=== PATIENT | female | born 1930 | race Caucasian/White ===

== ENCOUNTER 2016-11-25 19:54 | Inpatient (IN) | payer MEDICARE, OTHER ==
--- NOTE | 2016-11-25 20:28 | EDM.PDOC ---
ED HPI GENERAL MEDICAL PROBLEM - General Chief Complaint: Respiratory Problem Stated Complaint: FEVER Time Seen by Provider: 11/25/16 20:02 Source of Information: Reports: Patient, Family History Limitations: Reports: Respiratory Distress - History of Present Illness INITIAL COMMENTS - FREE TEXT/NARRATIVE: 86 years old w f come to the ed with her daughter due to F/C, weakness and cough. Pt lives by herself. Pt has IDDM (bridle), No dysuria. No other acute medical Issues at this time. Onset: Today, Gradual, Unknown/Unsure Onset Date: 11/24/16 Onset Time: 18:00 Duration: Day(s): Location: Reports: Chest Quality: Reports: Ache Severity: Mild Improves with: Reports: None Worsens with: Reports: Breathing Associated Symptoms: Reports: Fever/Chills, Nausea/Vomiting - Related Data Allergies Allergy/AdvReac Type Severity Reaction Status Date / Time amoxicillin Allergy Hives Verified 04/28/16 16:41 erythromycin base Allergy Swelling Verified 05/19/16 13:10 Fish Containing Products Allergy Swelling Verified 05/19/16 13:10 iodine Allergy Swelling Verified 04/28/16 16:41 latex Allergy Swelling Verified 04/28/16 16:41 Penicillins Allergy Hives Verified 04/28/16 16:41 Home Meds: Home Meds Furosemide 20 mg PO DAILY 11/30/15 [History] Insulin Aspart [NovoLOG] 5 unit SQ WITHMEALSANDBED 11/30/15 [History] Insulin Glarg,Human.Rec.Analog [LantUS Solostar] 28 unit SUBCUT DAILY 11/30/15 [ History] Levothyroxine Sodium [Synthroid] 75 mcg PO ACBREAKFAST 11/30/15 [History] Losartan [Cozaar] 100 mg PO DAILY 11/30/15 [History] Metoprolol Succinate [Toprol XL] 50 mg PO DAILY 11/30/15 [History] amLODIPine [Norvasc] 10 mg PO DAILY 11/30/15 [History] Albuterol/Ipratropium [DuoNeb 3.0-0.5 MG/3 ML] 1 inh INH DAILY 05/19/16 [History ] Cholecalciferol (Vitamin D3) [Vitamin D3] 1,000 unit PO DAILY 05/19/16 [History] Multivitamin [Multi-Vitamin Daily] 1 tab PO DAILY 05/19/16 [History] Potassium Chloride 10 meq PO BID 05/19/16 [History] Past Medical History HEENT History: Reports: Impaired Vision Cardiovascular History: Reports: Hypertension Respiratory History: Reports: Other (See Below) Other Respiratory History: smoker's cough Gastrointestinal History: Reports: Bowel Obstruction, Cholelithiasis, Chronic Diarrhea Genitourinary History: Reports: UTI, Recurrent 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 Dermatologic History: Reports: Eczema - Infectious Disease History Infectious Disease History: Reports: Chicken Pox, Measles, Shingles - Past Surgical History HEENT Surgical History: Reports: Adenoidectomy, Cataract Surgery, Tonsillectomy GI Surgical History: Reports: Appendectomy, Cholecystectomy, Colostomy, Other ( See Below) Musculoskeletal Surgical History: Reports: None Social & Family History - Family History Family Medical History: Noncontributory - Tobacco Use Smoking Status *Q: Current Every Day Smoker Years of Tobacco use: 40 Packs/Tins Daily: 1 Second Hand Smoke Exposure: No - Caffeine Use Caffeine Use: Reports: Coffee, Tea - Recreational Drug Use Recreational Drug Use: No ED ROS GENERAL - Review of Systems Review Of Systems: See Below Constitutional: Reports: Fever, Chills, Weakness, Decreased Appetite HEENT: Reports: No Symptoms Respiratory: Reports: Cough Cardiovascular: Reports: No Symptoms Endocrine: Reports: No Symptoms GI/Abdominal: Reports: No Symptoms : Reports: No Symptoms Musculoskeletal: Reports: Other (gen weakness) Skin: Reports: No Symptoms Neurological: Reports: Weakness Psychiatric: Reports: No Symptoms Hematologic/Lymphatic: Reports: No Symptoms Immunologic: Reports: No Symptoms ED EXAM, GENERAL - Physical Exam Exam: See Below Exam Limited By: No Limitations (poor historian) General Appearance: Alert, WD/WN, Mild Distress, Thin Eye Exam: Bilateral Eye: Normal Inspection Ears: Normal External Exam Ear Exam: Bilateral Ear: Auricle Normal Nose: Normal Inspection, Normal Mucosa, No Blood Throat/Mouth: Normal Inspection Head: Atraumatic, Normocephalic Neck: Normal Inspection, Supple, Non-Tender Respiratory/Chest: No Respiratory Distress, Decreased Breath Sounds (r lung), Rhonchi Cardiovascular: Normal Peripheral Pulses, Regular Rate, Rhythm, No Edema Peripheral Pulses: 3+: Femoral (L), Femoral (R) GI/Abdominal: Normal Bowel Sounds, Soft, Non-Tender, No Organomegaly (Female) Exam: Deferred Rectal (Female) Exam: Deferred Back Exam: Normal Inspection, Full Range of Motion Extremities: Normal Inspection, Normal Range of Motion, Non-Tender, No Pedal Edema, Normal Capillary Refill Neurological: Alert, Oriented, CN II-XII Intact, Normal Cognition, No Motor/ Sensory Deficits Psychiatric: Normal Affect, Normal Mood Skin Exam: Warm, Dry, Intact, Normal Color, No Rash Lymphatic: No Adenopathy EKG INTERPRETATION EKG Date: 11/25/16 Time: 21:20 Rhythm: NSR Rate (Beats/Min): 87 [place]: Normal P-Wave: Present QRS: Normal ST-T: Normal QT: Normal Comparison: NA - No Prior EKG EKG Interpretation Comments: QTc 437, Nl Course - Vital Signs Text/Narrative:: 86 years old w f come to the ed with her daughter due to F/C, weakness and cough. Pt lives by herself. Pt has IDDM (bridle), No dysuria. No other acute medical Issues at this time. PE: F/C, decr. BS r lung, poor insp effort. Labs: WBC 21K, UA: Pos for UTI. Na 131, K 4.3, BUN 33, Cr. 1.2 GFR 47 BCx pending, BNP 125 CXRL: Infiltrate RLL of lung, official report is pending ECG: NS QTc 437 Impression: UTI, Pneumonia, weakness, hyponatremia, renal insuff. IDDM with hyperglycemia (294) Tx: Levoquin 750 mg, Motrin, NS. Benadryl for chills. Reexam: improved Plan: Admit to [facility]. Levoquine dose needs to be adjusted due to decr. GFR Last Recorded V/S: Last Vital Signs Temp 36.6 C 11/26/16 03:45 Pulse 78 11/26/16 03:45 Resp 20 11/26/16 03:45 BP 114/42 L 11/26/16 03:45 Pulse Ox 93 L 11/26/16 03:45 - Orders/Labs/Meds Orders: Active Orders 24 hr Category Date Time Status CXR [Chest 2V] [CR] Stat Exams 11/25/16 20:25 Taken CULTURE BLOOD [BC] Urgent Lab 11/25/16 20:40 Received CULTURE BLOOD [BC] Urgent Lab 11/25/16 20:45 Received Blood Culture x2 Reflex Set [OM.PC] Urgent Oth 11/25/16 20:46 Ordered Medication Orders Acetaminophen (Tylenol) 650 mg PO Q4H PRN PRN Reason: Pain (Mild 1-3)/fever Last Admin: 11/25/16 22:18 Dose: 650 mg Sodium Chloride (Normal Saline) 250 mls @ 50 mls/hr IV ASDIRECTED NICKI Last Admin: 11/25/16 22:06 Dose: 50 mls/hr Ibuprofen (Motrin) 600 mg PO Q6H PRN PRN Reason: Pain (mild 1-3) Insulin Human Regular (Humulin R) 0 unit SUBCUT QID [facility] PRN Reason: Protocol Ondansetron HCl (Zofran) 4 mg IV Q4H PRN PRN Reason: Nausea/Vomiting Last Admin: 11/25/16 21:50 Dose: 4 mg Sodium Chloride (Saline Flush) 10 ml FLUSH ASDIRECTED PRN PRN Reason: Keep Vein Open Labs: Laboratory Tests 11/25/16 11/25/16 11/25/16 Range/Units 20:40 20:40 20:40 WBC 21.5 H (4.5-12.0) X10-3/uL RBC 3.74 (3.23-5.20) x10(6)uL Hgb 11.6 (11.5-15.5) g/dL Hct 33.8 (30.0-51.3) % MCV 90.4 (80-96) fL MCH 31.1 (27.7-33.6) pg MCHC 34.4 (32.2-35.4) g/dL RDW 11.8 (11.5-15.5) % Plt Count 288 (125-369) X10(3)uL MPV 8.4 (7.4-10.4) fL Add Manual Diff Yes Neutrophils % (Manual) 82 (46-82) % Band Neutrophils % 4 (0-6) % Lymphocytes % (Manual) 7 L (13-37) % Monocytes % (Manual) 7 (4-12) % PT 10.3 (8.7-11.1) INR 1.02 (0.89-1.13) Sodium 131 L (135-145) mmol/L Potassium 4.3 (3.5-5.3) mmol/L Chloride 99 L D (100-110) mmol/L Carbon Dioxide 23 (23-29) mmol/L BUN 33 H D (8-23) mg/dL Creatinine 1.2 (0.6-1.3) mg/dL Est Cr Clr Drug Dosing TNP Estimated GFR (MDRD) 43 L (>60) BUN/Creatinine Ratio 27.5 H (9-20) Glucose 294 H (80-116) mg/dL Lactic Acid (0.5-2.2) mmol/L Calcium 8.6 (8.6-10.2) mg/dL Total Bilirubin 0.7 (0.1-1.3) mg/dL Direct Bilirubin 0.1 (0.1-0.2) mg/dL AST 22 D (5-27) IU/L ALT 12 L (14-26) IU/L Alkaline Phosphatase 80 (56-112) IU/L Troponin I (0.02-0.06) NG/ML B-Natriuretic Peptide (0-100) pg/mL Total Protein 6.8 (6.0-8.0) g/dL Albumin 3.7 (3.2-4.6) g/dL Urine Color (YELLOW) Urine Appearance (CLEAR) Urine pH (5.0-6.5) Ur Specific [place] (1.010-1.025) Urine Protein (NEGATIVE) mg/dL Urine Glucose (UA) (NEGATIVE) mg/dL Urine Ketones (NEGATIVE) mg/dL Urine Occult Blood (NEGATIVE) Urine Nitrite (NEGATIVE) Urine Bilirubin (NEGATIVE) Urine Urobilinogen (NEGATIVE) mg/dL Ur Leukocyte Esterase (NEGATIVE) Urine RBC (0) Urine WBC (0) Ur Squamous Epith Cells (NS,R,O) Urine Bacteria (NS) 11/25/16 11/25/16 11/25/16 Range/Units 20:40 20:45 20:45 WBC (4.5-12.0) X10-3/uL RBC (3.23-5.20) x10(6)uL Hgb (11.5-15.5) g/dL Hct (30.0-51.3) % MCV (80-96) fL MCH (27.7-33.6) pg MCHC (32.2-35.4) g/dL RDW (11.5-15.5) % Plt Count (125-369) X10(3)uL MPV (7.4-10.4) fL Add Manual Diff Neutrophils % (Manual) (46-82) % Band Neutrophils % (0-6) % Lymphocytes % (Manual) (13-37) % Monocytes % (Manual) (4-12) % PT (8.7-11.1) INR (0.89-1.13) Sodium (135-145) mmol/L Potassium (3.5-5.3) mmol/L Chloride (100-110) mmol/L Carbon Dioxide (23-29) mmol/L BUN (8-23) mg/dL Creatinine (0.6-1.3) mg/dL Est Cr Clr Drug Dosing Estimated GFR (MDRD) (>60) BUN/Creatinine Ratio (9-20) Glucose (80-116) mg/dL Lactic Acid 1.2 (0.5-2.2) mmol/L Calcium (8.6-10.2) mg/dL Total Bilirubin (0.1-1.3) mg/dL Direct Bilirubin (0.1-0.2) mg/dL AST (5-27) IU/L ALT (14-26) IU/L Alkaline Phosphatase (56-112) IU/L Troponin I < 0.01 L (0.02-0.06) NG/ML B-Natriuretic Peptide 124 H (0-100) pg/mL Total Protein (6.0-8.0) g/dL Albumin (3.2-4.6) g/dL Urine Color (YELLOW) Urine Appearance (CLEAR) Urine pH (5.0-6.5) Ur Specific [place] (1.010-1.025) Urine Protein (NEGATIVE) mg/dL Urine Glucose (UA) (NEGATIVE) mg/dL Urine Ketones (NEGATIVE) mg/dL Urine Occult Blood (NEGATIVE) Urine Nitrite (NEGATIVE) Urine Bilirubin (NEGATIVE) Urine Urobilinogen (NEGATIVE) mg/dL Ur Leukocyte Esterase (NEGATIVE) Urine RBC (0) Urine WBC (0) Ur Squamous Epith Cells (NS,R,O) Urine Bacteria (NS) 11/25/16 Range/Units 21:00 WBC (4.5-12.0) X10-3/uL RBC (3.23-5.20) x10(6)uL Hgb (11.5-15.5) g/dL Hct (30.0-51.3) % MCV (80-96) fL MCH (27.7-33.6) pg MCHC (32.2-35.4) g/dL RDW (11.5-15.5) % Plt Count (125-369) X10(3)uL MPV (7.4-10.4) fL Add Manual Diff Neutrophils % (Manual) (46-82) % Band Neutrophils % (0-6) % Lymphocytes % (Manual) (13-37) % Monocytes % (Manual) (4-12) % PT (8.7-11.1) INR (0.89-1.13) Sodium (135-145) mmol/L Potassium (3.5-5.3) mmol/L Chloride (100-110) mmol/L Carbon Dioxide (23-29) mmol/L BUN (8-23) mg/dL Creatinine (0.6-1.3) mg/dL Est Cr Clr Drug Dosing Estimated GFR (MDRD) (>60) BUN/Creatinine Ratio (9-20) Glucose (80-116) mg/dL Lactic Acid (0.5-2.2) mmol/L Calcium (8.6-10.2) mg/dL Total Bilirubin (0.1-1.3) mg/dL Direct Bilirubin (0.1-0.2) mg/dL AST (5-27) IU/L ALT (14-26) IU/L Alkaline Phosphatase (56-112) IU/L Troponin I (0.02-0.06) NG/ML B-Natriuretic Peptide (0-100) pg/mL Total Protein (6.0-8.0) g/dL Albumin (3.2-4.6) g/dL Urine Color Yellow (YELLOW) Urine Appearance Clear (CLEAR) Urine pH 5.0 (5.0-6.5) Ur Specific [place] 1.015 (1.010-1.025) Urine Protein Trace (NEGATIVE) mg/dL Urine Glucose (UA) 250 H (NEGATIVE) mg/dL Urine Ketones Negative (NEGATIVE) mg/dL Urine Occult Blood Moderate H (NEGATIVE) Urine Nitrite Negative (NEGATIVE) Urine Bilirubin Negative (NEGATIVE) Urine Urobilinogen Normal (NEGATIVE) mg/dL Ur Leukocyte Esterase Large H (NEGATIVE) Urine RBC 5-10 (0) Urine WBC 10-20 H (0) Ur Squamous Epith Cells Few H (NS,R,O) Urine Bacteria Moderate H (NS) Meds: Medications Generic Name Dose Route Start Last Admin Trade Name Moisés PRN Reason Stop Dose Admin Acetaminophen 650 mg 11/25/16 21:03 11/25/16 22:18 Tylenol PO 650 mg Q4H PRN Administration Pain (Mild 1-3)/fever Sodium Chloride 250 mls @ 50 mls/hr 11/25/16 22:00 11/25/16 22:06 Normal Saline IV 50 mls/hr ASDIRECTED NICKI Administration Ibuprofen 600 mg 11/25/16 21:03 Motrin PO Q6H PRN Pain (mild 1-3) Insulin Human Regular 0 unit 11/26/16 09:00 Humulin R SUBCUT QID [facility] Protocol Ondansetron HCl 4 mg 11/25/16 21:03 11/25/16 21:50 Zofran IV 4 mg Q4H PRN Administration Nausea/Vomiting Sodium Chloride 10 ml 11/25/16 21:03 Saline Flush FLUSH ASDIRECTED PRN Keep Vein Open Discontinued Medications Generic Name Dose Route Start Last Admin Trade Name Moisés PRN Reason Stop Dose Admin Diphenhydramine HCl 25 mg 11/25/16 22:06 11/25/16 22:20 Benadryl IVPUSH 11/25/16 22:07 25 mg ONETIME ONE Administration Levofloxacin/Dextrose 750 mg/ 150 mls @ 100 mls/hr 11/25/16 20:57 11/25/16 22 :00 Premix IV 11/25/16 22:26 100 mls/hr ONETIME ONE Administration Insulin Human Regular 0 unit 11/26/16 09:00 Humulin R SUBCUT TID [facility] Protocol Departure - Departure Time of Disposition: 18:00 Disposition: Admitted As Inpatient 66 Condition: Fair Clinical Impression: Hyponatremia, Renal insufficiency, IDDM (insulin dependent diabetes mellitus), UTI (urinary tract infection), bacterial, Dehydration Pneumonia Qualifiers: Pneumonia type: aspiration pneumonia Aspiration pneumonia type: due to vomit Laterality: right Lung location: lower lobe of lung Qualified Code(s): J69.0 - Pneumonitis due to inhalation of food and vomit Elevated white blood cell count Qualifiers: Leukocytosis type: unspecified Qualified Code(s): D72.829 - Elevated white blood cell count, unspecified - Discharge Information - My Orders Last 24 Hours: My Active Orders 11/25/16 20:25 CXR [Chest 2V] [CR] Stat 11/25/16 20:40 CULTURE BLOOD [BC] Urgent 11/25/16 20:45 CULTURE BLOOD [BC] Urgent 11/25/16 20:46 Blood Culture x2 Reflex Set [OM.PC] Urgent - Assessment/Plan Last 24 Hours: My Active Orders 11/25/16 20:25 CXR [Chest 2V] [CR] Stat 11/25/16 20:40 CULTURE BLOOD [BC] Urgent 11/25/16 20:45 CULTURE BLOOD [BC] Urgent 11/25/16 20:46 Blood Culture x2 Reflex Set [OM.PC] Urgent
[2016-11-25] MEDS ORDERED: Levofloxacin/Dextrose 5%-Water 750 MG in Premix Bag 1 BAG IV ONE (20:57)
[2016-11-25] MEDS ORDERED: Sodium Chloride 0.9% 10 ML Syringe FLUSH PRN (21:03)
[2016-11-25] MEDS: Ondansetron 4 MG/2 ML SDV IV PRN (21:50)
[2016-11-25] MEDS ORDERED: Sodium Chloride 0.9% 250 ML IV SCH (22:00)
[2016-11-25] MEDS ORDERED: diphenhydrAMINE 50 MG/ML SDV IVPUSH ONE (22:06)
[2016-11-25] MEDS: Acetaminophen 325 MG Tab PO PRN (22:18)
[2016-11-26] MEDS ORDERED: Enoxaparin 40 MG/0.4 ML Syringe SUBCUT SCH (09:00)
[2016-11-26] MEDS ORDERED: Insulin Regular, Human 100 Units/ML 3 ML Vial SUBCUT SCH ×2 (09:00)
[2016-11-26] MEDS ORDERED: Insulin Detemir 100 Units/ML 3 ML Pen SUBCUT SCH (09:00)
[2016-11-26] MEDS: Insulin Aspart 100 Units/ML 3 ML Pen SUBCUT SCH ×4 (09:15→20:22)
[2016-11-26] MEDS: Insulin Aspart 100 Units/ML 3 ML Pen SUBCUT PRN (09:19)
--- NOTE | 2016-11-26 09:25 | PCM.HP ---
H&P History of Present Illness - General Date of Service: 11/26/16 Admit Problem/Dx: Admission Diagnosis/Problem Admission Diagnosis/Problem Pneumonia Source of Information: Patient - Related Data Allergies/Adverse Reactions: Allergies Allergy/AdvReac Type Severity Reaction Status Date / Time amoxicillin Allergy Hives Verified 04/28/16 16:41 erythromycin base Allergy Swelling Verified 05/19/16 13:10 Fish Containing Products Allergy Swelling Verified 05/19/16 13:10 iodine Allergy Swelling Verified 04/28/16 16:41 latex Allergy Swelling Verified 04/28/16 16:41 Penicillins Allergy Hives Verified 04/28/16 16:41 Home Medications: Home Meds Furosemide 20 mg PO DAILY 11/30/15 [History] Insulin Aspart [NovoLOG] 5 unit SQ WITHMEALSANDBED 11/30/15 [History] Insulin Glarg,Human.Rec.Analog [LantUS Solostar] 28 unit SUBCUT DAILY 11/30/15 [ History] Levothyroxine Sodium [Synthroid] 75 mcg PO ACBREAKFAST 11/30/15 [History] Losartan [Cozaar] 100 mg PO DAILY 11/30/15 [History] Metoprolol Succinate [Toprol XL] 50 mg PO DAILY 11/30/15 [History] amLODIPine [Norvasc] 10 mg PO DAILY 11/30/15 [History] Albuterol/Ipratropium [DuoNeb 3.0-0.5 MG/3 ML] 1 inh INH DAILY 05/19/16 [History ] Cholecalciferol (Vitamin D3) [Vitamin D3] 1,000 unit PO DAILY 05/19/16 [History] Multivitamin [Multi-Vitamin Daily] 1 tab PO DAILY 05/19/16 [History] Potassium Chloride 10 meq PO BID 05/19/16 [History] Past Medical History HEENT History: Reports: Impaired Vision Other HEENT History: Wears glasses. Cardiovascular History: Reports: Hypertension Other Cardiovascular History: Has experienced heart failure after surgeries. Respiratory History: Reports: Other (See Below) Other Respiratory History: smoker's cough Gastrointestinal History: Reports: Bowel Obstruction, Cholelithiasis, Chronic Diarrhea Other Gastrointestinal History: Small bowel obstruction with lysis of adhesions. 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 Neurological History: Reports: Neuropathy, Diabetic Other Neuro History: Seizure with low blood sugar episode. 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 - Infectious Disease History Infectious Disease History: Reports: Chicken Pox, Measles, Shingles - Past Surgical History HEENT Surgical History: Reports: Adenoidectomy, Cataract Surgery, Tonsillectomy GI Surgical History: Reports: Appendectomy, Cholecystectomy, Colostomy, Other ( See Below) Musculoskeletal Surgical History: Reports: None Social & Family History - Family History Family Medical History: Noncontributory - Tobacco Use Smoking Status *Q: Current Every Day Smoker Years of Tobacco use: 40 Packs/Tins Daily: 1 Second Hand Smoke Exposure: No - Caffeine Use Caffeine Use: Reports: Coffee, Tea - Recreational Drug Use Recreational Drug Use: No Exam - Vital Signs Vital Signs: Last Vital Signs Temp 98 F 11/26/16 03:45 Pulse 78 11/26/16 03:45 Resp 20 11/26/16 03:45 BP 114/42 L 11/26/16 03:45 Pulse Ox 93 L 11/26/16 03:45 Weight: 65.68 kg - Patient Data Lab Results Last 24 hrs: Laboratory Results - last 24 hr 11/26/16 Range/Units 06:06 POC Glucose 286 H D (80-116) mg/dL Result Diagrams: 11/25/16 20:40 11/25/16 20:40 *Q Meaningful Use (ADM) - VTE *Q VTE Criteria *Q: - Stroke *Q Stroke Criteria *Q: - AMI *Q AMI Criteria *Q: Orders Last 24hrs: Active Orders 24 hr Category Date Time Status Blood Glucose Check, Bedside [RC] QIDACANDBED Care 11/26/16 06:45 Active Daily Weight [Height and Weight] [RC] DAILY Care 11/26/16 08:56 Ordered Diabetes Education [RC] DAILY Care 11/26/16 08:56 Ordered Intake and Output Strict [RC] Q4H Care 11/26/16 09:14 Ordered RT Incentive Spirometry [RC] Q2HWA Care 11/26/16 08:56 Ordered OT Evaluation and Treatment [CONS] Routine Cons 11/26/16 08:56 Ordered PT Evaluation and Treatment [CONS] Routine Cons 11/26/16 08:56 Ordered CXR [Chest 2V] [CR] Routine Exams 11/28/16 06:00 Ordered BASIC METABOLIC PANEL,BMP [CHEM] Routine Lab 11/26/16 08:53 Ordered CBC W/O DIFF,HEMOGRAM [HEME] Routine Lab 11/26/16 08:56 Ordered CRP [C-REACTIVE PROTEIN] [CHEM] Routine Lab 11/26/16 09:13 Ordered CULTURE URINE [RM] Stat Lab 11/25/16 21:00 Received GLYCOSYLATED HEMOGLOBIN,HGBA1C [CHEM] Routine Lab 11/26/16 08:56 Ordered TROPONIN I [CHEM] Q6H Lab 11/26/16 09:00 Ordered TROPONIN I [CHEM] Q6H Lab 11/26/16 15:00 Ordered TSH ULTRASENSITIVE [CHEM] Routine Lab 11/26/16 08:56 Ordered Enoxaparin [Lovenox] Med 11/26/16 09:00 Ordered 40 mg SUBCUT DAILY Furosemide [Lasix] Med 11/26/16 09:00 Ordered 20 mg PO DAILY Insulin Aspart [NovoLOG] Med 11/26/16 12:00 Ordered 5 unit SUBCUT WITHMEALSANDBED Insulin Aspart [NovoLOG] Med 11/26/16 08:28 Ordered See Protocol SUBCUT TIDMEALS PRN Insulin Detemir [Levemir] Med 11/26/16 21:00 Ordered 28 unit SUBCUT DAILY Levothyroxine Med 11/27/16 07:30 Ordered 75 mcg PO ACBREAKFAST Losartan [Cozaar] Med 11/26/16 09:00 Ordered 100 mg PO DAILY Metoprolol Succinate [Toprol XL] Med 11/26/16 09:00 Ordered 50 mg PO DAILY Multivitamins [Tab-A-[place]] Med 11/26/16 09:00 Ordered 1 tab PO DAILY Potassium Chloride [Klor-Con M20] Med 11/26/16 09:00 Ordered 10 meq PO BID Sodium Chloride 0.9% @ 100 MLS/HR(1,000ml) Med 11/26/16 09:15 Ordered Sodium Chloride 0.9% [Normal Saline] 1,000 ml IV ASDIRECTED Sodium Chloride 0.9% [Normal Saline] 250 ml Med 11/25/16 22:00 Active IV ASDIRECTED amLODIPine [Norvasc] Med 11/26/16 09:00 Ordered 10 mg PO DAILY Code Status [Resuscitation Status] Routine Resus Stat 11/26/16 09:08 Ordered Medication Orders Acetaminophen (Tylenol) 650 mg PO Q4H PRN PRN Reason: Pain (Mild 1-3)/fever Last Admin: 11/25/16 22:18 Dose: 650 mg Amlodipine Besylate (Norvasc) 10 mg PO DAILY [facility] Enoxaparin Sodium (Lovenox) 40 mg SUBCUT DAILY NICKI Furosemide (Lasix) 20 mg PO DAILY [facility] Sodium Chloride (Normal Saline) 250 mls @ 50 mls/hr IV ASDIRECTED NICKI Last Admin: 11/25/16 22:06 Dose: 50 mls/hr Sodium Chloride (Normal Saline) 1,000 mls @ 100 mls/hr IV ASDIRECTED NICKI Ibuprofen (Motrin) 600 mg PO Q6H PRN PRN Reason: Pain (mild 1-3) Insulin Aspart (Novolog) 5 unit SUBCUT WITHMEALSANDBED [facility] Last Admin: 11/26/16 09:15 Dose: 11 units Insulin Aspart (Novolog) 0 unit SUBCUT TIDMEALS PRN; Protocol PRN Reason: hypergycemia Insulin Detemir (Levemir) 28 unit SUBCUT DAILY [facility] Levothyroxine Sodium (Levothyroxine) 75 mcg PO ACBREAKFAST [facility] Losartan Potassium (Cozaar) 100 mg PO DAILY [facility] Metoprolol Succinate (Toprol Xl) 50 mg PO DAILY [facility] Multivitamins/Minerals/Vitamin C (Tab-A-[place]) 1 tab PO DAILY [facility] Ondansetron HCl (Zofran) 4 mg IV Q4H PRN PRN Reason: Nausea/Vomiting Last Admin: 11/25/16 21:50 Dose: 4 mg Potassium Chloride (Klor-Con 10) 10 meq PO BID [facility] Sodium Chloride (Saline Flush) 10 ml FLUSH ASDIRECTED PRN PRN Reason: Keep Vein Open
[2016-11-26] MEDS: Sodium Chloride 0.9% 1,000 ML IV SCH (10:29)
[2016-11-26] MEDS: Furosemide 20 MG Tab PO SCH (10:30)
[2016-11-26] MEDS: Metoprolol Succinate 50 MG Tab.ER PO SCH (10:30)
[2016-11-26] MEDS: Multivitamin Tab PO SCH (10:31)
[2016-11-26] MEDS: Levothyroxine 75 MCG Tab PO SCH (10:31)
[2016-11-26] MEDS: amLODIPine 10 MG Tab PO SCH (10:31)
[2016-11-26] MEDS: Losartan 100 MG Tab PO SCH (10:32)
[2016-11-26] MEDS: Potassium Chloride 10 MEQ Tab.ER PO SCH ×2 (10:32→20:12)
[2016-11-26] MEDS: Insulin Detemir 100 Units/ML 3 ML Pen SUBCUT SCH (10:42)
--- NOTE | 2016-11-26 10:51 | PCM.HP ---
H&P History of Present Illness - General Admit Problem/Dx: Admission Diagnosis/Problem Admission Diagnosis/Problem Pneumonia/Hemorrhagic Cystitis Pt is a pleasant 86y female who presented to the ER last night for sudden onset of nausea, generalized weakness, and fatigue beginning 2 days ago after she returned home from dinner that night. noted her blood sugars had been running just a bit higher than normal (usually in the 140-150 mg/dL as she checks roughly 5-6 times a day and adjusts her bolus insulin accordingly) otherwise had been feeling well and her usual state of health prior. When she woke up the follow morning (yesterday) she noted sweats, chills nausea, without vomiting, increased cough and change in sputum production (every day smoker). she had no appetite and "just felt weak." did note that is was a little more difficult to urinate, but no other symptoms of uti as she has a hx of recurrent uti. none in the last 90 days. she has loose stools that havent changed from her baseline, and no blood or melena noted. "i like chocolate so they are sometimes dark." She is 1 ppd smoker for over 40 years. she uses a duo/neb every morning on a chronic bases. She is otherwise completely independent of all ADLs and uses a cane occasionally if going to be doing alot of activity. Still drives and lives independently in her own home. her daughter (lives in [facility] nd is here with her and confirms the above. PCP is Dr. Julio César MD and she denies any recent change in diagnosis, medications, hospital admissions, immunizations, travel or ill contacts in the last 90 days. - Related Data Allergies/Adverse Reactions: Allergies Allergy/AdvReac Type Severity Reaction Status Date / Time amoxicillin Allergy Hives Verified 04/28/16 16:41 erythromycin base Allergy Swelling Verified 05/19/16 13:10 Fish Containing Products Allergy Swelling Verified 05/19/16 13:10 iodine Allergy Swelling Verified 04/28/16 16:41 latex Allergy Swelling Verified 04/28/16 16:41 Penicillins Allergy Hives Verified 04/28/16 16:41 Home Medications: Home Meds Furosemide 20 mg PO DAILY 11/30/15 [History] Insulin Aspart [NovoLOG] 5 unit SQ WITHMEALSANDBED 11/30/15 [History] Insulin Glarg,Human.Rec.Analog [LantUS Solostar] 28 unit SUBCUT DAILY 11/30/15 [ History] Levothyroxine Sodium [Synthroid] 75 mcg PO ACBREAKFAST 11/30/15 [History] Losartan [Cozaar] 100 mg PO DAILY 11/30/15 [History] Metoprolol Succinate [Toprol XL] 75 mg PO DAILY 11/30/15 [History] amLODIPine [Norvasc] 10 mg PO DAILY 11/30/15 [History] Albuterol/Ipratropium [DuoNeb 3.0-0.5 MG/3 ML] 1 inh INH DAILY 05/19/16 [History ] Cholecalciferol (Vitamin D3) [Vitamin D3] 1,000 unit PO DAILY 05/19/16 [History] Multivitamin [Multi-Vitamin Daily] 1 tab PO DAILY 05/19/16 [History] Potassium Chloride 10 meq PO BID 05/19/16 [History] Past Medical History HEENT History: Reports: Impaired Vision Other HEENT History: Wears glasses. Cardiovascular History: Reports: Hypertension Other Cardiovascular History: Has experienced heart failure after surgeries. Respiratory History: Reports: Other (See Below) Other Respiratory History: smoker's cough Gastrointestinal History: Reports: Bowel Obstruction, Cholelithiasis, Chronic Diarrhea Other Gastrointestinal History: Small bowel obstruction with lysis of adhesions. 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 Neurological History: Reports: Neuropathy, Diabetic Other Neuro History: Seizure with low blood sugar episode. 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 - Infectious Disease History Infectious Disease History: Reports: Chicken Pox, Measles, Shingles - Past Surgical History HEENT Surgical History: Reports: Adenoidectomy, Cataract Surgery, Tonsillectomy GI Surgical History: Reports: Appendectomy, Cholecystectomy, Colostomy, Other ( See Below) Musculoskeletal Surgical History: Reports: None Social & Family History - Family History Family Medical History: Noncontributory - Tobacco Use Smoking Status *Q: Current Every Day Smoker Years of Tobacco use: 40 Packs/Tins Daily: 1 Second Hand Smoke Exposure: No - Caffeine Use Caffeine Use: Reports: Coffee, Tea - Recreational Drug Use Recreational Drug Use: No H&P Review of Systems - Review of Systems: Review Of Systems: See Below General: Reports: Fever, Chills, Weakness, Fatigue, Diaphoresis, Decreased Appetite HEENT: Reports: No Symptoms Pulmonary: Reports: Shortness of Breath, Cough, Sputum. Denies: Hemoptysis Cardiovascular: Reports: Dyspnea on Exertion. Denies: Orthopnea, Edema, Syncope Gastrointestinal: Reports: Diarrhea, Decreased Appetite, Nausea. Denies: Abdominal Pain, Black Stool, Bloody Stool, Vomiting Genitourinary: Reports: Urgency. Denies: Hematuria, Flank Pain Musculoskeletal: Reports: No Symptoms Skin: Reports: Dryness (face with eczema to arms at times.), Lesions (SK mainly to back. ) Psychiatric: Reports: Cravings (nicotine dependent) Neurological: Reports: Weakness Hematologic/Lymphatic: Reports: No Symptoms Immunologic: Reports: Seasonal Allergy, Other (med, iodine and latex allergies. see above. ) Exam - Exam Exam: See Below - Vital Signs Vital Signs: Last Vital Signs Temp 98 F 11/26/16 08:00 Pulse 78 11/26/16 10:30 Resp 18 11/26/16 08:00 BP 126/61 11/26/16 10:32 Pulse Ox 94 L 11/26/16 08:00 Weight: 65.68 kg - Exam General: Alert, Oriented, Cooperative, Other (Sitting upright in chair just finished breakfast and talking with daughter. does not appear ill.) HEENT: Conjunctiva Clear, EACs Clear, EOMI, Hearing Intact (slightly decreased) , Mucosa Moist & Standing Pine, Nares Patent, Posterior Pharynx Clear, Pupils Equal Neck: Supple, Trachea Midline, +2 Carotid Pulse wo Bruit, Full Range of Motion, Lymphadenopathy. No: Thyromegaly Lungs: Normal Respiratory Effort, Rales (coarse left mid and lower ordonez inspratory. minimal expiratory wheeze. right otherwise clear but diminshed. ) Cardiovascular: Regular Rate, Regular Rhythm, Normal S1, Normal S2, Systolic Murmur (2/6) Abdomen: Normal Bowel Sounds, Soft, Pelvis Stable, Other (insulin injection sites healthy tissue. ). No: Organomegaly, Guarding Back Exam: Normal Inspection, Full Range of Motion, Other (scattered benign sebborrheric keratosis diffuse without inflammation. ). No: CVA Tenderness (R) , CVA Tenderness (L) Extremities: Normal Pulses, Edema (tr-1+ bilate dorsum of feet to mid concepcion. not usual for her. but she is unsure why she takes a water pill. ). No: Calf Tenderness Peripheral Pulses: 2+: Carotid (L), Carotid (R), Radial (L), Radial (R), Femoral (L), Femoral (R), Posterior Tibial (L), Posterior Tibial (R), Dorsalis Pedis (L), Dorsalis Pedis (R) Skin: Warm, Dry, Other (drying to the face around the nasal bridges. ) Neurological: Cranial Nerves Intact, Strength Equal Bilateral, Normal Speech, Sensation Intact Neuro Extensive - Motor, Sensory, Reflexes: CN II-XII Intact Psychiatric: Alert, Normal Affect, Normal Mood, Other (excellent historian) - Patient Data Lab Results Last 24 hrs: Laboratory Results - last 24 hr 11/26/16 11/26/16 11/26/16 Range/Units 06:06 09:12 09:12 WBC 25.7 H (4.5-12.0) X10-3/uL RBC 3.41 (3.23-5.20) x10(6)uL Hgb 10.9 L (11.5-15.5) g/dL Hct 30.9 (30.0-51.3) % MCV 90.7 (80-96) fL MCH 31.9 (27.7-33.6) pg MCHC 35.2 (32.2-35.4) g/dL RDW 12.0 (11.5-15.5) % Plt Count 238 (125-369) X10(3)uL Sodium 130 L (135-145) mmol/L Potassium 5.1 (3.5-5.3) mmol/L Chloride 98 L (100-110) mmol/L Carbon Dioxide 25 (23-29) mmol/L BUN 36 H (8-23) mg/dL Creatinine 1.4 H (0.6-1.3) mg/dL Est Cr Clr Drug Dosing 23.86 mL/min Estimated GFR (MDRD) 36 L (>60) BUN/Creatinine Ratio 25.7 H (9-20) Glucose 419 H* D (80-116) mg/dL POC Glucose 286 H D (80-116) mg/dL Hemoglobin A1c (4.0-6.0) % Calcium 8.2 L (8.6-10.2) mg/dL Troponin I (0.02-0.06) NG/ML C-Reactive Protein (0.0-1.0) mg/dL TSH, Ultra Sensitive (0.4-5.5) nlU/mL 11/26/16 11/26/16 11/26/16 Range/Units 09:12 09:12 09:12 WBC (4.5-12.0) X10-3/uL RBC (3.23-5.20) x10(6)uL Hgb (11.5-15.5) g/dL Hct (30.0-51.3) % MCV (80-96) fL MCH (27.7-33.6) pg MCHC (32.2-35.4) g/dL RDW (11.5-15.5) % Plt Count (125-369) X10(3)uL Sodium (135-145) mmol/L Potassium (3.5-5.3) mmol/L Chloride (100-110) mmol/L Carbon Dioxide (23-29) mmol/L BUN (8-23) mg/dL Creatinine (0.6-1.3) mg/dL Est Cr Clr Drug Dosing mL/min Estimated GFR (MDRD) (>60) BUN/Creatinine Ratio (9-20) Glucose (80-116) mg/dL POC Glucose (80-116) mg/dL Hemoglobin A1c 7.6 H (4.0-6.0) % Calcium (8.6-10.2) mg/dL Troponin I < 0.01 L (0.02-0.06) NG/ML C-Reactive Protein (0.0-1.0) mg/dL TSH, Ultra Sensitive 0.62 (0.4-5.5) nlU/mL 11/26/16 Range/Units 09:12 WBC (4.5-12.0) X10-3/uL RBC (3.23-5.20) x10(6)uL Hgb (11.5-15.5) g/dL Hct (30.0-51.3) % MCV (80-96) fL MCH (27.7-33.6) pg MCHC (32.2-35.4) g/dL RDW (11.5-15.5) % Plt Count (125-369) X10(3)uL Sodium (135-145) mmol/L Potassium (3.5-5.3) mmol/L Chloride (100-110) mmol/L Carbon Dioxide (23-29) mmol/L BUN (8-23) mg/dL Creatinine (0.6-1.3) mg/dL Est Cr Clr Drug Dosing mL/min Estimated GFR (MDRD) (>60) BUN/Creatinine Ratio (9-20) Glucose (80-116) mg/dL POC Glucose (80-116) mg/dL Hemoglobin A1c (4.0-6.0) % Calcium (8.6-10.2) mg/dL Troponin I (0.02-0.06) NG/ML C-Reactive Protein 15.3 H* (0.0-1.0) mg/dL TSH, Ultra Sensitive (0.4-5.5) nlU/mL Result Diagrams: 11/27/16 06:28 11/27/16 06:28 *Q Meaningful Use (ADM) - VTE *Q VTE Criteria *Q: VTE Mechanical Contraindications *Q: At Risk for Falls - Stroke *Q Stroke Criteria *Q: - AMI *Q AMI Criteria *Q: - Problem List (1) COPD with acute lower respiratory infection SNOMED Code(s): 174918879 ICD Code: J44.0 - CHRONIC OBSTRUCTIVE PULMON DISEASE W ACUTE LOWER RESP INFCT Status: Acute Priority: High Current Visit: Yes (2) Acute hemorrhagic cystitis SNOMED Code(s): 47841661 ICD Code: N30.01 - ACUTE CYSTITIS WITH HEMATURIA Status: Acute Priority: High Current Visit: Yes (3) Blood bacterial culture positive SNOMED Code(s): 261687483 ICD Code: R78.81 - BACTEREMIA Status: Acute Priority: High Current Visit: Yes (4) Sepsis SNOMED Code(s): 24498368 ICD Code: A41.9 - SEPSIS, UNSPECIFIED ORGANISM Status: Acute Priority: High Current Visit: Yes Qualifiers: Sepsis type: sepsis due to unspecified organism Qualified Code(s): A41.9 - Sepsis, unspecified organism (5) Renal insufficiency SNOMED Code(s): 896038722, 394375252 ICD Code: N28.9 - DISORDER OF KIDNEY AND URETER, UNSPECIFIED Status: Acute Priority: High Current Visit: Yes (6) Elevated white blood cell count SNOMED Code(s): 715655269, 981791721 ICD Code: D72.829 - ELEVATED WHITE BLOOD CELL COUNT, UNSPECIFIED Status: Acute Priority: High Current Visit: Yes Qualifiers: Leukocytosis type: unspecified Qualified Code(s): D72.829 - Elevated white blood cell count, unspecified (7) Dehydration SNOMED Code(s): 45613945 ICD Code: E86.0 - DEHYDRATION Status: Acute Priority: High Current Visit: Yes (8) Hyperglycemia due to type 2 diabetes mellitus SNOMED Code(s): 160595486285423, 761634932408549 ICD Code: E11.65 - TYPE 2 DIABETES MELLITUS WITH HYPERGLYCEMIA Status: Acute Priority: High Current Visit: Yes Qualifiers: 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 Qualified Code( s): E11.65 - Type 2 diabetes mellitus with hyperglycemia; Z79.4 - intermodal customer service ( current) use of insulin (9) DNI (do not intubate) SNOMED Code(s): 346625855 ICD Code: Z78.9 - OTHER SPECIFIED HEALTH STATUS Status: Chronic Current Visit: Yes (10) DNR (do not resuscitate) Status: Chronic Current Visit: Yes (11) CHF (congestive heart failure) SNOMED Code(s): 60075533 ICD Code: I50.9 - HEART FAILURE, UNSPECIFIED Status: Chronic Current Visit: Yes Qualifiers: Congestive heart failure chronicity: chronic (12) Hypothyroidism SNOMED Code(s): 47914462 ICD Code: E03.9 - HYPOTHYROIDISM, UNSPECIFIED Status: Chronic Current Visit: Yes (13) Decreased mobility and endurance SNOMED Code(s): 6837690 ICD Code: Z74.09 - OTHER REDUCED MOBILITY Status: Acute Priority: High Current Visit: Yes (14) Mobilizes using aids SNOMED Code(s): 385530526 ICD Code: Z99.89 - DEPENDENCE ON OTHER ENABLING MACHINES AND DEVICES Status : Chronic Current Visit: Yes (15) Palliative care status SNOMED Code(s): 620656925 ICD Code: Z51.5 - ENCOUNTER FOR PALLIATIVE CARE Status: Acute Priority: High Current Visit: Yes (16) HTN, goal below 140/90 SNOMED Code(s): 30894315 ICD Code: I10 - ESSENTIAL (PRIMARY) HYPERTENSION Status: Chronic Current Visit: Yes (17) Tobacco dependence SNOMED Code(s): 74569113 ICD Code: F17.200 - NICOTINE DEPENDENCE, UNSPECIFIED, UNCOMPLICATED Status : Acute Current Visit: Yes (18) Hyponatremia SNOMED Code(s): 03335255 ICD Code: E87.1 - HYPO-OSMOLALITY AND HYPONATREMIA Status: Acute Current Visit: Yes (19) IDDM (insulin dependent diabetes mellitus) SNOMED Code(s): 29609215 ICD Code: E11.9 - TYPE 2 DIABETES MELLITUS WITHOUT COMPLICATIONS; Z79.4 - SENIOR SVP (CURRENT) USE OF INSULIN Status: Chronic Priority: High Current Visit: Yes Problem List Initiated/Reviewed/Updated: Yes Orders Last 24hrs: Active Orders 24 hr Category Date Time Status Blood Glucose Check, Bedside [RC] QIDACANDBED Care 11/26/16 06:45 Active Daily Weight [Height and Weight] [RC] DAILY Care 11/26/16 08:56 Active Diabetes Education [RC] DAILY Care 11/26/16 08:56 Active Head of Bed Elevation [RC] ASDIRECTED Care 11/26/16 10:38 Ordered Intake and Output Strict [RC] Q4H Care 11/26/16 09:14 Active Notify Provider Intake and Out [RC] ASDIRECTED Care 11/26/16 10:38 Ordered Notify Provider [RC] PRN Care 11/26/16 10:38 Ordered RT Aerosol Therapy [RC] ASDIRECTED Care 11/26/16 09:26 Active RT Incentive Spirometry [RC] Q2HWA Care 11/26/16 08:56 Active Smoking Cessation Education [RC] Click to Edit Care 11/26/16 10:40 Ordered OT Evaluation and Treatment [CONS] Routine Cons 11/26/16 08:56 Active PT Evaluation and Treatment [CONS] Routine Cons 11/26/16 08:56 Active CXR [Chest 2V] [CR] Routine Exams 11/28/16 06:00 Ordered CBC WITH AUTO DIFF [HEME] AM Lab 11/27/16 05:11 Ordered COMPREHENSIVE METABOLIC PN,CMP [CHEM] AM Lab 11/27/16 05:11 Ordered CULTURE URINE [RM] Stat Lab 11/25/16 21:00 Received Guaiac [OCCULT BLOOD DIAGNOSTIC] [OP] Routine Lab 11/26/16 10:37 Uncollected TROPONIN I [CHEM] Q6H Lab 11/26/16 15:00 Ordered Albuterol/Ipratropium [DuoNeb 3.0-0.5 MG/3 ML] Med 11/26/16 09:30 Active 3 ml NEB Q8H Emollient [Vanicream] Med 11/26/16 10:15 Ordered See Dose Instructions TOP DAILY Enoxaparin [Lovenox] Med 11/26/16 10:45 Ordered 30 mg SUBCUT Q24H Furosemide [Lasix] Med 11/26/16 09:00 Active 20 mg PO DAILY Insulin Aspart [NovoLOG] Med 11/26/16 08:30 Active 5 unit SUBCUT WITHMEALSANDBED Insulin Aspart [NovoLOG] Med 11/26/16 08:28 Active See Protocol SUBCUT TIDMEALS PRN Insulin Detemir [Levemir] Med 11/26/16 09:30 Active 28 unit SUBCUT DAILY Levofloxacin/Dextrose 5%-Water [Levaquin in D5W 750 MG/ Med 11/27/16 21:00 Ordered 150 ML] 750 mg Premix Bag 1 bag IV Q48H Levothyroxine Med 11/26/16 08:30 Active 75 mcg PO ACBREAKFAST Losartan [Cozaar] Med 11/26/16 09:00 Active 100 mg PO DAILY Metoprolol Succinate [Toprol XL] Med 11/26/16 09:00 Active 50 mg PO DAILY Multivitamins [Tab-A-Marco Antonio] Med 11/26/16 09:00 Active 1 tab PO DAILY Nicotine [Habitrol] Med 11/26/16 10:15 Ordered 14 mg TRDERM DAILY Potassium Chloride [Klor-Con 10] Med 11/26/16 09:00 Active 10 meq PO BID Sodium Chloride 0.9% [Normal Saline] 1,000 ml Med 11/26/16 09:15 Active IV ASDIRECTED Sodium Chloride 0.9% [Normal Saline] 250 ml Med 11/25/16 22:00 Active IV ASDIRECTED Vancomycin Pharmacy to Dose [Pharmacy to Dose - Med 11/26/16 10:45 Ordered Vancomycin] 1 dose .XX ASDIRECTED Vancomycin [Vancocin] 1 gm Med 11/26/16 10:30 Ordered Sodium Chloride 0.9% [Normal Saline] 250 ml IV Q24H amLODIPine [Norvasc] Med 11/26/16 09:00 Active 10 mg PO DAILY Code Status [Resuscitation Status] Routine Resus Stat 11/26/16 09:08 Ordered Medication Orders Acetaminophen (Tylenol) 650 mg PO Q4H PRN PRN Reason: Pain (Mild 1-3)/fever Last Admin: 11/25/16 22:18 Dose: 650 mg Albuterol/Ipratropium (Duoneb 3.0-0.5 Mg/3 Ml) 3 ml NEB Q8H [facility] Amlodipine Besylate (Norvasc) 10 mg PO DAILY NICKI Last Admin: 11/26/16 10:31 Dose: 10 mg Emollient Ointment (Vanicream) 0 gm TOP DAILY [facility]ICKI Furosemide (Lasix) 20 mg PO DAILY NICKI Last Admin: 11/26/16 10:30 Dose: 20 mg Sodium Chloride (Normal Saline) 250 mls @ 50 mls/hr IV ASDIRECTED NICKI Last Admin: 11/25/16 22:06 Dose: 50 mls/hr Sodium Chloride (Normal Saline) 1,000 mls @ 100 mls/hr IV ASDIRECTED NICKI Last Admin: 11/26/16 10:29 Dose: 100 mls/hr Vancomycin HCl 1,000 mg/ (Sodium Chloride) 250 mls @ 167 mls/hr IV Q24H NICKI Levofloxacin/Dextrose 750 mg/ (Premix) 150 mls @ 100 mls/hr IV Q48H [facility]ICKI Ibuprofen (Motrin) 600 mg PO Q6H PRN PRN Reason: Pain (mild 1-3) Insulin Aspart (Novolog) 5 unit SUBCUT WITHMEALSANDBED [facility] Last Admin: 11/26/16 09:15 Dose: 11 units Insulin Aspart (Novolog) 0 unit SUBCUT TIDMEALS PRN; Protocol PRN Reason: hypergycemia Last Admin: 11/26/16 09:19 Dose: 1 unit Insulin Detemir (Levemir) 28 unit SUBCUT DAILY [facility] Last Admin: 11/26/16 10:42 Dose: 28 units Levothyroxine Sodium (Levothyroxine) 75 mcg PO ACBREAKFAST [facility] Last Admin: 11/26/16 10:31 Dose: 75 mcg Losartan Potassium (Cozaar) 100 mg PO DAILY [facility] Last Admin: 11/26/16 10:32 Dose: 100 mg Metoprolol Succinate (Toprol Xl) 50 mg PO DAILY [facility] Last Admin: 11/26/16 10:30 Dose: 50 mg Multivitamins/Minerals/Vitamin C (Tab-A-Marco Antonio) 1 tab PO DAILY [facility] Last Admin: 11/26/16 10:31 Dose: 1 tab Nicotine (Habitrol) 14 mg TRDERM DAILY [facility] Ondansetron HCl (Zofran) 4 mg IV Q4H PRN PRN Reason: Nausea/Vomiting Last Admin: 11/25/16 21:50 Dose: 4 mg Potassium Chloride (Klor-Con 10) 10 meq PO BID [facility] Last Admin: 11/26/16 10:32 Dose: 10 meq Sodium Chloride (Saline Flush) 10 ml FLUSH ASDIRECTED PRN PRN Reason: Keep Vein Open Vancomycin HCl (Pharmacy To Dose - Vancomycin) 1 dose .XX ASDIRECTED [facility]
[2016-11-26] MEDS: Albuterol/Ipratropium 3.0-0.5 MG/3 ML Neb Soln NEB SCH ×2 (11:24→17:32)
[2016-11-26] MEDS: Nicotine 14 MG/24 Hr Patch TRDERM SCH (13:06)
[2016-11-26] MEDS: Emollient 454 GM Jar TOP SCH (13:16)
[2016-11-26] MEDS: metroNIDAZOLE/Normal Saline 500 MG in Premix Bag 1 BAG IV SCH ×2 (15:21→21:58)
[2016-11-26] MEDS: Meropenem 1 GM in Sodium Chloride 0.9% 100 ML IV SCH (17:31)
[2016-11-27] MEDS: Ibuprofen 600 MG Tab PO PRN ×2 (00:10→21:48)
[2016-11-27] MEDS: Sodium Chloride 0.9% 1,000 ML IV SCH ×2 (00:42→16:33)
[2016-11-27] MEDS: Albuterol/Ipratropium 3.0-0.5 MG/3 ML Neb Soln NEB SCH ×3 (01:51→18:49)
[2016-11-27] MEDS: Meropenem 1 GM in Sodium Chloride 0.9% 100 ML IV SCH ×2 (03:33→15:57)
[2016-11-27] MEDS: metroNIDAZOLE/Normal Saline 500 MG in Premix Bag 1 BAG IV SCH ×3 (05:29→17:00)
[2016-11-27] MEDS: Levothyroxine 75 MCG Tab PO SCH (06:30)
--- NOTE | 2016-11-27 06:55 | PCM.SN ---
- Free Text/Narrative Note: Admission History & Physical H&P History of Present Illness - General Admit Problem/Dx: Date: 11/26/2016 Admission Diagnosis/Problem Pneumonia/Hemorrhagic Cystitis Pt is a pleasant 86y female who presented to the ER last night for sudden onset of nausea, generalized weakness, and fatigue beginning 2 days ago after she returned home from dinner that night. noted her blood sugars had been running just a bit higher than normal (usually in the 140-150 mg/dL as she checks roughly 5-6 times a day and adjusts her bolus insulin accordingly) otherwise had been feeling well and her usual state of health prior. When she woke up the follow morning (yesterday) she noted sweats, chills nausea, without vomiting, increased cough and change in sputum production (every day smoker). she had no appetite and "just felt weak." did note that is was a little more difficult to urinate, but no other symptoms of uti as she has a hx of recurrent uti. none in the last 90 days. she has loose stools that havent changed from her baseline, and no blood or melena noted. "i like chocolate so they are sometimes dark." She is 1 ppd smoker for over 40 years. she uses a duo/neb every morning on a chronic bases. She is otherwise completely independent of all ADLs and uses a cane occasionally if going to be doing alot of activity. Still drives and lives independently in her own home. her daughter (lives in [facility] nd is here with her and confirms the above. PCP is Dr. Julio César MD and she denies any recent change in diagnosis, medications, hospital admissions, immunizations, travel or ill contacts in the last 90 days. - Related Data Allergies/Adverse Reactions: Allergies Allergy/AdvReac Type Severity Reaction Status Date / Time amoxicillin Allergy Hives Verified 04/28/16 16:41 erythromycin base Allergy Swelling Verified 05/19/16 13:10 Fish Containing Products Allergy Swelling Verified 05/19/16 13:10 iodine Allergy Swelling Verified 04/28/16 16:41 latex Allergy Swelling Verified 04/28/16 16:41 Penicillins Allergy Hives Verified 04/28/16 16:41 Home Medications: Home Meds Furosemide 20 mg PO DAILY 11/30/15 [History] Insulin Aspart [NovoLOG] 5 unit SQ WITHMEALSANDBED 11/30/15 [History] Insulin Glarg,Human.Rec.Analog [LantUS Solostar] 28 unit SUBCUT DAILY 11/30/15 [ History] Levothyroxine Sodium [Synthroid] 75 mcg PO ACBREAKFAST 11/30/15 [History] Losartan [Cozaar] 100 mg PO DAILY 11/30/15 [History] Metoprolol Succinate [Toprol XL] 75 mg PO DAILY 11/30/15 [History] amLODIPine [Norvasc] 10 mg PO DAILY 11/30/15 [History] Albuterol/Ipratropium [DuoNeb 3.0-0.5 MG/3 ML] 1 inh INH DAILY 05/19/16 [History ] Cholecalciferol (Vitamin D3) [Vitamin D3] 1,000 unit PO DAILY 05/19/16 [History] Multivitamin [Multi-Vitamin Daily] 1 tab PO DAILY 05/19/16 [History] Potassium Chloride 10 meq PO BID 05/19/16 [History] Past Medical History HEENT History: Reports: Impaired Vision Other HEENT History: Wears glasses. Cardiovascular History: Reports: Hypertension Other Cardiovascular History: Has experienced heart failure after surgeries. Respiratory History: Reports: Other (See Below) Other Respiratory History: smoker's cough Gastrointestinal History: Reports: Bowel Obstruction, Cholelithiasis, Chronic Diarrhea Other Gastrointestinal History: Small bowel obstruction with lysis of adhesions. 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 Neurological History: Reports: Neuropathy, Diabetic Other Neuro History: Seizure with low blood sugar episode. 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 - Infectious Disease History Infectious Disease History: Reports: Chicken Pox, Measles, Shingles - Past Surgical History HEENT Surgical History: Reports: Adenoidectomy, Cataract Surgery, Tonsillectomy GI Surgical History: Reports: Appendectomy, Cholecystectomy, Colostomy, Other ( See Below) Musculoskeletal Surgical History: Reports: None Social & Family History - Family History Family Medical History: Noncontributory - Tobacco Use Smoking Status *Q: Current Every Day Smoker Years of Tobacco use: 40 Packs/Tins Daily: 1 Second Hand Smoke Exposure: No - Caffeine Use Caffeine Use: Reports: Coffee, Tea - Recreational Drug Use Recreational Drug Use: No - Review of Systems: Review Of Systems: See Below General: Reports: Fever, Chills, Weakness, Fatigue, Diaphoresis, Decreased Appetite HEENT: Reports: No Symptoms Pulmonary: Reports: Shortness of Breath, Cough, Sputum. Denies: Hemoptysis Cardiovascular: Reports: Dyspnea on Exertion. Denies: Orthopnea, Edema, Syncope Gastrointestinal: Reports: Diarrhea, Decreased Appetite, Nausea. Denies: Abdominal Pain, Black Stool, Bloody Stool, Vomiting Genitourinary: Reports: Urgency. Denies: Hematuria, Flank Pain Musculoskeletal: Reports: No Symptoms Skin: Reports: Dryness (face with eczema to arms at times.), Lesions (SK mainly to back. ) Psychiatric: Reports: Cravings (nicotine dependent) Neurological: Reports: Weakness Hematologic/Lymphatic: Reports: No Symptoms Immunologic: Reports: Seasonal Allergy, Other (med, iodine and latex allergies. see above. ) Exam - Vital Signs Vital Signs: Last Vital Signs Temp 98 F 11/26/16 08:00 Pulse 78 11/26/16 10:30 Resp 18 11/26/16 08:00 BP 126/61 11/26/16 10:32 Pulse Ox 94 L 11/26/16 08:00 Weight: 65.68 kg - Exam General: Alert, Oriented, Cooperative, Other (Sitting upright in chair just finished breakfast and talking with daughter. does not appear ill.) HEENT: Conjunctiva Clear, EACs Clear, EOMI, Hearing Intact (slightly decreased) , Mucosa Moist & Her[place], Nares Patent, Posterior Pharynx Clear, Pupils Equal Neck: Supple, Trachea Midline, +2 Carotid Pulse wo Bruit, Full Range of Motion, Lymphadenopathy. No: Thyromegaly Lungs: Normal Respiratory Effort, Rales (coarse left mid and lower ordonez inspratory. minimal expiratory wheeze. right otherwise clear but diminshed. ) Cardiovascular: Regular Rate, Regular Rhythm, Normal S1, Normal S2, Systolic Murmur (2/6) Abdomen: Normal Bowel Sounds, Soft, Pelvis Stable, Other (insulin injection sites healthy tissue. ). No: Organomegaly, Guarding Back Exam: Normal Inspection, Full Range of Motion, Other (scattered benign sebborrheric keratosis diffuse without inflammation. ). No: CVA Tenderness (R) , CVA Tenderness (L) Extremities: Normal Pulses, Edema (tr-1+ bilate dorsum of feet to mid concepcion. not usual for her. but she is unsure why she takes a water pill. ). No: Calf Tenderness Peripheral Pulses: 2+: Carotid (L), Carotid (R), Radial (L), Radial (R), Femoral (L), Femoral (R), Posterior Tibial (L), Posterior Tibial (R), Dorsalis Pedis (L), Dorsalis Pedis (R) Skin: Warm, Dry, Other (drying to the face around the nasal bridges. ) Neurological: Cranial Nerves Intact, Strength Equal Bilateral, Normal Speech, Sensation Intact Neuro Extensive - Motor, Sensory, Reflexes: CN II-XII Intact Psychiatric: Alert, Normal Affect, Normal Mood, Other (excellent historian) - Patient Data Lab Results Last 24 hrs: Laboratory Results - last 24 hr 11/26/16 11/26/16 11/26/16 Range/Units 06:06 09:12 09:12 WBC 25.7 H (4.5-12.0) X10-3/uL RBC 3.41 (3.23-5.20) x10(6)uL Hgb 10.9 L (11.5-15.5) g/dL Hct 30.9 (30.0-51.3) % MCV 90.7 (80-96) fL MCH 31.9 (27.7-33.6) pg MCHC 35.2 (32.2-35.4) g/dL RDW 12.0 (11.5-15.5) % Plt Count 238 (125-369) X10(3)uL Sodium 130 L (135-145) mmol/L Potassium 5.1 (3.5-5.3) mmol/L Chloride 98 L (100-110) mmol/L Carbon Dioxide 25 (23-29) mmol/L BUN 36 H (8-23) mg/dL Creatinine 1.4 H (0.6-1.3) mg/dL Est Cr Clr Drug Dosing 23.86 mL/min Estimated GFR (MDRD) 36 L (>60) BUN/Creatinine Ratio 25.7 H (9-20) Glucose 419 H* D (80-116) mg/dL POC Glucose 286 H D (80-116) mg/dL Hemoglobin A1c (4.0-6.0) % Calcium 8.2 L (8.6-10.2) mg/dL Troponin I (0.02-0.06) NG/ML C-Reactive Protein (0.0-1.0) mg/dL TSH, Ultra Sensitive (0.4-5.5) nlU/mL 11/26/16 11/26/16 11/26/16 Range/Units 09:12 09:12 09:12 WBC (4.5-12.0) X10-3/uL RBC (3.23-5.20) x10(6)uL Hgb (11.5-15.5) g/dL Hct (30.0-51.3) % MCV (80-96) fL MCH (27.7-33.6) pg MCHC (32.2-35.4) g/dL RDW (11.5-15.5) % Plt Count (125-369) X10(3)uL Sodium (135-145) mmol/L Potassium (3.5-5.3) mmol/L Chloride (100-110) mmol/L Carbon Dioxide (23-29) mmol/L BUN (8-23) mg/dL Creatinine (0.6-1.3) mg/dL Est Cr Clr Drug Dosing mL/min Estimated GFR (MDRD) (>60) BUN/Creatinine Ratio (9-20) Glucose (80-116) mg/dL POC Glucose (80-116) mg/dL Hemoglobin A1c 7.6 H (4.0-6.0) % Calcium (8.6-10.2) mg/dL Troponin I < 0.01 L (0.02-0.06) NG/ML C-Reactive Protein (0.0-1.0) mg/dL TSH, Ultra Sensitive 0.62 (0.4-5.5) nlU/mL 11/26/16 Range/Units 09:12 WBC (4.5-12.0) X10-3/uL RBC (3.23-5.20) x10(6)uL Hgb (11.5-15.5) g/dL Hct (30.0-51.3) % MCV (80-96) fL MCH (27.7-33.6) pg MCHC (32.2-35.4) g/dL RDW (11.5-15.5) % Plt Count (125-369) X10(3)uL Sodium (135-145) mmol/L Potassium (3.5-5.3) mmol/L Chloride (100-110) mmol/L Carbon Dioxide (23-29) mmol/L BUN (8-23) mg/dL Creatinine (0.6-1.3) mg/dL Est Cr Clr Drug Dosing mL/min Estimated GFR (MDRD) (>60) BUN/Creatinine Ratio (9-20) Glucose (80-116) mg/dL POC Glucose (80-116) mg/dL Hemoglobin A1c (4.0-6.0) % Calcium (8.6-10.2) mg/dL Troponin I (0.02-0.06) NG/ML C-Reactive Protein 15.3 H* (0.0-1.0) mg/dL TSH, Ultra Sensitive (0.4-5.5) nlU/mL *Q Meaningful Use (ADM) - VTE *Q VTE Criteria *Q: VTE Mechanical Contraindications *Q: At Risk for Falls - Stroke *Q Stroke Criteria *Q: - AMI *Q AMI Criteria *Q: - Problem List (1) COPD with acute lower respiratory infection SNOMED Code(s): 340694720 ICD Code: J44.0 - CHRONIC OBSTRUCTIVE PULMON DISEASE W ACUTE LOWER RESP INFCT Status: Acute Priority: High Current Visit: Yes (2) Acute hemorrhagic cystitis SNOMED Code(s): 96506352 ICD Code: N30.01 - ACUTE CYSTITIS WITH HEMATURIA Status: Acute Priority: High Current Visit: Yes (3) Blood bacterial culture positive SNOMED Code(s): 892132052 ICD Code: R78.81 - BACTEREMIA Status: Acute Priority: High Current Visit: Yes (4) Sepsis SNOMED Code(s): 81870392 ICD Code: A41.9 - SEPSIS, UNSPECIFIED ORGANISM Status: Acute Priority: High Current Visit: Yes Qualifiers: Sepsis type: sepsis due to unspecified organism Qualified Code(s): A41.9 - Sepsis, unspecified organism (5) Renal insufficiency SNOMED Code(s): 229891695, 384570590 ICD Code: N28.9 - DISORDER OF KIDNEY AND URETER, UNSPECIFIED Status: Acute Priority: High Current Visit: Yes (6) Elevated white blood cell count SNOMED Code(s): 316154331, 583976319 ICD Code: D72.829 - ELEVATED WHITE BLOOD CELL COUNT, UNSPECIFIED Status: Acute Priority: High Current Visit: Yes Qualifiers: Leukocytosis type: unspecified Qualified Code(s): D72.829 - Elevated white blood cell count, unspecified (7) Dehydration SNOMED Code(s): 97916772 ICD Code: E86.0 - DEHYDRATION Status: Acute Priority: High Current Visit: Yes (8) Hyperglycemia due to type 2 diabetes mellitus SNOMED Code(s): 412776993036794, 390750485564773 ICD Code: E11.65 - TYPE 2 DIABETES MELLITUS WITH HYPERGLYCEMIA Status: Acute Priority: High Current Visit: Yes Qualifiers: Diabetes mellitus oil heaterman insulin use: with oil heaterman use Qualified Code( s): E11.65 - Type 2 diabetes mellitus with hyperglycemia; Z79.4 - group home ( current) use of insulin (9) DNI (do not intubate) SNOMED Code(s): 322390506 ICD Code: Z78.9 - OTHER SPECIFIED HEALTH STATUS Status: Chronic Current Visit: Yes (10) DNR (do not resuscitate) Status: Chronic Current Visit: Yes (11) CHF (congestive heart failure) SNOMED Code(s): 68562247 ICD Code: I50.9 - HEART FAILURE, UNSPECIFIED Status: Chronic Current Visit: Yes Qualifiers: Congestive heart failure chronicity: chronic (12) Hypothyroidism SNOMED Code(s): 67156945 ICD Code: E03.9 - HYPOTHYROIDISM, UNSPECIFIED Status: Chronic Current Visit: Yes (13) Decreased mobility and endurance SNOMED Code(s): 4257808 ICD Code: Z74.09 - OTHER REDUCED MOBILITY Status: Acute Priority: High Current Visit: Yes (14) Mobilizes using aids SNOMED Code(s): 435411333 ICD Code: Z99.89 - DEPENDENCE ON OTHER ENABLING MACHINES AND DEVICES Status : Chronic Current Visit: Yes (15) Palliative care status SNOMED Code(s): 527561498 ICD Code: Z51.5 - ENCOUNTER FOR PALLIATIVE CARE Status: Acute Priority: High Current Visit: Yes (16) HTN, goal below 140/90 SNOMED Code(s): 85395620 ICD Code: I10 - ESSENTIAL (PRIMARY) HYPERTENSION Status: Chronic Current Visit: Yes (17) Tobacco dependence SNOMED Code(s): 68049073 ICD Code: F17.200 - NICOTINE DEPENDENCE, UNSPECIFIED, UNCOMPLICATED Status : Acute Current Visit: Yes (18) Hyponatremia SNOMED Code(s): 72037897 ICD Code: E87.1 - HYPO-OSMOLALITY AND HYPONATREMIA Status: Acute Current Visit: Yes (19) IDDM (insulin dependent diabetes mellitus) SNOMED Code(s): 16536340 ICD Code: E11.9 - TYPE 2 DIABETES MELLITUS WITHOUT COMPLICATIONS; Z79.4 - PAPER SHEETER (CURRENT) USE OF INSULIN Status: Chronic Priority: High Current Visit: Yes Problem List Initiated/Reviewed/Updated: Yes Orders Last 24hrs: Active Orders 24 hr Category Date Time Status Blood Glucose Check, Bedside [RC] QIDACANDBED Care 11/26/16 06:45 Active Daily Weight [Height and Weight] [RC] DAILY Care 11/26/16 08:56 Active Diabetes Education [RC] DAILY Care 11/26/16 08:56 Active Head of Bed Elevation [RC] ASDIRECTED Care 11/26/16 10:38 Ordered Intake and Output Strict [RC] Q4H Care 11/26/16 09:14 Active Notify Provider Intake and Out [RC] ASDIRECTED Care 11/26/16 10:38 Ordered Notify Provider [RC] PRN Care 11/26/16 10:38 Ordered RT Aerosol Therapy [RC] ASDIRECTED Care 11/26/16 09:26 Active RT Incentive Spirometry [RC] Q2HWA Care 11/26/16 08:56 Active Smoking Cessation Education [RC] Click to Edit Care 11/26/16 10:40 Ordered OT Evaluation and Treatment [CONS] Routine Cons 11/26/16 08:56 Active PT Evaluation and Treatment [CONS] Routine Cons 11/26/16 08:56 Active CXR [Chest 2V] [CR] Routine Exams 11/28/16 06:00 Ordered CBC WITH AUTO DIFF [HEME] AM Lab 11/27/16 05:11 Ordered COMPREHENSIVE METABOLIC PN,CMP [CHEM] AM Lab 11/27/16 05:11 Ordered CULTURE URINE [RM] Stat Lab 11/25/16 21:00 Received Guaiac [OCCULT BLOOD DIAGNOSTIC] [OP] Routine Lab 11/26/16 10:37 Uncollected TROPONIN I [CHEM] Q6H Lab 11/26/16 15:00 Ordered Albuterol/Ipratropium [DuoNeb 3.0-0.5 MG/3 ML] Med 11/26/16 09:30 Active 3 ml NEB Q8H Emollient [Vanicream] Med 11/26/16 10:15 Ordered See Dose Instructions TOP DAILY Enoxaparin [Lovenox] Med 11/26/16 10:45 Ordered 30 mg SUBCUT Q24H Furosemide [Lasix] Med 11/26/16 09:00 Active 20 mg PO DAILY Insulin Aspart [NovoLOG] Med 11/26/16 08:30 Active 5 unit SUBCUT WITHMEALSANDBED Insulin Aspart [NovoLOG] Med 11/26/16 08:28 Active See Protocol SUBCUT TIDMEALS PRN Insulin Detemir [Levemir] Med 11/26/16 09:30 Active 28 unit SUBCUT DAILY Levofloxacin/Dextrose 5%-Water [Levaquin in D5W 750 MG/ Med 11/27/16 21:00 Ordered 150 ML] 750 mg Premix Bag 1 bag IV Q48H Levothyroxine Med 11/26/16 08:30 Active 75 mcg PO ACBREAKFAST Losartan [Cozaar] Med 11/26/16 09:00 Active 100 mg PO DAILY Metoprolol Succinate [Toprol XL] Med 11/26/16 09:00 Active 50 mg PO DAILY Multivitamins [Tab-A-Marco Antonio] Med 11/26/16 09:00 Active 1 tab PO DAILY Nicotine [Habitrol] Med 11/26/16 10:15 Ordered 14 mg TRDERM DAILY Potassium Chloride [Klor-Con 10] Med 11/26/16 09:00 Active 10 meq PO BID Sodium Chloride 0.9% [Normal Saline] 1,000 ml Med 11/26/16 09:15 Active IV ASDIRECTED Sodium Chloride 0.9% [Normal Saline] 250 ml Med 11/25/16 22:00 Active IV ASDIRECTED Vancomycin Pharmacy to Dose [Pharmacy to Dose - Med 11/26/16 10:45 Ordered Vancomycin] 1 dose .XX ASDIRECTED Vancomycin [Vancocin] 1 gm Med 11/26/16 10:30 Ordered Sodium Chloride 0.9% [Normal Saline] 250 ml IV Q24H amLODIPine [Norvasc] Med 11/26/16 09:00 Active 10 mg PO DAILY Code Status [Resuscitation Status] Routine Resus Stat 11/26/16 09:08 Ordered Medication Orders Acetaminophen (Tylenol) 650 mg PO Q4H PRN PRN Reason: Pain (Mild 1-3)/fever Last Admin: 11/25/16 22:18 Dose: 650 mg Albuterol/Ipratropium (Duoneb 3.0-0.5 Mg/3 Ml) 3 ml NEB Q8H NICKI Amlodipine Besylate (Norvasc) 10 mg PO DAILY [facility] Last Admin: 11/26/16 10:31 Dose: 10 mg Emollient Ointment (Vanicream) 0 gm TOP DAILY NICKI Furosemide (Lasix) 20 mg PO DAILY [facility] Last Admin: 11/26/16 10:30 Dose: 20 mg Sodium Chloride (Normal Saline) 250 mls @ 50 mls/hr IV ASDIRECTED [facility] Last Admin: 11/25/16 22:06 Dose: 50 mls/hr Sodium Chloride (Normal Saline) 1,000 mls @ 100 mls/hr IV ASDIRECTED [facility] Last Admin: 11/26/16 10:29 Dose: 100 mls/hr Vancomycin HCl 1,000 mg/ (Sodium Chloride) 250 mls @ 167 mls/hr IV Q24H NICKI Levofloxacin/Dextrose 750 mg/ (Premix) 150 mls @ 100 mls/hr IV Q48H NICKI Ibuprofen (Motrin) 600 mg PO Q6H PRN PRN Reason: Pain (mild 1-3) Insulin Aspart (Novolog) 5 unit SUBCUT WITHMEALSANDBED [facility] Last Admin: 11/26/16 09:15 Dose: 11 units Insulin Aspart (Novolog) 0 unit SUBCUT TIDMEALS PRN; Protocol PRN Reason: hypergycemia Last Admin: 11/26/16 09:19 Dose: 1 unit Insulin Detemir (Levemir) 28 unit SUBCUT DAILY [facility] Last Admin: 11/26/16 10:42 Dose: 28 units Levothyroxine Sodium (Levothyroxine) 75 mcg PO ACBREAKFAST [facility] Last Admin: 11/26/16 10:31 Dose: 75 mcg Losartan Potassium (Cozaar) 100 mg PO DAILY [facility] Last Admin: 11/26/16 10:32 Dose: 100 mg Metoprolol Succinate (Toprol Xl) 50 mg PO DAILY [facility] Last Admin: 11/26/16 10:30 Dose: 50 mg Multivitamins/Minerals/Vitamin C (Tab-A-Marco Antonio) 1 tab PO DAILY [facility] Last Admin: 11/26/16 10:31 Dose: 1 tab Nicotine (Habitrol) 14 mg TRDERM DAILY [facility] Ondansetron HCl (Zofran) 4 mg IV Q4H PRN PRN Reason: Nausea/Vomiting Last Admin: 11/25/16 21:50 Dose: 4 mg Potassium Chloride (Klor-Con 10) 10 meq PO BID [facility] Last Admin: 11/26/16 10:32 Dose: 10 meq Sodium Chloride (Saline Flush) 10 ml FLUSH ASDIRECTED PRN PRN Reason: Keep Vein Open Vancomycin HCl (Pharmacy To Dose - Vancomycin) 1 dose .XX ASDIRECTED [facility] PLAN: 1. continue levofloxacin but change dosing per renal function. bloods cultures X 2 sets as well as urine culture have preliminary positive will add vanco, double cover for psuedomonas and add metronidazole until id and susceptibilities return. choices taken into account allergies. RT for o2 to be keep >92%, nebs increased to tid, IS q2h while awake, try for sputum culture. repeat cxr on Monday. Will supplement nicotine. 2. continue hydration with NS as potassium a bit high, she will still continue orals and carb consistent diet. Strict in/out. Daily weights. will add SSS to her current insulin regimen. discussed hyperglycemia in the setting of sepsis and the need for adequate control. she is very concerned about extra insulin as she states " i can go low quickly." however, as we are speaking, nurse came in to report her current glucose was 415 mg/dL and she was quite disturbed as ' that is really high'. now more open to additional insulin with meals if needed. will watch for s/s of lows. 3. Tylenol for fevers and comfort. emollient to face. 4. follow additional trop set. ekg unremarkable. monitor vitals closely. will continue home medications as is for now. metoprolol with stay at 50 mg daily ( but states she takes 75 mg daily at home). continue lasix oral along with potassium as some edema, mild elevation in BNP and with increase insulin and nebs will likely drop K+ levels. will monitor. cardiac murmur and with bacteremia and signs of mild CHF will get echocardiagram to evaluate valves for possible vegetations as able as well as function. 5. watch stools for melena or hematochezia and/or increased frequency. 6. urine output not to go below 30 ml/hr over two hours. insufficiency noted. should improve with hydration and cystitis treatment. continue lasix oral. will get US KUB. pt allergic to contrast. 7. PT/OT for strengthing and ambulation/gait. 8. DVT prof with Lovenox 30 mg sc daily. 9. hold of on gi prophylaxis for now due to increase risk for diarrhea and aspiration. may use IV. 10. Discussion with pt and daughter at bedside regarding comorbidities, her current living will that we have on fill and that i reviewed and current medical status. She wishes to continue her prior wishes to be DNR/DNI and this will be updated in her medical record. Status is guarded. All questions from both patient and daughter discussed and answered. they wish to procedure with current management an future cares. daughter wishes to be contacted via her cellphone on file should any significant changes in status or treatment be made. pt agrees to this. daughter is POA in event pt cannot make decisions for herself. Total Time: 65 min >50% spent face to face with patient and daughter debriefing on above medical exam, labs, plan of care and addressing concerns. Anticipate stay minimum 4-5 days. Likely fdc antibiotics via PICC will be required as well resulting in need for swingbed at some point.
--- NOTE | 2016-11-27 08:47 | PCM.PN ---
- General Info Date of Service: 11/27/16 Subjective Update: Pleasant 86 y female from own home undergoing treatment for COPD exacerbation in the setting of CAP seeded by sepsis/bacteremia presumed to be from acute urinary tract infection which is also culture positive for what appears to be the same organism. Renal insufficiency and electrolyte disturbances have required fluids and replacement therapy. Hx of chf in the past, so watching status closely as she is up roughly 7# however this also takes into account her prior state of dehydration. She has been taking in quite of bit of her free water and sodium down. Making good urine. continues on her chronic furosemide. denies swelling or pain in legs. Her allergy list and renal function have complicated abx choices and dose, which pharmacy is onboard with appropriate dosing recommendation. until i have official culture report and susceptibilities, will continue current coverage. COPD managed with nebs and o2 intermittent. not getting too much up as her sputum is thicken due to years of smoking 1-2 packs a day for several years. she denies cravings at this time, but with the help of her daughter, agrees to trial the patch in hopes that she my leave the hospital as a 'non-smoker.' Her IDDM has been difficult to control and it was explained that we highs in infection. will continue to monitor. tailor appropriately. she will always have juice at her bedside if needed. qid accu checks. I have discussed that with documented bacteremia, depending on the organism, will need correction abx and will likely need a PICC line in the next few days. Functional Status: Reports: Tolerating Diet, Ambulating (Please see Subjective for pertinent review of symptoms. ), Urinating, Incentive Spirometry, Other ( tolerating nebs. informed of positive blood culutures with ID pending. she is feeling better today with the hydration. still weak but getting up to the bathroom with assist. no burning with urination. nebs getting her to cough of clearish brown phlemn a bit. no cp or pressure. no diarrhea at this time. no neck or jaw pain. no veronica, vision chgs, fevers overnight and sweats gone. feels she is breathing better. oxygen intermittently. normally only uses at night if needed. she is agreeable to trial of nicotine patch. restless light so had a dose of benadryl which helped a bit. no pain at iv sites. no rash or swelling. she is very guarded with her insulin dosing as she is very 'fragile' when it comes to her blood sugars. she agrees to the SSS and her regular dosing, but will let us know how much if any she will take extra. at this time we are continuing to give her therapeutic levemir as a substitute for lantus 1:1. No concerns for injection sites of either lovenox or insulin. weight is up as expected. denies increased sob or increase dyspnea with exertion. PT/OT ordered to get her up a bit. she sits in her chair for meals. her daughter visits with her several times a day and available for rounds every morning/afternoon. ) - Patient Data Vitals - most recent: Last Vital Signs Temp 97.7 F 11/27/16 04:30 Pulse 64 11/27/16 04:30 Resp 18 11/27/16 04:30 BP 98/33 L 11/27/16 04:30 Pulse Ox 95 11/27/16 04:30 Weight - most recent: 68.991 kg (+7#) I&O - last 24 hours: Intake & Output 11/26/16 11/27/16 IV Spreadsheet Document 11/26/16 00:00 LB (Rec: 11/26/16 02:31 LB [id number]) IV Spreadsheet IV Medications Normal Saline 250 ML @ 50 mls/hr IV ASDIRECTED [facility] Rx#:[id number] Intake, IV Amount 35 Levaquin in D5W 750 MG/150 ML 750 MG In Premix Bag 1 BAG @ 100 mls/hr IV ONETIME ONE Rx#:[id number] Intake, IV Amount 150 Frequency 11/26/16 02:28 LB (Rec: 11/26/16 02:28 LB [id number]) Date/Time Frequency 11/26/16 02:28 06,14,22 Document 11/26/16 14:00 EVIN (Rec: 11/26/16 16:42 EVIN [id number]) IV Spreadsheet IV Medications Flagyl 500 MG in NS 100 ML 500 MG In Premix Bag 1 BAG @ 100 mls/hr IV Q8H [facility] Rx#:[id number] Intake, IV Amount 100 IV Type PICC IV Site Left Arm Levaquin in D5W 750 MG/150 ML 750 MG In Premix Bag 1 BAG @ 100 mls/hr IV Q48H [facility] Rx#:[id number] Intake, IV Amount 150 IV Type Peripheral IV Site Left Arm Vancomycin 1,000 MG In Normal Saline 250 ML @ 167 mls/hr IV Q24H [facility] Rx#: [id number] Intake, IV Amount 250 IV Type PICC IV Site Left Arm Normal Saline 1,000 ML @ 100 mls/hr IV ASDIRECTED [facility] Rx#:[id number] Intake, IV Amount 250 IV Type Peripheral IV Site Left Arm Document 11/26/16 22:00 KM (Rec: 11/26/16 22:18 KM [id number]) IV Spreadsheet IV Medications Merrem 1 GM In Normal Saline 100 ML @ 200 mls/hr IV Q12H [facility] Rx#: [id number] IV Line Rate (ml/hr) 200 Intake, IV Amount 100 IV Type Peripheral IV Site Left Wrist Normal Saline 1,000 ML @ 100 mls/hr IV ASDIRECTED [facility] Rx#:[id number] IV Line Rate (ml/hr) 100 Intake, IV Amount 790 IV Type Peripheral IV Site Left Wrist Document 11/27/16 06:00 LB (Rec: 11/27/16 06:09 LB [id number]) IV Spreadsheet IV Medications Merrem 1 GM In Normal Saline 100 ML @ 200 mls/hr IV Q12H [facility] Rx#: [id number] Intake, IV Amount 100 Flagyl 500 MG in NS 100 ML 500 MG In Premix Bag 1 BAG @ 100 mls/hr IV Q8H [facility] Rx#:[id number] Intake, IV Amount 100 Levaquin in D5W 750 MG/150 ML 750 MG In Premix Bag 1 BAG @ 100 mls/hr IV Q48H [facility] Rx#:[id number] Intake, IV Amount 0 Vancomycin 1,000 MG In Normal Saline 250 ML @ 167 mls/hr IV Q24H [facility] Rx#: [id number] Intake, IV Amount 0 Normal Saline 1,000 ML @ 100 mls/hr IV ASDIRECTED [facility] Rx#:[id number] Intake, IV Amount 654 22:59 06:59 Intake Total 3440 884 Output Total 1025 0 Balance 2415 884 Lab Results last 24 hrs: Laboratory Results - last 24 hr 11/26/16 11/26/16 11/26/16 Range/Units 09:12 09:12 09:12 WBC 25.7 H (4.5-12.0) X10-3/uL RBC 3.41 (3.23-5.20) x10(6)uL Hgb 10.9 L (11.5-15.5) g/dL Hct 30.9 (30.0-51.3) % MCV 90.7 (80-96) fL MCH 31.9 (27.7-33.6) pg MCHC 35.2 (32.2-35.4) g/dL RDW 12.0 (11.5-15.5) % Plt Count 238 (125-369) X10(3)uL MPV (7.4-10.4) fL Add Manual Diff Neutrophils % (Manual) (46-82) % Band Neutrophils % (0-6) % Lymphocytes % (Manual) (13-37) % Monocytes % (Manual) (4-12) % Toxic Granulation (NOT SEEN) Sodium 130 L (135-145) mmol/L Potassium 5.1 (3.5-5.3) mmol/L Chloride 98 L (100-110) mmol/L Carbon Dioxide 25 (23-29) mmol/L BUN 36 H (8-23) mg/dL Creatinine 1.4 H (0.6-1.3) mg/dL Est Cr Clr Drug Dosing 23.86 mL/min Estimated GFR (MDRD) 36 L (>60) BUN/Creatinine Ratio 25.7 H (9-20) Glucose 419 H* D (80-116) mg/dL POC Glucose (80-116) mg/dL Hemoglobin A1c (4.0-6.0) % Calcium 8.2 L (8.6-10.2) mg/dL Total Bilirubin (0.1-1.3) mg/dL AST (5-27) IU/L ALT (14-26) IU/L Alkaline Phosphatase (56-112) IU/L Troponin I (0.02-0.06) NG/ML C-Reactive Protein (0.0-1.0) mg/dL Total Protein (6.0-8.0) g/dL Albumin (3.2-4.6) g/dL Globulin g/dL Albumin/Globulin Ratio TSH, Ultra Sensitive 0.62 (0.4-5.5) nlU/mL 11/26/16 11/26/16 11/26/16 Range/Units 09:12 09:12 09:12 WBC (4.5-12.0) X10-3/uL RBC (3.23-5.20) x10(6)uL Hgb (11.5-15.5) g/dL Hct (30.0-51.3) % MCV (80-96) fL MCH (27.7-33.6) pg MCHC (32.2-35.4) g/dL RDW (11.5-15.5) % Plt Count (125-369) X10(3)uL MPV (7.4-10.4) fL Add Manual Diff Neutrophils % (Manual) (46-82) % Band Neutrophils % (0-6) % Lymphocytes % (Manual) (13-37) % Monocytes % (Manual) (4-12) % Toxic Granulation (NOT SEEN) Sodium (135-145) mmol/L Potassium (3.5-5.3) mmol/L Chloride (100-110) mmol/L Carbon Dioxide (23-29) mmol/L BUN (8-23) mg/dL Creatinine (0.6-1.3) mg/dL Est Cr Clr Drug Dosing mL/min Estimated GFR (MDRD) (>60) BUN/Creatinine Ratio (9-20) Glucose (80-116) mg/dL POC Glucose (80-116) mg/dL Hemoglobin A1c 7.6 H (4.0-6.0) % Calcium (8.6-10.2) mg/dL Total Bilirubin (0.1-1.3) mg/dL AST (5-27) IU/L ALT (14-26) IU/L Alkaline Phosphatase (56-112) IU/L Troponin I < 0.01 L (0.02-0.06) NG/ML C-Reactive Protein 15.3 H* (0.0-1.0) mg/dL Total Protein (6.0-8.0) g/dL Albumin (3.2-4.6) g/dL Globulin g/dL Albumin/Globulin Ratio TSH, Ultra Sensitive (0.4-5.5) nlU/mL 11/26/16 11/26/16 11/26/16 Range/Units 11:39 15:22 17:09 WBC (4.5-12.0) X10-3/uL RBC (3.23-5.20) x10(6)uL Hgb (11.5-15.5) g/dL Hct (30.0-51.3) % MCV (80-96) fL MCH (27.7-33.6) pg MCHC (32.2-35.4) g/dL RDW (11.5-15.5) % Plt Count (125-369) X10(3)uL MPV (7.4-10.4) fL Add Manual Diff Neutrophils % (Manual) (46-82) % Band Neutrophils % (0-6) % Lymphocytes % (Manual) (13-37) % Monocytes % (Manual) (4-12) % Toxic Granulation (NOT SEEN) Sodium (135-145) mmol/L Potassium (3.5-5.3) mmol/L Chloride (100-110) mmol/L Carbon Dioxide (23-29) mmol/L BUN (8-23) mg/dL Creatinine (0.6-1.3) mg/dL Est Cr Clr Drug Dosing mL/min Estimated GFR (MDRD) (>60) BUN/Creatinine Ratio (9-20) Glucose (80-116) mg/dL POC Glucose 334 H 267 H 205 H (80-116) mg/dL Hemoglobin A1c (4.0-6.0) % Calcium (8.6-10.2) mg/dL Total Bilirubin (0.1-1.3) mg/dL AST (5-27) IU/L ALT (14-26) IU/L Alkaline Phosphatase (56-112) IU/L Troponin I (0.02-0.06) NG/ML C-Reactive Protein (0.0-1.0) mg/dL Total Protein (6.0-8.0) g/dL Albumin (3.2-4.6) g/dL Globulin g/dL Albumin/Globulin Ratio TSH, Ultra Sensitive (0.4-5.5) nlU/mL 11/26/16 11/27/16 11/27/16 Range/Units 20:19 06:28 06:28 WBC 16.6 H (4.5-12.0) X10-3/uL RBC 3.19 L (3.23-5.20) x10(6)uL Hgb 9.7 L (11.5-15.5) g/dL Hct 28.9 L (30.0-51.3) % MCV 90.6 (80-96) fL MCH 30.4 (27.7-33.6) pg MCHC 33.5 (32.2-35.4) g/dL RDW 12.0 (11.5-15.5) % Plt Count 215 (125-369) X10(3)uL MPV 8.8 (7.4-10.4) fL Add Manual Diff Yes Neutrophils % (Manual) 84 H (46-82) % Band Neutrophils % 1 (0-6) % Lymphocytes % (Manual) 11 L (13-37) % Monocytes % (Manual) 4 (4-12) % Toxic Granulation Few H (NOT SEEN) Sodium 128 L (135-145) mmol/L Potassium 4.1 D (3.5-5.3) mmol/L Chloride 100 (100-110) mmol/L Carbon Dioxide 22 L (23-29) mmol/L BUN 36 H (8-23) mg/dL Creatinine 1.4 H (0.6-1.3) mg/dL Est Cr Clr Drug Dosing 23.86 mL/min Estimated GFR (MDRD) 36 L (>60) BUN/Creatinine Ratio 25.7 H (9-20) Glucose 123 H D (80-116) mg/dL POC Glucose 290 H D (80-116) mg/dL Hemoglobin A1c (4.0-6.0) % Calcium 7.7 L (8.6-10.2) mg/dL Total Bilirubin 0.7 (0.1-1.3) mg/dL AST 32 H D (5-27) IU/L ALT 17 D (14-26) IU/L Alkaline Phosphatase 70 (56-112) IU/L Troponin I (0.02-0.06) NG/ML C-Reactive Protein (0.0-1.0) mg/dL Total Protein 5.8 L (6.0-8.0) g/dL Albumin 2.9 L (3.2-4.6) g/dL Globulin 2.9 g/dL Albumin/Globulin Ratio 1.0 TSH, Ultra Sensitive (0.4-5.5) nlU/mL 11/27/16 Range/Units 06:51 WBC (4.5-12.0) X10-3/uL RBC (3.23-5.20) x10(6)uL Hgb (11.5-15.5) g/dL Hct (30.0-51.3) % MCV (80-96) fL MCH (27.7-33.6) pg MCHC (32.2-35.4) g/dL RDW (11.5-15.5) % Plt Count (125-369) X10(3)uL MPV (7.4-10.4) fL Add Manual Diff Neutrophils % (Manual) (46-82) % Band Neutrophils % (0-6) % Lymphocytes % (Manual) (13-37) % Monocytes % (Manual) (4-12) % Toxic Granulation (NOT SEEN) Sodium (135-145) mmol/L Potassium (3.5-5.3) mmol/L Chloride (100-110) mmol/L Carbon Dioxide (23-29) mmol/L BUN (8-23) mg/dL Creatinine (0.6-1.3) mg/dL Est Cr Clr Drug Dosing mL/min Estimated GFR (MDRD) (>60) BUN/Creatinine Ratio (9-20) Glucose (80-116) mg/dL POC Glucose 114 D (80-116) mg/dL Hemoglobin A1c (4.0-6.0) % Calcium (8.6-10.2) mg/dL Total Bilirubin (0.1-1.3) mg/dL AST (5-27) IU/L ALT (14-26) IU/L Alkaline Phosphatase (56-112) IU/L Troponin I (0.02-0.06) NG/ML C-Reactive Protein (0.0-1.0) mg/dL Total Protein (6.0-8.0) g/dL Albumin (3.2-4.6) g/dL Globulin g/dL Albumin/Globulin Ratio TSH, Ultra Sensitive (0.4-5.5) nlU/mL Mil Results last 24 hrs: Microbiology 11/25/16 20:45 Blood - Venous - Lab Draw Aerobic Blood Culture - Final ( positive) 11/25/16 20:45 Blood - Venous - Lab Draw Anaerobic Blood Culture - Final ( positive) 11/25/16 20:40 Blood - Venous Aerobic Blood Culture - Preliminary Gram Negative Rods 11/25/16 20:40 Blood - Venous Anaerobic Blood Culture - Final 11/25/16 21:00 Urine, Voided Urine Culture - Preliminary Gram Negative Rods ID/pending: all cultures appear to be same organism on preliminary. Med Orders - Current: Current Medications Acetaminophen (Tylenol) 650 mg PO Q4H PRN PRN Reason: Pain (Mild 1-3)/fever Last Admin: 11/25/16 22:18 Dose: 650 mg Albuterol/Ipratropium (Duoneb 3.0-0.5 Mg/3 Ml) 3 ml NEB Q8H [facility] Last Admin: 11/27/16 01:51 Dose: 3 ml Amlodipine Besylate (Norvasc) 10 mg PO DAILY [facility] Last Admin: 11/26/16 10:31 Dose: 10 mg Emollient Ointment (Vanicream) 0 gm TOP DAILY [facility] Last Admin: 11/26/16 13:16 Dose: 1 applic Enoxaparin Sodium (Lovenox) 30 mg SUBCUT Q24H [facility] Furosemide (Lasix) 20 mg PO DAILY [facility] Last Admin: 11/26/16 10:30 Dose: 20 mg Sodium Chloride (Normal Saline) 250 mls @ 50 mls/hr IV ASDIRECTED [facility] Last Admin: 11/25/16 22:06 Dose: 50 mls/hr Sodium Chloride (Normal Saline) 1,000 mls @ 100 mls/hr IV ASDIRECTED [facility] Last Admin: 11/27/16 00:42 Dose: 100 mls/hr Vancomycin HCl 1,000 mg/ (Sodium Chloride) 250 mls @ 167 mls/hr IV Q24H [facility] Last Admin: 11/26/16 13:11 Dose: 167 mls/hr Levofloxacin/Dextrose 750 mg/ (Premix) 150 mls @ 100 mls/hr IV Q48H [facility] Metronidazole 500 mg/ Premix 100 mls @ 100 mls/hr IV Q8H [facility] Last Admin: 11/27/16 05:29 Dose: 100 mls/hr Meropenem 1 gm/ Sodium (Chloride) 100 mls @ 200 mls/hr IV Q12H [facility] Last Admin: 11/27/16 03:33 Dose: 200 mls/hr Ibuprofen (Motrin) 600 mg PO Q6H PRN PRN Reason: Pain (mild 1-3) Last Admin: 11/27/16 00:10 Dose: 600 mg Insulin Aspart (Novolog) 5 unit SUBCUT WITHMEALSANDBED [facility] Last Admin: 11/26/16 20:22 Dose: 5 units Insulin Aspart (Novolog) 0 unit SUBCUT TIDMEALS PRN; Protocol PRN Reason: hypergycemia Last Admin: 11/26/16 09:19 Dose: 1 unit Insulin Detemir (Levemir) 28 unit SUBCUT DAILY [facility] Last Admin: 11/26/16 10:42 Dose: 28 units Levothyroxine Sodium (Levothyroxine) 75 mcg PO ACBREAKFAST [facility] Last Admin: 11/27/16 06:30 Dose: 75 mcg Losartan Potassium (Cozaar) 100 mg PO DAILY [facility] Last Admin: 11/26/16 10:32 Dose: 100 mg Metoprolol Succinate (Toprol Xl) 50 mg PO DAILY [facility] Last Admin: 11/26/16 10:30 Dose: 50 mg Multivitamins/Minerals/Vitamin C (Tab-A-Marco Antonio) 1 tab PO DAILY [facility] Last Admin: 11/26/16 10:31 Dose: 1 tab Nicotine (Habitrol) 14 mg TRDERM DAILY [facility] Last Admin: 11/26/16 13:06 Dose: 14 mg Ondansetron HCl (Zofran) 4 mg IV Q4H PRN PRN Reason: Nausea/Vomiting Last Admin: 11/25/16 21:50 Dose: 4 mg Potassium Chloride (Klor-Con 10) 10 meq PO BID [facility] Last Admin: 11/26/16 20:12 Dose: 10 meq Sodium Chloride (Saline Flush) 10 ml FLUSH ASDIRECTED PRN PRN Reason: Keep Vein Open Vancomycin HCl (Pharmacy To Dose - Vancomycin) 1 dose .XX ASDIRECTED [facility] Discontinued Medications Diphenhydramine HCl (Benadryl) 25 mg IVPUSH ONETIME ONE Stop: 11/25/16 22:07 Last Admin: 11/25/16 22:20 Dose: 25 mg Enoxaparin Sodium (Lovenox) 40 mg SUBCUT DAILY [facility] Last Admin: 11/26/16 10:30 Dose: 40 mg Levofloxacin/Dextrose 750 mg/ (Premix) 150 mls @ 100 mls/hr IV ONETIME ONE Stop: 11/25/16 22:26 Last Admin: 11/25/16 22:00 Dose: 100 mls/hr Insulin Detemir (Levemir) 28 unit SUBCUT DAILY [facility] Insulin Human Regular (Humulin R) 0 unit SUBCUT TID [facility] PRN Reason: Protocol Insulin Human Regular (Humulin R) 0 unit SUBCUT QID [facility] PRN Reason: Protocol - Exam Quality Assessment: No: skin breakdown General: alert, oriented, cooperative HEENT: Mucous membr. moist/pink Neck: supple, no JVD Lungs: Normal Respiratory Effort, Decreased Breath Sounds, Crackles, Rhonchi Cardiovascular: Regular Rate, Regular Rhythm, No Murmurs (not audible today.) GI/Abdominal Exam: Normal Bowel Sounds, Soft, Non-Tender, Distended Back Exam: Normal Inspection. No: CVA Tenderness (R), CVA Tenderness (L) Extremities: Normal Inspection, Non-Tender, Normal Capillary Refill, Pedal Edema (minimal bilateral). No: Leg Pain Skin: warm, dry, intact Neurological: normal speech, normal tone, strength equal bilateral, cranial nerves intact Psy/Mental Status: normal affect, normal mood. No: withdrawal symptoms - Problem List & Annotations (1) COPD with acute lower respiratory infection SNOMED Code(s): 819943464 Code(s): J44.0 - CHRONIC OBSTRUCTIVE PULMON DISEASE W ACUTE LOWER RESP INFCT Status: Acute Priority: High (2) Acute hemorrhagic cystitis SNOMED Code(s): 86468943 Code(s): N30.01 - ACUTE CYSTITIS WITH HEMATURIA Status: Acute Priority: High (3) Blood bacterial culture positive SNOMED Code(s): 254472315 Code(s): R78.81 - BACTEREMIA Status: Acute Priority: High (4) Sepsis SNOMED Code(s): 08109418 Code(s): A41.9 - SEPSIS, UNSPECIFIED ORGANISM Status: Acute Priority: High Qualifiers: Sepsis type: sepsis due to unspecified organism Qualified Code(s): A41.9 - Sepsis, unspecified organism (5) Renal insufficiency SNOMED Code(s): 294840633, 049299926 Code(s): N28.9 - DISORDER OF KIDNEY AND URETER, UNSPECIFIED Status: Resolved Priority: High (6) Hyponatremia SNOMED Code(s): 79588553 Code(s): E87.1 - HYPO-OSMOLALITY AND HYPONATREMIA Status: Acute (7) Elevated white blood cell count SNOMED Code(s): 271564508, 570133948 Code(s): D72.829 - ELEVATED WHITE BLOOD CELL COUNT, UNSPECIFIED Status: Resolved Priority: High Qualifiers: Leukocytosis type: unspecified Qualified Code(s): D72.829 - Elevated white blood cell count, unspecified (8) Dehydration SNOMED Code(s): 64615916 Code(s): E86.0 - DEHYDRATION Status: Resolved Priority: High (9) Hyperglycemia due to type 2 diabetes mellitus SNOMED Code(s): 249686820677008, 356356925166223 Code(s): E11.65 - TYPE 2 DIABETES MELLITUS WITH HYPERGLYCEMIA Status: Acute Priority: High Qualifiers: Diabetes mellitus nursing home insulin use: with automobile mechanic assistant use Qualified Code( s): E11.65 - Type 2 diabetes mellitus with hyperglycemia; Z79.4 - production aide ( current) use of insulin (10) DNI (do not intubate) SNOMED Code(s): 045831704 Code(s): Z78.9 - OTHER SPECIFIED HEALTH STATUS Status: Chronic (11) DNR (do not resuscitate) Status: Chronic (12) CHF (congestive heart failure) SNOMED Code(s): 20668456 Code(s): I50.9 - HEART FAILURE, UNSPECIFIED Status: Chronic Qualifiers: Congestive heart failure chronicity: chronic Annotation/Comment:: mild diastolic; EF>60%; per echo 11/29/2016 (13) Hypothyroidism SNOMED Code(s): 67675936 Code(s): E03.9 - HYPOTHYROIDISM, UNSPECIFIED Status: Chronic Qualifiers: Hypothyroidism type: due to acquired atrophy of thyroid Qualified Code(s): E03.4 - Atrophy of thyroid (acquired) (14) Decreased mobility and endurance SNOMED Code(s): 2672199 Code(s): Z74.09 - OTHER REDUCED MOBILITY Status: Acute Priority: High (15) Mobilizes using aids SNOMED Code(s): 815723633 Code(s): Z99.89 - DEPENDENCE ON OTHER ENABLING MACHINES AND DEVICES Status : Chronic (16) Palliative care status SNOMED Code(s): 694379611 Code(s): Z51.5 - ENCOUNTER FOR PALLIATIVE CARE Status: Acute Priority: High (17) HTN, goal below 140/90 SNOMED Code(s): 33401580 Code(s): I10 - ESSENTIAL (PRIMARY) HYPERTENSION Status: Chronic (18) Tobacco dependence SNOMED Code(s): 12142512 Code(s): F17.200 - NICOTINE DEPENDENCE, UNSPECIFIED, UNCOMPLICATED Status: Chronic (19) IDDM (insulin dependent diabetes mellitus) SNOMED Code(s): 96774601 Code(s): E11.9 - TYPE 2 DIABETES MELLITUS WITHOUT COMPLICATIONS; Z79.4 - RIGHT OF WAY CUTTER (CURRENT) USE OF INSULIN Status: Chronic Priority: High - Problem List Review Problem List Initiated/Reviewed/Updated: Yes - My Orders Last 24 Hours: My Active Orders 11/26/16 08:28 Insulin Aspart [NovoLOG] See Protocol SUBCUT TIDMEALS PRN 11/26/16 08:30 Insulin Aspart [NovoLOG] 5 unit SUBCUT WITHMEALSANDBED Levothyroxine 75 mcg PO ACBREAKFAST 11/26/16 08:56 Daily Weight [Height and Weight] [RC] 06 Diabetes Education [RC] 08 RT Incentive Spirometry [RC] Q2HWA OT Evaluation and Treatment [CONS] Routine PT Evaluation and Treatment [CONS] Routine 11/26/16 09:00 Furosemide [Lasix] 20 mg PO DAILY Losartan [Cozaar] 100 mg PO DAILY Metoprolol Succinate [Toprol XL] 50 mg PO DAILY Multivitamins [Tab-A-Marco Antonio] 1 tab PO DAILY Potassium Chloride [Klor-Con 10] 10 meq PO BID amLODIPine [Norvasc] 10 mg PO DAILY 11/26/16 09:08 Code Status [Resuscitation Status] Routine 11/26/16 09:14 Intake and Output Strict [RC] 02,06,10,14,18,22 11/26/16 09:15 Sodium Chloride 0.9% [Normal Saline] 1,000 ml IV ASDIRECTED 11/26/16 09:26 RT Aerosol Therapy [RC] ASDIRECTED 11/26/16 09:30 Albuterol/Ipratropium [DuoNeb 3.0-0.5 MG/3 ML] 3 ml NEB Q8H Insulin Detemir [Levemir] 28 unit SUBCUT DAILY 11/26/16 10:15 Emollient [Vanicream] See Dose Instructions TOP DAILY Nicotine [Habitrol] 14 mg TRDERM DAILY 11/26/16 10:37 Guaiac [OCCULT BLOOD DIAGNOSTIC] [OP] Routine 11/26/16 10:38 Head of Bed Elevation [RC] ASDIRECTED Notify Provider Intake and Out [RC] ASDIRECTED Notify Provider [RC] PRN 11/26/16 10:40 Smoking Cessation Education [RC] Click To Edit 11/26/16 10:45 Vancomycin Pharmacy to Dose [Pharmacy to Dose - Vancomycin] 1 dose .XX ASDIRECTED 11/26/16 11:00 Vancomycin 1,000 mg Sodium Chloride 0.9% [Normal Saline] 250 ml IV Q24H 11/26/16 14:00 metroNIDAZOLE/Normal Saline [Flagyl 500 MG in NS 100 ML] 500 mg Premix Bag 1 bag IV Q8H 11/26/16 16:00 Meropenem [Merrem] 1 gm Sodium Chloride 0.9% [Normal Saline] 100 ml IV Q12H 11/27/16 10:30 Enoxaparin [Lovenox] 30 mg SUBCUT Q24H 11/27/16 21:00 Levofloxacin/Dextrose 5%-Water [Levaquin in D5W 750 MG/150 ML] 750 mg Premix Bag 1 bag IV Q48H 11/28/16 06:00 CXR [Chest 2V] [CR] Routine 11/29/16 10:30 CREATININE W/GFR [CHEM] Routine - Assessment Assessment:: Please see above assessments and subjective comments. - Plan Plan:: Will continue current medication dosing, vital monitoring, get stool sample for occult and cdiff and monitor fluid status closely. will likely need to restrict free water, continue NS and watch daily rates and resp status. not giving steroids due to bacteremia and diabetes at this time. appetite improving. still weak, but pt/ot on board. numerous commodities and complications that may arise , but for now, she is stablizing and will continue remain med/surg. Anticipate stay additional 3-4 days inpt and then transfer to swing bed for strengthening and continued abx therapy. imaging to follow for cardiac, renal and repeat cxr as mentioned. all questions and above discussion with exam and debriefing in presence of pt and her daughter and they agree to the above assessments and recommended coarse of care.
[2016-11-27] MEDS: Multivitamin Tab PO SCH (09:17)
[2016-11-27] MEDS: Losartan 100 MG Tab PO SCH (09:17)
[2016-11-27] MEDS: Potassium Chloride 10 MEQ Tab.ER PO SCH ×2 (09:18→20:48)
[2016-11-27] MEDS: Metoprolol Succinate 50 MG Tab.ER PO SCH (09:18)
[2016-11-27] MEDS: Furosemide 20 MG Tab PO SCH (09:19)
[2016-11-27] MEDS: Insulin Aspart 100 Units/ML 3 ML Pen SUBCUT SCH ×4 (09:19→21:07)
[2016-11-27] MEDS: Insulin Detemir 100 Units/ML 3 ML Pen SUBCUT SCH (09:21)
[2016-11-27] MEDS: Emollient 454 GM Jar TOP SCH (09:22)
[2016-11-27] MEDS: Enoxaparin 30 MG/0.3 ML Syringe SUBCUT SCH (11:35)
[2016-11-27] MEDS: Nicotine 14 MG/24 Hr Patch TRDERM SCH (11:35)
[2016-11-27] MEDS ORDERED: metroNIDAZOLE/Normal Saline 100 ML ONE (16:56)
[2016-11-27] MEDS: Levofloxacin/Dextrose 5%-Water 750 MG in Premix Bag 1 BAG IV SCH (20:49)
[2016-11-28] MEDS ORDERED: metroNIDAZOLE/Normal Saline 100 ML ONE (00:32)
[2016-11-28] MEDS: Albuterol/Ipratropium 3.0-0.5 MG/3 ML Neb Soln NEB SCH ×3 (00:39→18:32)
[2016-11-28] MEDS: metroNIDAZOLE/Normal Saline 500 MG in Premix Bag 1 BAG IV SCH (00:41)
[2016-11-28] MEDS: Acetaminophen 325 MG Tab PO PRN (02:24)
[2016-11-28] MEDS: Meropenem 1 GM in Sodium Chloride 0.9% 100 ML IV SCH (04:13)
[2016-11-28] MEDS: Sodium Chloride 0.9% 1,000 ML IV SCH (06:22)
[2016-11-28] MEDS: Levothyroxine 75 MCG Tab PO SCH (06:29)
--- NOTE | 2016-11-28 08:18 | PCM.PN ---
- General Info Subjective Update: Date of Service: 11/28/16 Subjective Update: Pleasant 86 y female from own home undergoing treatment for COPD exacerbation in the setting of CAP seeded by sepsis/bacteremia presumed to be from acute urinary tract infection which is also culture positive for ecoli. Renal insufficiency and electrolyte disturbances have required fluids and replacement therapy which are improving. Hx of chf in the past,-echo pending. she has been up roughly 11# however this also takes into account her prior state of dehydration. She has been started on free water restrictions. Making good urine. continues on her chronic furosemide with IV furosemide started as well. some swelling but no pain in legs. Her allergy list and renal function have complicated abx choices and dose, which pharmacy is onboard with appropriate dosing recommendation. until i have official susceptibilities, will continue current ecoli coverage. COPD managed with nebs and o2 intermittent. her sputum is thicken due to years of smoking 1-2 packs a day for several years. started on mucomyst. On nicotine patch at this time. Her IDDM has been difficult to control will continue to monitor. tailor appropriately. she will always have juice at her bedside if needed. qid accu checks. With documented bacteremia, will need usp abx and PICC line to be placed. Functional Status: Reports: Tolerating Diet, Ambulating, Urinating, Incentive Spirometry, Other (tolerating nebs. she is feeling better today. still weak getting up to the bathroom with assist. no burning with urination. no cp or pressure. no diarrhea at this time. no neck or jaw pain. no veronica, vision chgs, or fevers overnight. restlessness as night improved. no pain at iv sites. no rash or swelling. she is still very guarded with her insulin dosing as she is very ' fragile' when it comes to her blood sugars. she continues on SSS and her regular dosing, but will let us know how much if any she will take extra. No concerns for injection sites of either Lovenox or insulin. weight is up as expected. denies increased sob or increase dyspnea with exertion. PT/OT on board. she sits in her chair for meals. her daughter visits with her several times a day and available for rounds every morning/afternoon.) - Patient Data Vitals - Most Recent: Last Vital Signs Temp 97.8 F 11/28/16 03:41 Pulse 72 11/28/16 03:41 Resp 18 11/28/16 03:41 BP 126/62 11/28/16 03:41 Pulse Ox 97 11/28/16 03:41 Weight - most recent: 70.931 kg (+11# total) I&O - Last 24 Hours: Intake & Output 11/27/16 11/28/16 11/28/16 22:59 06:59 14:59 Intake Total 1482 1521 Output Total 1150 950 Balance 332 571 Lab Results Last 24 Hours: Laboratory Results - last 24 hr 11/27/16 11/27/16 11/27/16 Range/Units 06:51 11:44 17:46 WBC (4.5-12.0) X10-3/uL RBC (3.23-5.20) x10(6)uL Hgb (11.5-15.5) g/dL Hct (30.0-51.3) % MCV (80-96) fL MCH (27.7-33.6) pg MCHC (32.2-35.4) g/dL RDW (11.5-15.5) % Plt Count (125-369) X10(3)uL MPV (7.4-10.4) fL Add Manual Diff Neutrophils % (Manual) (46-82) % Band Neutrophils % (0-6) % Lymphocytes % (Manual) (13-37) % Monocytes % (Manual) (4-12) % Toxic Granulation (NOT SEEN) Sodium (135-145) mmol/L Potassium (3.5-5.3) mmol/L Chloride (100-110) mmol/L Carbon Dioxide (23-29) mmol/L BUN (8-23) mg/dL Creatinine (0.6-1.3) mg/dL Est Cr Clr Drug Dosing mL/min Estimated GFR (MDRD) (>60) BUN/Creatinine Ratio (9-20) Glucose (80-116) mg/dL POC Glucose 114 D 181 H 117 H (80-116) mg/dL Lactic Acid (0.5-2.2) mmol/L Calcium (8.6-10.2) mg/dL Total Bilirubin (0.1-1.3) mg/dL AST (5-27) IU/L ALT (14-26) IU/L Alkaline Phosphatase (56-112) IU/L C-Reactive Protein (0.0-1.0) mg/dL B-Natriuretic Peptide (0-100) pg/mL Total Protein (6.0-8.0) g/dL Albumin (3.2-4.6) g/dL Globulin g/dL Albumin/Globulin Ratio 11/27/16 11/28/16 11/28/16 Range/Units 20:44 06:00 06:30 WBC 14.3 H (4.5-12.0) X10-3/uL RBC 3.45 (3.23-5.20) x10(6)uL Hgb 10.6 L (11.5-15.5) g/dL Hct 31.3 (30.0-51.3) % MCV 90.7 (80-96) fL MCH 30.7 (27.7-33.6) pg MCHC 33.9 (32.2-35.4) g/dL RDW 12.0 (11.5-15.5) % Plt Count 233 (125-369) X10(3)uL MPV 9.1 (7.4-10.4) fL Add Manual Diff Yes Neutrophils % (Manual) 81 (46-82) % Band Neutrophils % 1 (0-6) % Lymphocytes % (Manual) 12 L (13-37) % Monocytes % (Manual) 6 (4-12) % Toxic Granulation Occasional (NOT SEEN) Sodium (135-145) mmol/L Potassium (3.5-5.3) mmol/L Chloride (100-110) mmol/L Carbon Dioxide (23-29) mmol/L BUN (8-23) mg/dL Creatinine (0.6-1.3) mg/dL Est Cr Clr Drug Dosing mL/min Estimated GFR (MDRD) (>60) BUN/Creatinine Ratio (9-20) Glucose (80-116) mg/dL POC Glucose 103 79 L (80-116) mg/dL Lactic Acid (0.5-2.2) mmol/L Calcium (8.6-10.2) mg/dL Total Bilirubin (0.1-1.3) mg/dL AST (5-27) IU/L ALT (14-26) IU/L Alkaline Phosphatase (56-112) IU/L C-Reactive Protein (0.0-1.0) mg/dL B-Natriuretic Peptide (0-100) pg/mL Total Protein (6.0-8.0) g/dL Albumin (3.2-4.6) g/dL Globulin g/dL Albumin/Globulin Ratio 11/28/16 11/28/16 11/28/16 Range/Units 06:30 06:30 06:30 WBC (4.5-12.0) X10-3/uL RBC (3.23-5.20) x10(6)uL Hgb (11.5-15.5) g/dL Hct (30.0-51.3) % MCV (80-96) fL MCH (27.7-33.6) pg MCHC (32.2-35.4) g/dL RDW (11.5-15.5) % Plt Count (125-369) X10(3)uL MPV (7.4-10.4) fL Add Manual Diff Neutrophils % (Manual) (46-82) % Band Neutrophils % (0-6) % Lymphocytes % (Manual) (13-37) % Monocytes % (Manual) (4-12) % Toxic Granulation (NOT SEEN) Sodium 130 L (135-145) mmol/L Potassium 3.8 (3.5-5.3) mmol/L Chloride 100 (100-110) mmol/L Carbon Dioxide 21 L (23-29) mmol/L BUN 21 D (8-23) mg/dL Creatinine 1.0 (0.6-1.3) mg/dL Est Cr Clr Drug Dosing 33.41 mL/min Estimated GFR (MDRD) 53 L (>60) BUN/Creatinine Ratio 21.0 H (9-20) Glucose 100 (80-116) mg/dL POC Glucose (80-116) mg/dL Lactic Acid 0.9 (0.5-2.2) mmol/L Calcium 7.9 L (8.6-10.2) mg/dL Total Bilirubin 0.2 (0.1-1.3) mg/dL AST 37 H D (5-27) IU/L ALT 18 (14-26) IU/L Alkaline Phosphatase 76 (56-112) IU/L C-Reactive Protein 9.0 H* (0.0-1.0) mg/dL B-Natriuretic Peptide 444 H (0-100) pg/mL Total Protein 6.4 (6.0-8.0) g/dL Albumin 3.5 (3.2-4.6) g/dL Globulin 2.9 g/dL Albumin/Globulin Ratio 1.2 Mil Results Last 24 Hours: Microbiology 11/25/16 20:40 Blood - Venous Aerobic Blood Culture - Final Escherichia Coli 11/25/16 20:40 Blood - Venous Anaerobic Blood Culture - Final 11/25/16 21:00 Urine, Voided Urine Culture - Final Escherichia Coli 11/25/16 20:45 Blood - Venous - Lab Draw Aerobic Blood Culture - Final 11/25/16 20:45 Blood - Venous - Lab Draw Anaerobic Blood Culture - Final Med Orders - Current: Current Medications Acetaminophen (Tylenol) 650 mg PO Q4H PRN PRN Reason: Pain (Mild 1-3)/fever Last Admin: 11/28/16 02:24 Dose: 650 mg Albuterol/Ipratropium (Duoneb 3.0-0.5 Mg/3 Ml) 3 ml NEB Q8H [facility] Last Admin: 11/28/16 00:39 Dose: 3 ml Amlodipine Besylate (Norvasc) 10 mg PO DAILY [facility] Last Admin: 11/26/16 10:31 Dose: 10 mg Emollient Ointment (Vanicream) 0 gm TOP DAILY [facility] Last Admin: 11/27/16 09:22 Dose: 1 applic Enoxaparin Sodium (Lovenox) 30 mg SUBCUT Q24H [facility] Last Admin: 11/27/16 11:35 Dose: 30 mg Furosemide (Lasix) 20 mg PO DAILY [facility] Last Admin: 11/27/16 09:19 Dose: 20 mg Sodium Chloride (Normal Saline) 250 mls @ 50 mls/hr IV ASDIRECTED [facility] Last Admin: 11/25/16 22:06 Dose: 50 mls/hr Sodium Chloride (Normal Saline) 1,000 mls @ 100 mls/hr IV ASDIRECTED [facility] Last Admin: 11/28/16 06:22 Dose: 100 mls/hr Levofloxacin/Dextrose 750 mg/ (Premix) 150 mls @ 100 mls/hr IV Q48H [facility] Last Admin: 11/27/16 20:49 Dose: 100 mls/hr Ibuprofen (Motrin) 600 mg PO Q6H PRN PRN Reason: Pain (mild 1-3) Last Admin: 11/27/16 21:48 Dose: 600 mg Insulin Aspart (Novolog) 5 unit SUBCUT WITHMEALSANDBED [facility] Last Admin: 11/27/16 21:07 Dose: Not Given Insulin Aspart (Novolog) 0 unit SUBCUT TIDMEALS PRN; Protocol PRN Reason: hypergycemia Last Admin: 11/26/16 09:19 Dose: 1 unit Insulin Detemir (Levemir) 28 unit SUBCUT DAILY [facility] Last Admin: 11/27/16 09:21 Dose: 28 units Levothyroxine Sodium (Levothyroxine) 75 mcg PO ACBREAKFAST [facility] Last Admin: 11/28/16 06:29 Dose: 75 mcg Losartan Potassium (Cozaar) 100 mg PO DAILY [facility] Last Admin: 11/27/16 09:17 Dose: 100 mg Metoprolol Succinate (Toprol Xl) 50 mg PO DAILY [facility] Last Admin: 11/27/16 09:18 Dose: 50 mg Multivitamins/Minerals/Vitamin C (Tab-A-[place]) 1 tab PO DAILY [facility] Last Admin: 11/27/16 09:17 Dose: 1 tab Nicotine (Habitrol) 14 mg TRDERM DAILY [facility] Last Admin: 11/27/16 11:35 Dose: 14 mg Ondansetron HCl (Zofran) 4 mg IV Q4H PRN PRN Reason: Nausea/Vomiting Last Admin: 11/25/16 21:50 Dose: 4 mg Potassium Chloride (Klor-Con 10) 10 meq PO BID [facility] Last Admin: 11/27/16 20:48 Dose: 10 meq Sodium Chloride (Saline Flush) 10 ml FLUSH ASDIRECTED PRN PRN Reason: Keep Vein Open Vancomycin HCl (Pharmacy To Dose - Vancomycin) 1 dose .XX ASDIRECTED [facility] Discontinued Medications Diphenhydramine HCl (Benadryl) 25 mg IVPUSH ONETIME ONE Stop: 11/25/16 22:07 Last Admin: 11/25/16 22:20 Dose: 25 mg Enoxaparin Sodium (Lovenox) 40 mg SUBCUT DAILY [facility] Last Admin: 11/26/16 10:30 Dose: 40 mg Levofloxacin/Dextrose 750 mg/ (Premix) 150 mls @ 100 mls/hr IV ONETIME ONE Stop: 11/25/16 22:26 Last Admin: 11/25/16 22:00 Dose: 100 mls/hr Vancomycin HCl 1,000 mg/ (Sodium Chloride) 250 mls @ 167 mls/hr IV Q24H [facility] Last Admin: 11/27/16 11:35 Dose: 167 mls/hr Metronidazole 500 mg/ Premix 100 mls @ 100 mls/hr IV Q8H [facility] Last Infusion: 11/27/16 06:29 Dose: Infused Meropenem 1 gm/ Sodium (Chloride) 100 mls @ 200 mls/hr IV Q12H [facility] Last Admin: 11/28/16 04:13 Dose: 200 mls/hr Metronidazole 500 mg/ Premix 100 mls @ 100 mls/hr IV Q8H [facility] Last Admin: 11/28/16 00:41 Dose: 100 mls/hr Metronidazole (Flagyl 500 Mg In Ns 100 Ml) Confirm Administered Dose 100 mls @ as directed .ROUTE .STK-MED ONE Stop: 11/27/16 16:57 Last Admin: 11/27/16 17:18 Dose: Not Given Metronidazole (Flagyl 500 Mg In Ns 100 Ml) Confirm Administered Dose 100 mls @ as directed .ROUTE .STK-MED ONE Stop: 11/28/16 00:33 Last Admin: 11/28/16 00:43 Dose: Not Given Insulin Detemir (Levemir) 28 unit SUBCUT DAILY [facility] Insulin Human Regular (Humulin R) 0 unit SUBCUT TID [facility] PRN Reason: Protocol Insulin Human Regular (Humulin R) 0 unit SUBCUT QID [facility] PRN Reason: Protocol - Exam Physical Findings Comments:: Quality Assessment: No: skin breakdown General: alert, oriented, cooperative HEENT: Mucous membr. moist/pink Neck: supple, no JVD Lungs: Normal Respiratory Effort, Decreased Breath Sounds, Crackles, Rhonchi improving Cardiovascular: Regular Rate, Regular Rhythm, No Murmurs (not audible today.) GI/Abdominal Exam: Normal Bowel Sounds, Soft, Non-Tender, non-distended Back Exam: Normal Inspection. No: CVA Tenderness (R), CVA Tenderness (L) Extremities: Normal Inspection, Non-Tender, Normal Capillary Refill, Pedal Edema (minimal bilateral). No: Leg Pain Skin: warm, dry, intact Neurological: normal speech, normal tone, strength equal bilateral, cranial nerves grossly intact Psy/Mental Status: normal affect, normal mood. No: withdrawal symptoms - Problem List & Annotations (1) COPD with acute lower respiratory infection SNOMED Code(s): 854678460 Code(s): J44.0 - CHRONIC OBSTRUCTIVE PULMON DISEASE W ACUTE LOWER RESP INFCT Status: Acute Priority: High (2) Acute hemorrhagic cystitis SNOMED Code(s): 66910696 Code(s): N30.01 - ACUTE CYSTITIS WITH HEMATURIA Status: Acute Priority: High (3) Blood bacterial culture positive SNOMED Code(s): 554017600 Code(s): R78.81 - BACTEREMIA Status: Acute Priority: High (4) Sepsis SNOMED Code(s): 96558220 Code(s): A41.9 - SEPSIS, UNSPECIFIED ORGANISM Status: Acute Priority: High Qualifiers: Sepsis type: sepsis due to unspecified organism Qualified Code(s): A41.9 - Sepsis, unspecified organism (5) Renal insufficiency SNOMED Code(s): 200566501, 356982677 Code(s): N28.9 - DISORDER OF KIDNEY AND URETER, UNSPECIFIED Status: Resolved Priority: High (6) Elevated white blood cell count SNOMED Code(s): 827929454, 611172192 Code(s): D72.829 - ELEVATED WHITE BLOOD CELL COUNT, UNSPECIFIED Status: Resolved Priority: High Qualifiers: Leukocytosis type: unspecified Qualified Code(s): D72.829 - Elevated white blood cell count, unspecified (7) Dehydration SNOMED Code(s): 71987730 Code(s): E86.0 - DEHYDRATION Status: Resolved Priority: High (8) Hyperglycemia due to type 2 diabetes mellitus SNOMED Code(s): 512286681175218, 579921125107629 Code(s): E11.65 - TYPE 2 DIABETES MELLITUS WITH HYPERGLYCEMIA Status: Acute Priority: High Qualifiers: Diabetes mellitus residential insulin use: with terminal gauger supervisor use Qualified Code( s): E11.65 - Type 2 diabetes mellitus with hyperglycemia; Z79.4 - terminal system operator ( current) use of insulin (9) DNI (do not intubate) SNOMED Code(s): 356380986 Code(s): Z78.9 - OTHER SPECIFIED HEALTH STATUS Status: Chronic (10) DNR (do not resuscitate) Status: Chronic (11) CHF (congestive heart failure) SNOMED Code(s): 58852816 Code(s): I50.9 - HEART FAILURE, UNSPECIFIED Status: Chronic Qualifiers: Congestive heart failure chronicity: chronic (12) Hypothyroidism SNOMED Code(s): 81292963 Code(s): E03.9 - HYPOTHYROIDISM, UNSPECIFIED Status: Chronic Qualifiers: Hypothyroidism type: due to acquired atrophy of thyroid Qualified Code(s): E03.4 - Atrophy of thyroid (acquired) (13) Decreased mobility and endurance SNOMED Code(s): 1715654 Code(s): Z74.09 - OTHER REDUCED MOBILITY Status: Acute Priority: High (14) Mobilizes using aids SNOMED Code(s): 122673696 Code(s): Z99.89 - DEPENDENCE ON OTHER ENABLING MACHINES AND DEVICES Status : Chronic (15) Palliative care status SNOMED Code(s): 152070012 Code(s): Z51.5 - ENCOUNTER FOR PALLIATIVE CARE Status: Acute Priority: High (16) HTN, goal below 140/90 SNOMED Code(s): 84055739 Code(s): I10 - ESSENTIAL (PRIMARY) HYPERTENSION Status: Chronic (17) Tobacco dependence SNOMED Code(s): 39599367 Code(s): F17.200 - NICOTINE DEPENDENCE, UNSPECIFIED, UNCOMPLICATED Status: Chronic (18) Hyponatremia SNOMED Code(s): 03083269 Code(s): E87.1 - HYPO-OSMOLALITY AND HYPONATREMIA Status: Acute (19) IDDM (insulin dependent diabetes mellitus) SNOMED Code(s): 67513943 Code(s): E11.9 - TYPE 2 DIABETES MELLITUS WITHOUT COMPLICATIONS; Z79.4 - RESIDENTIAL (CURRENT) USE OF INSULIN Status: Chronic Priority: High - Problem List Review Problem List Initiated/Reviewed/Updated: Yes - My Orders Last 24 Hours: My Active Orders 11/27/16 08:58 RT Incentive Spirometry [RC] Q4HWA 11/27/16 09:13 Give supplemental Oxygen PRN [COMM] Routine 11/27/16 10:30 Enoxaparin [Lovenox] 30 mg SUBCUT Q24H 11/27/16 21:00 Levofloxacin/Dextrose 5%-Water [Levaquin in D5W 750 MG/150 ML] 750 mg Premix Bag 1 bag IV Q48H 11/27/16 Lunch Fluid Restriction [DIET] 11/28/16 06:00 CXR [Chest 2V] [CR] Routine Renal Comp [US] Routine 11/29/16 06:00 Echo Comp wo Cont [US] Routine 11/29/16 10:30 CREATININE W/GFR [CHEM] Routine - Plan Plan:: CXR this morning showing bilat infiltrates, mild cephalization without effusion. bnp up. Will continue lasix with fluid restrictions. echo tomorrow morning. renal US today. motrin and amlodipine held. SL IV. monitor fluid status closely. current medication dosing, vital monitoring, and PICC placement today. labile hyperglycemia continues at this time. insulin dosing as appropriate. Electrolytes, wbc, renal function and crp improving. appetite improving. still weak, but pt/ot on board. numerous commodities and complications that may arise, but for now, she is continuing to show improvement. will continue to remain med/surg. Anticipate stay additional 3-4 days inpt and then transfer to swing bed for strengthening and continued abx therapy (to complete two week coarse). debriefing in presence of pt and her daughter. and they agree to the above assessments and recommended coarse of care.
[2016-11-28] MEDS: Insulin Aspart 100 Units/ML 3 ML Pen SUBCUT SCH ×4 (08:54→20:25)
[2016-11-28] MEDS: Ondansetron 4 MG/2 ML SDV IV PRN (11:53)
[2016-11-28] MEDS: Enoxaparin 30 MG/0.3 ML Syringe SUBCUT SCH (11:55)
[2016-11-28] MEDS: Nicotine 14 MG/24 Hr Patch TRDERM SCH (11:56)
[2016-11-28] MEDS: Emollient 454 GM Jar TOP SCH (11:58)
[2016-11-28] MEDS: Insulin Detemir 100 Units/ML 3 ML Pen SUBCUT SCH (13:05)
[2016-11-28] MEDS ORDERED: Lidocaine/Prilocaine 2.5-2.5% Crm 5 GM Tube TOP ONE (13:24)
[2016-11-28] MEDS ORDERED: LORazepam 0.5 MG Tab PO PRN (13:26)
--- NOTE | 2016-11-28 13:28 | US ---
INDICATION: Recurrent UTI, assess for pyelonephritis, hydronephrosis, calculi. RENAL ULTRASOUND COMPLETE: Multiple ultrasonic images revealed the right kidney to measure 11.2 x 4.3 x 5.4 cm. The left kidney measured 12 x 5.0 x 4.9 cm. In the anterior upper middle pole cortex, extending slightly into the medullary area, there is a purely cystic mass in the right kidney, measuring 2.24 x 1.79 x 1.88 cm. No other mass lesions were identified in the kidneys. No definite calculi could be identified. No evidence of hydronephrosis was seen. Color flow appears to be roughly equivalent, showing equivalent blood flow to the kidneys bilaterally. The urinary bladder showed no evidence of a definite mass, although the wall may be slightly thickened. Bilateral ureteral jets are noted, which is compatible with the non-obstructed appearance of the kidneys. IMPRESSION: 1. Probable benign cyst 2.25 cm maximum diameter right kidney. Upper urinary tract otherwise unremarkable. 2. Question slight thickening of the urinary bladder wall. Report was called to Dr. Nixon at 1200 hours, 11/28/2016. [facility]
[2016-11-28] MEDS ORDERED: NS + KCl 20mEq/L 1,000 ML IV SCH (13:30)
--- NOTE | 2016-11-28 13:47 | CR ---
INDICATION: Fever and chills. CHEST: AP and lateral views of the chest were obtained 11/25/2016 and compared with 04/23/2012, revealing much better inspiration on the current study with the heart slightly prominent in size, but not grossly enlarged. The aorta is tortuous with calcification in the arch and descending portion. Somewhat flattened diaphragm leaves, prominent AP diameter, and hyperaeration all suggest COPD. Bony structures appear to be fairly intact, although possibly mildly demineralized, raising question of osteoporosis - correlate clinically. A definite active infiltrate or effusion was not identified, although interstitial markings are heavy. They were heavy previously and may represent pulmonary fibrosis or a mild degree of CHF with interstitial lung edema. However, the upper lung field pulmonary vasculature appeared relatively normal, suggesting that these interstitial changes are fibrotic in nature or due to either pneumonia or other interstitial process. No gross consolidating pneumonia or effusion could be identified. IMPRESSION: 1. No definite acute process, but cannot exclude an active interstitial process such as interstitial pneumonia or lung edema, or pulmonary fibrosis. No definite evidence of CHF is seen, however. 2. Probable ASHD. 3. Possible osteoporosis. 4. COPD. MTDD
--- NOTE | 2016-11-28 13:49 | CR ---
INDICATION: Follow-up pneumonia. CHEST: PA and lateral views of the chest, 11/28/2016, were compared with 2016 and 04/23/2012, now revealing infiltration relatively focally at the middle lobe, suggesting a focal area of pneumonia with pleuritis, since there is blunting of the costophrenic angle on the right. However, there is also blunting of the posterior sulci bilaterally with some minimal infiltrate now seen at the left costophrenic angle. These findings suggest bibasilar pneumonia and pleuritis. Additionally, there is some patchy infiltrate suggested in the mid lung field on the left. Interstitial markings are also heavy, which were present previously, and may be on the basis of fibrosis. The heart appears mildly enlarged with tortuous aorta calcified in the arch and descending portion. Diminished bone density suggests the possibility of osteoporosis. Flattened diaphragm leaves and slightly prominent AP diameter suggests COPD along with hyperaeration. IMPRESSION: 1. Bibasilar pneumonia and pleuritis, right greater than left. 2. COPD. 3. ASHD with mild cardiomegaly. 4. Osteoporosis. 5. Pulmonary fibrosis. MTDD
[2016-11-28] MEDS: Potassium Chloride 10 MEQ Tab.ER PO SCH ×2 (14:07→21:41)
[2016-11-28] MEDS: Multivitamin Tab PO SCH (14:07)
[2016-11-28] MEDS: Furosemide 20 MG Tab PO SCH (14:07)
[2016-11-28] MEDS: Pantoprazole 40 MG Vial IVPUSH SCH (14:21)
[2016-11-28] MEDS: Losartan 100 MG Tab PO SCH (14:22)
[2016-11-28] MEDS: Metoprolol Succinate 50 MG Tab.ER PO SCH (14:23)
[2016-11-28] MEDS ORDERED: Albuterol/Ipratropium 3.0-0.5 MG/3 ML Neb Soln NEB ONE (20:09)
[2016-11-28] MEDS ORDERED: LORazepam 0.5 MG Tab PO SCH (21:00)
[2016-11-28] MEDS ORDERED: Furosemide 20 MG Tab PO ONE (22:30)
[2016-11-29] MEDS: Albuterol/Ipratropium 3.0-0.5 MG/3 ML Neb Soln NEB SCH ×4 (02:06→20:22)
[2016-11-29] MEDS: Levothyroxine 75 MCG Tab PO SCH (06:30)
[2016-11-29] MEDS ORDERED: Furosemide 20 MG/2 ML VIAL IVPUSH ONE (07:44)
--- NOTE | 2016-11-29 08:47 | PCM.PN ---
- General Info Date of Service: 11/29/16 Functional Status: Reports: Tolerating Diet, Ambulating, Urinating, New Symptoms (some nausea and loose stool today. no vomiting. ), Incentive Spirometry - Review of Systems General: Reports: Weakness HEENT: Reports: No Symptoms Pulmonary: Reports: Shortness of Breath (last night with sob, cxr showed continued mild pulmonary edema given iv lasix, good urine output, improved symptoms. ), Cough, Sputum (nonpurulent). Denies: Pleuritic Chest Pain, Hemoptysis, Wheezing Cardiovascular: Reports: Dyspnea on Exertion, Edema. Denies: Chest Pain, Palpitations, Orthopnea, Lightheadedness Gastrointestinal: Reports: Flatus, Nausea. Denies: Abdominal Pain, Diarrhea, Hematochezia, Melena Genitourinary: Denies: Dysuria, Incontinence, Hematuria, Flank Pain Musculoskeletal: Denies: Arm Pain, Leg Pain Skin: Denies: Jaundice, Diaphoresis, Rash Neurological: Reports: Weakness. Denies: Dizziness Psychiatric: Reports: Anxiety (mild in the evenings. controlled with prn ativan. ) - Patient Data Vitals - Most Recent: Last Vital Signs Temp 98.0 F 11/29/16 04:45 Pulse 104 H 11/29/16 04:45 Resp 20 11/29/16 04:45 BP 174/62 H 11/29/16 04:45 Pulse Ox 92 L 11/29/16 04:45 WT: 72.348 kg (up 14# total) I&O - Last 24 Hours: Intake & Output 11/28/16 11/29/16 11/29/16 22:59 06:59 14:59 Intake Total 1720 555 Output Total 350 600 Balance 1370 -45 Imaging Impressions - Last 24 Hours: renal US negative for pylo, hydroneph,renal calculi, bladder mass or distension. Lab Results Last 24 Hours: Laboratory Results - last 24 hr 11/28/16 11/28/16 11/28/16 Range/Units 11:27 18:30 20:23 WBC (4.5-12.0) X10-3/uL RBC (3.23-5.20) x10(6)uL Hgb (11.5-15.5) g/dL Hct (30.0-51.3) % MCV (80-96) fL MCH (27.7-33.6) pg MCHC (32.2-35.4) g/dL RDW (11.5-15.5) % Plt Count (125-369) X10(3)uL MPV (7.4-10.4) fL Neut % (Auto) (46-82) % Lymph % (Auto) (13-37) % [place]aine % (Auto) (4-12) % Eos % (Auto) (1.0-5.0) % Baso % (Auto) (0-2) % Neut # (Auto) (1.6-8.3) # Lymph # (Auto) (0.6-5.0) # Blaine # (Auto) (0.0-1.3) # Eos # (Auto) (0.0-0.8) # Baso # (Auto) (0.0-0.2) # Add Manual Diff Neutrophils % (Manual) (46-82) % Lymphocytes % (Manual) (13-37) % Monocytes % (Manual) (4-12) % Sodium (135-145) mmol/L Potassium (3.5-5.3) mmol/L Chloride (100-110) mmol/L Carbon Dioxide (23-29) mmol/L BUN (8-23) mg/dL Creatinine (0.6-1.3) mg/dL Est Cr Clr Drug Dosing mL/min Estimated GFR (MDRD) (>60) BUN/Creatinine Ratio (9-20) Glucose (80-116) mg/dL POC Glucose 341 H D 271 H 226 H (80-116) mg/dL Calcium (8.6-10.2) mg/dL B-Natriuretic Peptide (0-100) pg/mL 11/28/16 11/28/16 11/28/16 Range/Units 20:40 20:40 20:40 WBC 13.5 H (4.5-12.0) X10-3/uL RBC 3.52 (3.23-5.20) x10(6)uL Hgb 10.9 L (11.5-15.5) g/dL Hct 31.7 (30.0-51.3) % MCV 90.0 (80-96) fL MCH 30.9 (27.7-33.6) pg MCHC 34.3 (32.2-35.4) g/dL RDW 11.9 (11.5-15.5) % Plt Count 285 (125-369) X10(3)uL MPV 8.6 (7.4-10.4) fL Neut % (Auto) 83.7 H (46-82) % Lymph % (Auto) 10.1 L (13-37) % [place]aine % (Auto) 5.7 (4-12) % Eos % (Auto) 0 L (1.0-5.0) % Baso % (Auto) 0 (0-2) % Neut # (Auto) 11.2 H (1.6-8.3) # Lymph # (Auto) 1.4 (0.6-5.0) # Blaine # (Auto) 0.8 (0.0-1.3) # Eos # (Auto) 0.0 (0.0-0.8) # Baso # (Auto) 0.1 (0.0-0.2) # Add Manual Diff Neutrophils % (Manual) (46-82) % Lymphocytes % (Manual) (13-37) % Monocytes % (Manual) (4-12) % Sodium 133 L (135-145) mmol/L Potassium 3.8 (3.5-5.3) mmol/L Chloride 102 (100-110) mmol/L Carbon Dioxide 23 (23-29) mmol/L BUN 14 (8-23) mg/dL Creatinine 0.9 (0.6-1.3) mg/dL Est Cr Clr Drug Dosing 37.12 mL/min Estimated GFR (MDRD) 59 L (>60) BUN/Creatinine Ratio 15.6 (9-20) Glucose 240 H D (80-116) mg/dL POC Glucose (80-116) mg/dL Calcium 8.1 L (8.6-10.2) mg/dL B-Natriuretic Peptide 569 H (0-100) pg/mL 11/29/16 11/29/16 11/29/16 Range/Units 06:20 06:20 06:29 WBC 14.1 H (4.5-12.0) X10-3/uL RBC 3.48 (3.23-5.20) x10(6)uL Hgb 10.7 L (11.5-15.5) g/dL Hct 31.4 (30.0-51.3) % MCV 90.2 (80-96) fL MCH 30.6 (27.7-33.6) pg MCHC 34.0 (32.2-35.4) g/dL RDW 11.9 (11.5-15.5) % Plt Count 267 (125-369) X10(3)uL MPV 9.0 (7.4-10.4) fL Neut % (Auto) (46-82) % Lymph % (Auto) (13-37) % [place] % (Auto) (4-12) % Eos % (Auto) (1.0-5.0) % Baso % (Auto) (0-2) % Neut # (Auto) (1.6-8.3) # Lymph # (Auto) (0.6-5.0) # [place] # (Auto) (0.0-1.3) # Eos # (Auto) (0.0-0.8) # Baso # (Auto) (0.0-0.2) # Add Manual Diff Yes Neutrophils % (Manual) 76 (46-82) % Lymphocytes % (Manual) 18 (13-37) % Monocytes % (Manual) 6 (4-12) % Sodium 134 L (135-145) mmol/L Potassium 3.6 (3.5-5.3) mmol/L Chloride 104 (100-110) mmol/L Carbon Dioxide 22 L (23-29) mmol/L BUN 13 (8-23) mg/dL Creatinine 0.9 (0.6-1.3) mg/dL Est Cr Clr Drug Dosing 37.12 mL/min Estimated GFR (MDRD) 59 L (>60) BUN/Creatinine Ratio 14.4 (9-20) Glucose 107 D (80-116) mg/dL POC Glucose 98 D (80-116) mg/dL Calcium 8.0 L (8.6-10.2) mg/dL B-Natriuretic Peptide (0-100) pg/mL Mil Results Last 24 Hours: Repeat bc x 2 obtained yesterday prior to PICC. e.coli suscep to levo. Med Orders - Current: Current Medications Acetaminophen (Tylenol) 650 mg PO Q4H PRN PRN Reason: Pain (Mild 1-3)/fever Last Admin: 11/28/16 02:24 Dose: 650 mg Albuterol/Ipratropium (Duoneb 3.0-0.5 Mg/3 Ml) 3 ml NEB Q8H [facility] Last Admin: 11/29/16 02:06 Dose: 3 ml Amlodipine Besylate (Norvasc) 10 mg PO DAILY [facility] Last Admin: 11/26/16 10:31 Dose: 10 mg Emollient Ointment (Vanicream) 0 gm TOP DAILY [facility] Last Admin: 11/28/16 11:58 Dose: 1 applic Enoxaparin Sodium (Lovenox) 30 mg SUBCUT Q24H [facility] Last Admin: 11/28/16 11:55 Dose: 30 mg Furosemide (Lasix) 20 mg PO DAILY [facility] Last Admin: 11/28/16 14:07 Dose: Not Given Sodium Chloride (Normal Saline) 250 mls @ 50 mls/hr IV ASDIRECTED [facility] Last Admin: 11/25/16 22:06 Dose: 50 mls/hr Levofloxacin/Dextrose 750 mg/ (Premix) 150 mls @ 100 mls/hr IV Q48H [facility] Last Admin: 11/27/16 20:49 Dose: 100 mls/hr Ibuprofen (Motrin) 600 mg PO Q6H PRN PRN Reason: Pain (mild 1-3) Last Admin: 11/27/16 21:48 Dose: 600 mg Insulin Aspart (Novolog) 5 unit SUBCUT WITHMEALSANDBED [facility] Last Admin: 11/28/16 20:25 Dose: 5 units Insulin Aspart (Novolog) 0 unit SUBCUT TIDMEALS PRN; Protocol PRN Reason: hypergycemia Last Admin: 11/26/16 09:19 Dose: 1 unit Insulin Detemir (Levemir) 28 unit SUBCUT DAILY [facility] Last Admin: 11/28/16 13:05 Dose: 28 units Levothyroxine Sodium (Levothyroxine) 75 mcg PO ACBREAKFAST [facility] Last Admin: 11/29/16 06:30 Dose: 75 mcg Lorazepam (Ativan) 0.5 mg PO BEDTIME [facility] Last Admin: 11/28/16 21:44 Dose: 0.5 mg Lorazepam (Ativan) 0.5 mg PO Q8H PRN PRN Reason: Anxiety Last Admin: 11/28/16 16:08 Dose: 0.5 mg Losartan Potassium (Cozaar) 100 mg PO DAILY [facility] Last Admin: 11/28/16 14:22 Dose: 100 mg Metoprolol Succinate (Toprol Xl) 50 mg PO DAILY [facility] Last Admin: 11/28/16 14:23 Dose: 50 mg Multivitamins/Minerals/Vitamin C (Tab-A-[place]) 1 tab PO DAILY [facility] Last Admin: 11/28/16 14:07 Dose: Not Given Nicotine (Habitrol) 14 mg TRDERM DAILY [facility] Last Admin: 11/28/16 11:56 Dose: 14 mg Ondansetron HCl (Zofran) 4 mg IV Q4H PRN PRN Reason: Nausea/Vomiting Last Admin: 11/28/16 11:53 Dose: 4 mg Pantoprazole Sodium (Protonix Iv) 40 mg IVPUSH DAILY [facility] Last Admin: 11/28/16 14:21 Dose: 40 mg Potassium Chloride (Klor-Con 10) 10 meq PO BIDMEALS [facility] Sodium Chloride (Saline Flush) 10 ml FLUSH ASDIRECTED PRN PRN Reason: Keep Vein Open Discontinued Medications Albuterol/Ipratropium (Duoneb 3.0-0.5 Mg/3 Ml) 3 ml NEB ONETIME ONE Stop: 11/28/16 20:10 Last Admin: 11/28/16 20:20 Dose: 3 ml Diphenhydramine HCl (Benadryl) 25 mg IVPUSH ONETIME ONE Stop: 11/25/16 22:07 Last Admin: 11/25/16 22:20 Dose: 25 mg Enoxaparin Sodium (Lovenox) 40 mg SUBCUT DAILY [facility] Last Admin: 11/26/16 10:30 Dose: 40 mg Furosemide (Lasix) 20 mg PO ONETIME ONE Stop: 11/28/16 22:31 Last Admin: 11/28/16 23:35 Dose: 20 mg Furosemide (Lasix) 20 mg IVPUSH NOW ONE Stop: 11/29/16 07:45 Last Admin: 11/29/16 08:20 Dose: 20 mg Levofloxacin/Dextrose 750 mg/ (Premix) 150 mls @ 100 mls/hr IV ONETIME ONE Stop: 11/25/16 22:26 Last Admin: 11/25/16 22:00 Dose: 100 mls/hr Sodium Chloride (Normal Saline) 1,000 mls @ 100 mls/hr IV ASDIRECTED [facility] Last Admin: 11/28/16 06:22 Dose: 100 mls/hr Vancomycin HCl 1,000 mg/ (Sodium Chloride) 250 mls @ 167 mls/hr IV Q24H [facility] Last Admin: 11/27/16 11:35 Dose: 167 mls/hr Metronidazole 500 mg/ Premix 100 mls @ 100 mls/hr IV Q8H [facility] Last Infusion: 11/27/16 06:29 Dose: Infused Meropenem 1 gm/ Sodium (Chloride) 100 mls @ 200 mls/hr IV Q12H [facility] Last Admin: 11/28/16 04:13 Dose: 200 mls/hr Metronidazole 500 mg/ Premix 100 mls @ 100 mls/hr IV Q8H [facility] Last Admin: 11/28/16 00:41 Dose: 100 mls/hr Metronidazole (Flagyl 500 Mg In Ns 100 Ml) Confirm Administered Dose 100 mls @ as directed .ROUTE .STK[facility] ONE Stop: 11/27/16 16:57 Last Admin: 11/27/16 17:18 Dose: Not Given Metronidazole (Flagyl 500 Mg In Ns 100 Ml) Confirm Administered Dose 100 mls @ as directed .ROUTE .STK-[facility] ONE Stop: 11/28/16 00:33 Last Admin: 11/28/16 00:43 Dose: Not Given Potassium Chloride/Sodium Chloride (Normal Saline With 20 Meq Kcl) 1,000 mls @ 50 mls/hr IV Q20H [facility] Last Admin: 11/28/16 14:21 Dose: 50 mls/hr Insulin Detemir (Levemir) 28 unit SUBCUT DAILY [facility] Insulin Human Regular (Humulin R) 0 unit SUBCUT TID [facility] PRN Reason: Protocol Insulin Human Regular (Humulin R) 0 unit SUBCUT QID [facility] PRN Reason: Protocol Lidocaine/Prilocaine (Emla Crm) 5 gm TOP ONETIME ONE Stop: 11/28/16 13:25 Potassium Chloride (Klor-Con 10) 10 meq PO BID [facility] Last Admin: 11/28/16 21:41 Dose: Not Given Vancomycin HCl (Pharmacy To Dose - Vancomycin) 1 dose .XX ASDIRECTED [facility] - Exam Quality Assessment: Central Line/PICC (RUE), DVT Prophylaxis. No: Skin Breakdown General: Alert, Oriented, No Acute Distress HEENT: Mucous Membr. Moist/[place] Neck: No JVD Lungs: Normal Respiratory Effort, Crackles, Rales, Rhonchi. No: Wheezing Cardiovascular: Regular Rhythm, Tachycardia (s/p neb). No: Murmurs GI/Abdominal Exam: Normal Bowel Sounds, Soft, Non-Tender, No Distention Back Exam: No: CVA Tenderness (R), CVA Tenderness (L) Extremities: Non-Tender, Pedal Edema (1+ bilat symetric) Skin: Warm, Dry, Intact Neurological: No New Focal Deficit Psy/Mental Status: Alert, Normal Affect, Normal Mood. No: Withdrawal Symptoms EKG INTERPRETATION Rhythm: NSR QRS: Normal ST-T: Normal QT: Normal Comparison: No Change - Problem List & Annotations (1) COPD with acute lower respiratory infection SNOMED Code(s): 186870764 Code(s): J44.0 - CHRONIC OBSTRUCTIVE PULMON DISEASE W ACUTE LOWER RESP INFCT Status: Acute Priority: High (2) Acute hemorrhagic cystitis SNOMED Code(s): 75102052 Code(s): N30.01 - ACUTE CYSTITIS WITH HEMATURIA Status: Acute Priority: High (3) Blood bacterial culture positive SNOMED Code(s): 426245853 Code(s): R78.81 - BACTEREMIA Status: Acute Priority: High (4) Sepsis SNOMED Code(s): 55214250 Code(s): A41.9 - SEPSIS, UNSPECIFIED ORGANISM Status: Acute Priority: High Qualifiers: Sepsis type: sepsis due to unspecified organism Qualified Code(s): A41.9 - Sepsis, unspecified organism (5) CHF (congestive heart failure) SNOMED Code(s): 80545617 Code(s): I50.9 - HEART FAILURE, UNSPECIFIED Status: Chronic Qualifiers: Congestive heart failure chronicity: chronic (6) HTN, goal below 140/90 SNOMED Code(s): 35771673 Code(s): I10 - ESSENTIAL (PRIMARY) HYPERTENSION Status: Chronic (7) S/P PICC central line placement SNOMED Code(s): 564011107, 769552118, 189045344, 199631354 Code(s): Z95.828 - PRESENCE OF OTHER VASCULAR IMPLANTS AND GRAFTS Status: Acute Annotation/Comment:: 11/29/16 right UE (8) Elevated white blood cell count SNOMED Code(s): 159174093, 154196443 Code(s): D72.829 - ELEVATED WHITE BLOOD CELL COUNT, UNSPECIFIED Status: Resolved Priority: High Qualifiers: Leukocytosis type: unspecified Qualified Code(s): D72.829 - Elevated white blood cell count, unspecified (9) Renal insufficiency SNOMED Code(s): 827972216, 986157765 Code(s): N28.9 - DISORDER OF KIDNEY AND URETER, UNSPECIFIED Status: Resolved Priority: High (10) Hyperglycemia due to type 2 diabetes mellitus SNOMED Code(s): 407725873983157, 368331606142669 Code(s): E11.65 - TYPE 2 DIABETES MELLITUS WITH HYPERGLYCEMIA Status: Acute Priority: High Qualifiers: Diabetes mellitus manager terminal insulin use: with jail use Qualified Code( s): E11.65 - Type 2 diabetes mellitus with hyperglycemia; Z79.4 - senior living ( current) use of insulin (11) Dehydration SNOMED Code(s): 06508462 Code(s): E86.0 - DEHYDRATION Status: Resolved Priority: High (12) DNI (do not intubate) SNOMED Code(s): 846539839 Code(s): Z78.9 - OTHER SPECIFIED HEALTH STATUS Status: Chronic (13) DNR (do not resuscitate) Status: Chronic (14) Hypothyroidism SNOMED Code(s): 89174537 Code(s): E03.9 - HYPOTHYROIDISM, UNSPECIFIED Status: Chronic Qualifiers: Hypothyroidism type: due to acquired atrophy of thyroid Qualified Code(s): E03.4 - Atrophy of thyroid (acquired) (15) Decreased mobility and endurance SNOMED Code(s): 3404424 Code(s): Z74.09 - OTHER REDUCED MOBILITY Status: Acute Priority: High (16) Mobilizes using aids SNOMED Code(s): 732188119 Code(s): Z99.89 - DEPENDENCE ON OTHER ENABLING MACHINES AND DEVICES Status : Chronic (17) Palliative care status SNOMED Code(s): 782460498 Code(s): Z51.5 - ENCOUNTER FOR PALLIATIVE CARE Status: Acute Priority: High (18) Tobacco dependence SNOMED Code(s): 92366328 Code(s): F17.200 - NICOTINE DEPENDENCE, UNSPECIFIED, UNCOMPLICATED Status: Chronic (19) Hyponatremia SNOMED Code(s): 08827966 Code(s): E87.1 - HYPO-OSMOLALITY AND HYPONATREMIA Status: Acute (20) IDDM (insulin dependent diabetes mellitus) SNOMED Code(s): 66488469 Code(s): E11.9 - TYPE 2 DIABETES MELLITUS WITHOUT COMPLICATIONS; Z79.4 - [employer] (CURRENT) USE OF INSULIN Status: Chronic Priority: High - Problem List Review Problem List Initiated/Reviewed/Updated: Yes - My Orders Last 24 Hours: My Active Orders 11/28/16 13:24 Central Line Assessment [RC] QSHIFT Blood Culture x2 Reflex Set [OM.PC] Urgent 11/28/16 13:26 LORazepam [Ativan] 0.5 mg PO Q8H PRN 11/28/16 13:28 CDIFF TOXIN A+B GROUP [OP] Routine 11/28/16 13:35 CULTURE BLOOD [BC] Urgent 11/28/16 13:40 CULTURE BLOOD [BC] Urgent 11/28/16 13:45 Pantoprazole [ProTONIX IV] 40 mg IVPUSH DAILY 11/28/16 15:00 Central Venous Line Insertion [OM.PC] Routine 11/28/16 21:00 LORazepam [Ativan] 0.5 mg PO BEDTIME 11/29/16 06:00 Echo Comp wo Cont [US] Routine 11/29/16 07:48 Convert IV to Saline Lock [OM.PC] Routine 11/29/16 18:00 Potassium Chloride [Klor-Con 10] 10 meq PO BIDMEALS - Plan Plan:: schedule lasix IV. bp meds also on board except amlodapine. picc in place. levaquin iv dosing per pharm, to complete 2 wk coarse. continue svn continue insulin, diet/fluid restrictions echocard pending protonix on board and lovenox increased with improved renal function. stool for c-diff pending. pt/ot reviewed. improving anticipate another 2-3 days inpt pending above then on to swing bed for continue pt/ot for strength, iv abx, discharge planning. pt and daughter agree.
[2016-11-29] MEDS: Insulin Aspart 100 Units/ML 3 ML Pen SUBCUT SCH ×4 (09:45→21:18)
[2016-11-29] MEDS: amLODIPine 10 MG Tab PO SCH (10:00)
[2016-11-29] MEDS: Pantoprazole 40 MG Vial IVPUSH SCH (10:00)
[2016-11-29] MEDS: Nicotine 14 MG/24 Hr Patch TRDERM SCH (10:00)
[2016-11-29] MEDS: Metoprolol Succinate 50 MG Tab.ER PO SCH (10:00)
[2016-11-29] MEDS: Multivitamin Tab PO SCH (10:10)
[2016-11-29] MEDS: Losartan 100 MG Tab PO SCH (10:11)
[2016-11-29] MEDS: Emollient 454 GM Jar TOP SCH (10:20)
[2016-11-29] MEDS: Furosemide 20 MG Tab PO SCH (10:29)
[2016-11-29] MEDS: Enoxaparin 30 MG/0.3 ML Syringe SUBCUT SCH (10:31)
--- NOTE | 2016-11-29 10:43 | CR ---
INDICATION: Short of breath. CHEST: PA and lateral views of the chest were obtained 11/28/2016 at 1949 hours and compared with 11/28/2016 at 0832 hours, revealing decreased infiltration at the lung bases, compatible with either resolving edema, or resolving pneumonia. There remains evidence of bibasilar pneumonia and pleuritis. Some atelectatic change is also now suggested at the right lower lobe. Findings also remain compatible with COPD, osteoporosis, and ASHD with cardiomegaly. Dextroconcave scoliosis of the thoracolumbar spine is noted. Degenerative changes are noted in the mid to lower thoracic spine. IMPRESSION: 1. Some improvement in the appearance of the chest with continued bibasilar pneumonia and pleuritis, however. 2. COPD. 3. ASHD with cardiomegaly. 4. Osteoporosis, DJD and scoliosis. MTDD
--- NOTE | 2016-11-29 10:45 | CR ---
INDICATION: Check PICC line placement. CHEST: A single AP supine view of the chest was obtained for PICC line placement and revealed the PICC line from the right arm with its tip curved at the level of the aortic arch - aortopulmonary window. No complicating process was suggested. MTDD
[2016-11-29] MEDS: Insulin Detemir 100 Units/ML 3 ML Pen SUBCUT SCH (11:00)
[2016-11-29] MEDS ORDERED: LORazepam Conc Solution 2 MG/ML 30 ML Bottle PO PRN (11:14)
[2016-11-29] MEDS ORDERED: LORazepam 0.5 MG Tab PO PRN (13:08)
[2016-11-29] MEDS ORDERED: Furosemide 20 MG/2 ML VIAL IVPUSH SCH (14:00)
[2016-11-29] MEDS: Acetylcysteine 20% 200 MG/ML 30 ML Nebulizer Soln SDV NEB SCH ×2 (15:51→20:21)
[2016-11-29] MEDS: Potassium Chloride 10 MEQ Tab.ER PO SCH (17:59)
[2016-11-29] MEDS: Levofloxacin/Dextrose 5%-Water 750 MG in Premix Bag 1 BAG IV SCH (20:24)
[2016-11-30] MEDS: Albuterol/Ipratropium 3.0-0.5 MG/3 ML Neb Soln NEB SCH ×4 (07:17→22:06)
[2016-11-30] MEDS: Acetylcysteine 20% 200 MG/ML 30 ML Nebulizer Soln SDV NEB SCH ×4 (07:18→22:06)
[2016-11-30] MEDS ORDERED: LORazepam 0.5 MG Tab PO PRN (07:38)
[2016-11-30] MEDS: Insulin Aspart 100 Units/ML 3 ML Pen SUBCUT PRN ×2 (07:43→17:35)
--- NOTE | 2016-11-30 08:01 | PCM.PN ---
- General Info Date of Service: 11/30/16 Functional Status: Reports: Pain Controlled, Tolerating Diet, Ambulating, Urinating, Incentive Spirometry - Review of Systems Systems Review Comment:: General: Reports: Weakness improving HEENT: Reports: No Symptoms Pulmonary: Reports: Shortness of Breath improving, Cough continues, Sputum ( nonpurulent). Denies: Pleuritic Chest Pain, Hemoptysis, Wheezing Cardiovascular: Reports: Dyspnea on Exertion improving, Edema continues. Denies : Chest Pain, Palpitations, Orthopnea, Lightheadedness Gastrointestinal: Reports: Flatus, Nausea improved. Denies: Abdominal Pain, Diarrhea, Hematochezia, Melena (occult negative) Genitourinary: Denies: Dysuria, Incontinence, Hematuria, Flank Pain Musculoskeletal: Denies: Arm Pain, Leg Pain Skin: Denies: Jaundice, Diaphoresis, Rash. tolerating picc. Neurological: Reports: Weakness. Denies: Dizziness Psychiatric: Reports: Anxiety (mild in the evenings. controlled with prn ativan. ) - Patient Data Vitals - Most Recent: Last Vital Signs Temp 99.4 F 11/30/16 03:54 Pulse 85 11/30/16 03:54 Resp 18 11/30/16 03:54 BP 142/51 H 11/30/16 03:54 Pulse Ox 95 11/30/16 03:54 Wt: 68.039 kg (down 9.5# from yesterday). back to baseline. I&O - Last 24 Hours: Intake & Output 11/29/16 11/30/16 11/30/16 22:59 06:59 14:59 Intake Total 700 475 Output Total 2150 750 Balance -1450 -275 Imaging Impressions - Last 24 Hours: Echocardiogram with normal EF and mild diastolic dysfunction. no pleural effusions. no valve vegitations. Lab Results Last 24 Hours: Laboratory Results - last 24 hr 11/29/16 11/29/16 11/29/16 Range/Units 09:56 13:11 17:19 WBC (4.5-12.0) X10-3/uL RBC (3.23-5.20) x10(6)uL Hgb (11.5-15.5) g/dL Hct (30.0-51.3) % MCV (80-96) fL MCH (27.7-33.6) pg MCHC (32.2-35.4) g/dL RDW (11.5-15.5) % Plt Count (125-369) X10(3)uL MPV (7.4-10.4) fL Add Manual Diff Neutrophils % (Manual) (46-82) % Lymphocytes % (Manual) (13-37) % Monocytes % (Manual) (4-12) % Sodium (135-145) mmol/L Potassium (3.5-5.3) mmol/L Chloride (100-110) mmol/L Carbon Dioxide (23-29) mmol/L BUN (8-23) mg/dL Creatinine (0.6-1.3) mg/dL Est Cr Clr Drug Dosing mL/min Estimated GFR (MDRD) (>60) BUN/Creatinine Ratio (9-20) Glucose (80-116) mg/dL POC Glucose 62 L 157 H D 205 H (80-116) mg/dL Calcium (8.6-10.2) mg/dL 11/29/16 11/30/16 11/30/16 Range/Units 20:17 01:51 02:32 WBC (4.5-12.0) X10-3/uL RBC (3.23-5.20) x10(6)uL Hgb (11.5-15.5) g/dL Hct (30.0-51.3) % MCV (80-96) fL MCH (27.7-33.6) pg MCHC (32.2-35.4) g/dL RDW (11.5-15.5) % Plt Count (125-369) X10(3)uL MPV (7.4-10.4) fL Add Manual Diff Neutrophils % (Manual) (46-82) % Lymphocytes % (Manual) (13-37) % Monocytes % (Manual) (4-12) % Sodium (135-145) mmol/L Potassium (3.5-5.3) mmol/L Chloride (100-110) mmol/L Carbon Dioxide (23-29) mmol/L BUN (8-23) mg/dL Creatinine (0.6-1.3) mg/dL Est Cr Clr Drug Dosing mL/min Estimated GFR (MDRD) (>60) BUN/Creatinine Ratio (9-20) Glucose (80-116) mg/dL POC Glucose 64 L D 40 L 116 (80-116) mg/dL Calcium (8.6-10.2) mg/dL 11/30/16 11/30/16 11/30/16 Range/Units 03:50 06:07 06:07 WBC 11.4 (4.5-12.0) X10-3/uL RBC 3.31 (3.23-5.20) x10(6)uL Hgb 9.9 L (11.5-15.5) g/dL Hct 29.9 L (30.0-51.3) % MCV 90.2 (80-96) fL MCH 29.9 (27.7-33.6) pg MCHC 33.2 (32.2-35.4) g/dL RDW 12.1 (11.5-15.5) % Plt Count 261 (125-369) X10(3)uL MPV 8.8 (7.4-10.4) fL Add Manual Diff Yes Neutrophils % (Manual) 79 (46-82) % Lymphocytes % (Manual) 13 (13-37) % Monocytes % (Manual) 8 (4-12) % Sodium 131 L (135-145) mmol/L Potassium 3.3 L (3.5-5.3) mmol/L Chloride 99 L D (100-110) mmol/L Carbon Dioxide 26 (23-29) mmol/L BUN 11 (8-23) mg/dL Creatinine 0.8 (0.6-1.3) mg/dL Est Cr Clr Drug Dosing 41.76 mL/min Estimated GFR (MDRD) > 60 (>60) BUN/Creatinine Ratio 13.8 (9-20) Glucose 164 H (80-116) mg/dL POC Glucose 208 H D (80-116) mg/dL Calcium 7.6 L (8.6-10.2) mg/dL 11/30/16 Range/Units 06:11 WBC (4.5-12.0) X10-3/uL RBC (3.23-5.20) x10(6)uL Hgb (11.5-15.5) g/dL Hct (30.0-51.3) % MCV (80-96) fL MCH (27.7-33.6) pg MCHC (32.2-35.4) g/dL RDW (11.5-15.5) % Plt Count (125-369) X10(3)uL MPV (7.4-10.4) fL Add Manual Diff Neutrophils % (Manual) (46-82) % Lymphocytes % (Manual) (13-37) % Monocytes % (Manual) (4-12) % Sodium (135-145) mmol/L Potassium (3.5-5.3) mmol/L Chloride (100-110) mmol/L Carbon Dioxide (23-29) mmol/L BUN (8-23) mg/dL Creatinine (0.6-1.3) mg/dL Est Cr Clr Drug Dosing mL/min Estimated GFR (MDRD) (>60) BUN/Creatinine Ratio (9-20) Glucose (80-116) mg/dL POC Glucose 151 H (80-116) mg/dL Calcium (8.6-10.2) mg/dL Mil Results Last 24 Hours: Microbiology 11/29/16 18:20 Stool Occult Blood (MIL) - Final Stool / Feces NEGATIVE OCCULT BLOOD 11/28/16 13:40 Aerobic Blood Culture - Preliminary Blood - Venous - Lab Draw NO GROWTH AFTER 1 DAY Anaerobic Blood Culture - Preliminary NO GROWTH AFTER 1 DAY 11/28/16 13:35 Aerobic Blood Culture - Preliminary Blood - Venous NO GROWTH AFTER 1 DAY Anaerobic Blood Culture - Preliminary NO GROWTH AFTER 1 DAY Med Orders - Current: Current Medications Acetaminophen (Tylenol) 650 mg PO Q4H PRN PRN Reason: Pain (Mild 1-3)/fever Last Admin: 11/28/16 02:24 Dose: 650 mg Acetylcysteine (Mucomyst 20%) 300 mg NEB QIDRT [facility] Last Admin: 11/30/16 07:18 Dose: 300 mg Albuterol/Ipratropium (Duoneb 3.0-0.5 Mg/3 Ml) 3 ml NEB QIDRT [facility] Last Admin: 11/30/16 07:17 Dose: 3 ml Amlodipine Besylate (Norvasc) 10 mg PO DAILY [facility] Last Admin: 11/29/16 10:00 Dose: 10 mg Emollient Ointment (Vanicream) 0 gm TOP DAILY [facility] Last Admin: 11/29/16 10:20 Dose: 1 applic Enoxaparin Sodium (Lovenox) 40 mg SUBCUT DAILY [facility] Furosemide (Lasix) 40 mg PO DAILY [facility] Sodium Chloride (Normal Saline) 250 mls @ 50 mls/hr IV ASDIRECTED [facility] Last Admin: 11/25/16 22:06 Dose: 50 mls/hr Levofloxacin/Dextrose 750 mg/ (Premix) 150 mls @ 100 mls/hr IV Q48H [facility] Last Admin: 11/29/16 20:24 Dose: 100 mls/hr Insulin Aspart (Novolog) 0 unit SUBCUT TIDMEALS PRN; Protocol PRN Reason: hypergycemia Last Admin: 11/30/16 07:43 Dose: 5 unit Insulin Aspart (Novolog) 3 unit SUBCUT TIDMEALS [facility] Insulin Detemir (Levemir) 25 unit SUBCUT DAILY [facility] Levothyroxine Sodium (Levothyroxine) 75 mcg PO ACBREAKFAST [facility] Last Admin: 11/29/16 06:30 Dose: 75 mcg Lorazepam (Ativan) 0.25 mg PO Q6H PRN PRN Reason: restlessness/insomnia Losartan Potassium (Cozaar) 100 mg PO DAILY [facility] Last Admin: 11/29/16 10:11 Dose: 100 mg Metoprolol Succinate (Toprol Xl) 50 mg PO DAILY [facility] Last Admin: 11/29/16 10:00 Dose: 50 mg Multivitamins/Minerals/Vitamin C (Tab-A-[place]) 1 tab PO DAILY [facility] Last Admin: 11/29/16 10:10 Dose: 1 tab Nicotine (Habitrol) 14 mg TRDERM DAILY [facility] Last Admin: 11/29/16 10:00 Dose: 14 mg Ondansetron HCl (Zofran) 4 mg IV Q4H PRN PRN Reason: Nausea/Vomiting Last Admin: 11/28/16 11:53 Dose: 4 mg Pantoprazole Sodium (Protonix Iv) 40 mg IVPUSH DAILY [facility] Last Admin: 11/29/16 10:00 Dose: 40 mg Potassium Chloride (Klor-Con 10) 10 meq PO BIDMEALS [facility] Last Admin: 11/29/16 17:59 Dose: 10 meq Sodium Chloride (Saline Flush) 10 ml FLUSH ASDIRECTED PRN PRN Reason: Keep Vein Open Last Admin: 11/29/16 22:12 Dose: 10 ml Discontinued Medications Albuterol/Ipratropium (Duoneb 3.0-0.5 Mg/3 Ml) 3 ml NEB Q8H [facility] Last Admin: 11/29/16 10:52 Dose: 3 ml Albuterol/Ipratropium (Duoneb 3.0-0.5 Mg/3 Ml) 3 ml NEB ONETIME ONE Stop: 11/28/16 20:10 Last Admin: 11/28/16 20:20 Dose: 3 ml Diphenhydramine HCl (Benadryl) 25 mg IVPUSH ONETIME ONE Stop: 11/25/16 22:07 Last Admin: 11/25/16 22:20 Dose: 25 mg Enoxaparin Sodium (Lovenox) 40 mg SUBCUT DAILY [facility] Last Admin: 11/26/16 10:30 Dose: 40 mg Enoxaparin Sodium (Lovenox) 30 mg SUBCUT Q24H [facility] Last Admin: 11/29/16 10:31 Dose: 30 mg Furosemide (Lasix) 20 mg PO DAILY [facility] Last Admin: 11/29/16 10:29 Dose: 20 mg Furosemide (Lasix) 20 mg PO ONETIME ONE Stop: 11/28/16 22:31 Last Admin: 11/28/16 23:35 Dose: 20 mg Furosemide (Lasix) 20 mg IVPUSH NOW ONE Stop: 11/29/16 07:45 Last Admin: 11/29/16 08:20 Dose: 20 mg Furosemide (Lasix) 20 mg IVPUSH BIDDIURETIC [facility] Last Admin: 11/29/16 15:00 Dose: 20 mg Levofloxacin/Dextrose 750 mg/ (Premix) 150 mls @ 100 mls/hr IV ONETIME ONE Stop: 11/25/16 22:26 Last Admin: 11/25/16 22:00 Dose: 100 mls/hr Sodium Chloride (Normal Saline) 1,000 mls @ 100 mls/hr IV ASDIRECTED [facility] Last Admin: 11/28/16 06:22 Dose: 100 mls/hr Vancomycin HCl 1,000 mg/ (Sodium Chloride) 250 mls @ 167 mls/hr IV Q24H [facility] Last Admin: 11/27/16 11:35 Dose: 167 mls/hr Metronidazole 500 mg/ Premix 100 mls @ 100 mls/hr IV Q8H [facility] Last Infusion: 11/27/16 06:29 Dose: Infused Meropenem 1 gm/ Sodium (Chloride) 100 mls @ 200 mls/hr IV Q12H [facility] Last Admin: 11/28/16 04:13 Dose: 200 mls/hr Metronidazole 500 mg/ Premix 100 mls @ 100 mls/hr IV Q8H [facility] Last Admin: 11/28/16 00:41 Dose: 100 mls/hr Metronidazole (Flagyl 500 Mg In Ns 100 Ml) Confirm Administered Dose 100 mls @ as directed .ROUTE .[facility] ONE Stop: 11/27/16 16:57 Last Admin: 11/27/16 17:18 Dose: Not Given Metronidazole (Flagyl 500 Mg In Ns 100 Ml) Confirm Administered Dose 100 mls @ as directed .ROUTE .[facility] ONE Stop: 11/28/16 00:33 Last Admin: 11/28/16 00:43 Dose: Not Given Potassium Chloride/Sodium Chloride (Normal Saline With 20 Meq Kcl) 1,000 mls @ 50 mls/hr IV Q20H [facility] Last Admin: 11/28/16 14:21 Dose: 50 mls/hr Ibuprofen (Motrin) 600 mg PO Q6H PRN PRN Reason: Pain (mild 1-3) Last Admin: 11/27/16 21:48 Dose: 600 mg Insulin Aspart (Novolog) 5 unit SUBCUT WITHMEALSANDBED [facility] Last Admin: 11/29/16 21:18 Dose: Not Given Insulin Detemir (Levemir) 28 unit SUBCUT DAILY [facility] Insulin Detemir (Levemir) 28 unit SUBCUT DAILY [facility] Last Admin: 11/29/16 11:00 Dose: 28 units Insulin Human Regular (Humulin R) 0 unit SUBCUT TID [facility] PRN Reason: Protocol Insulin Human Regular (Humulin R) 0 unit SUBCUT QID [facility] PRN Reason: Protocol Lidocaine/Prilocaine (Emla Crm) 5 gm TOP ONETIME ONE Stop: 11/28/16 13:25 Lorazepam (Ativan) 0.5 mg PO BEDTIME [facility] Last Admin: 11/28/16 21:44 Dose: 0.5 mg Lorazepam (Ativan) 0.5 mg PO Q8H PRN PRN Reason: Anxiety Last Admin: 11/28/16 16:08 Dose: 0.5 mg Lorazepam (Ativan) 2.5 mg PO Q8H PRN PRN Reason: anxiety/insomnia Lorazepam (Ativan) 0.25 mg PO Q8H PRN PRN Reason: anxiety/insomnia Last Admin: 11/29/16 21:41 Dose: 0.25 mg Potassium Chloride (Klor-Con 10) 10 meq PO BID [facility] Last Admin: 11/28/16 21:41 Dose: Not Given Vancomycin HCl (Pharmacy To Dose - Vancomycin) 1 dose .XX ASDIRECTED [facility] - Exam Quality Assessment: Central Line/PICC, DVT Prophylaxis General: Alert, Oriented, No Acute Distress HEENT: Pupils Equal, Mucous Membr. Moist/[place] Neck: Supple, Trachea Midline, No JVD, No Thyromegaly Lungs: Normal Respiratory Effort, Crackles, Rales (minimal bilat). No: Rhonchi , Stridor, Wheezing Cardiovascular: Regular Rate, Regular Rhythm, No Murmurs GI/Abdominal Exam: Normal Bowel Sounds, Soft, Non-Tender Back Exam: No: CVA Tenderness (R), CVA Tenderness (L) Extremities: Normal Capillary Refill, Pedal Edema (teds on. ), Increased Warmth (picc site, no infiltration, flushing non tender.), Redness Skin: Other (see above) Neurological: No New Focal Deficit Psy/Mental Status: Alert, Normal Affect, Normal Mood - Problem List & Annotations (1) COPD with acute lower respiratory infection SNOMED Code(s): 152525904 Code(s): J44.0 - CHRONIC OBSTRUCTIVE PULMON DISEASE W ACUTE LOWER RESP INFCT Status: Acute Priority: High (2) Acute hemorrhagic cystitis SNOMED Code(s): 03383438 Code(s): N30.01 - ACUTE CYSTITIS WITH HEMATURIA Status: Acute Priority: High (3) Blood bacterial culture positive SNOMED Code(s): 218814335 Code(s): R78.81 - BACTEREMIA Status: Acute Priority: High (4) Sepsis SNOMED Code(s): 58100379 Code(s): A41.9 - SEPSIS, UNSPECIFIED ORGANISM Status: Acute Priority: High Qualifiers: Sepsis type: Escherichia coli Qualified Code(s): A41.51 - Sepsis due to Escherichia coli [E. coli] (5) S/P PICC central line placement SNOMED Code(s): 706664028, 385311149, 108970485, 881150400 Code(s): Z95.828 - PRESENCE OF OTHER VASCULAR IMPLANTS AND GRAFTS Status: Acute Annotation/Comment:: 11/29/16 right UE (6) Renal insufficiency SNOMED Code(s): 467219627, 316068098 Code(s): N28.9 - DISORDER OF KIDNEY AND URETER, UNSPECIFIED Status: Resolved Priority: High (7) Elevated white blood cell count SNOMED Code(s): 412578700, 656435905 Code(s): D72.829 - ELEVATED WHITE BLOOD CELL COUNT, UNSPECIFIED Status: Resolved Priority: High Qualifiers: Leukocytosis type: unspecified Qualified Code(s): D72.829 - Elevated white blood cell count, unspecified (8) Dehydration SNOMED Code(s): 02732011 Code(s): E86.0 - DEHYDRATION Status: Resolved Priority: High (9) Hyperglycemia due to type 2 diabetes mellitus SNOMED Code(s): 985431621755951, 312665973342243 Code(s): E11.65 - TYPE 2 DIABETES MELLITUS WITH HYPERGLYCEMIA Status: Acute Priority: High Qualifiers: Diabetes mellitus halfway insulin use: with operator use Qualified Code( s): E11.65 - Type 2 diabetes mellitus with hyperglycemia; Z79.4 - compliance tester ( current) use of insulin (10) DNI (do not intubate) SNOMED Code(s): 521061074 Code(s): Z78.9 - OTHER SPECIFIED HEALTH STATUS Status: Chronic (11) DNR (do not resuscitate) Status: Chronic (12) CHF (congestive heart failure) SNOMED Code(s): 90724140 Code(s): I50.9 - HEART FAILURE, UNSPECIFIED Status: Chronic Qualifiers: Congestive heart failure chronicity: chronic (13) Hypothyroidism SNOMED Code(s): 07994714 Code(s): E03.9 - HYPOTHYROIDISM, UNSPECIFIED Status: Chronic Qualifiers: Hypothyroidism type: due to acquired atrophy of thyroid Qualified Code(s): E03.4 - Atrophy of thyroid (acquired) (14) Decreased mobility and endurance SNOMED Code(s): 5338046 Code(s): Z74.09 - OTHER REDUCED MOBILITY Status: Acute Priority: High (15) Mobilizes using aids SNOMED Code(s): 241957307 Code(s): Z99.89 - DEPENDENCE ON OTHER ENABLING MACHINES AND DEVICES Status : Chronic (16) Palliative care status SNOMED Code(s): 025634219 Code(s): Z51.5 - ENCOUNTER FOR PALLIATIVE CARE Status: Acute Priority: High (17) HTN, goal below 140/90 SNOMED Code(s): 14976130 Code(s): I10 - ESSENTIAL (PRIMARY) HYPERTENSION Status: Chronic (18) Tobacco dependence SNOMED Code(s): 41369339 Code(s): F17.200 - NICOTINE DEPENDENCE, UNSPECIFIED, UNCOMPLICATED Status: Chronic (19) Hyponatremia SNOMED Code(s): 37265889 Code(s): E87.1 - HYPO-OSMOLALITY AND HYPONATREMIA Status: Acute (20) IDDM (insulin dependent diabetes mellitus) SNOMED Code(s): 58824894 Code(s): E11.9 - TYPE 2 DIABETES MELLITUS WITHOUT COMPLICATIONS; Z79.4 - GEAR TESTER (CURRENT) USE OF INSULIN Status: Chronic Priority: High - Problem List Review Problem List Initiated/Reviewed/Updated: Yes - My Orders Last 24 Hours: My Active Orders 11/29/16 07:48 Convert IV to Saline Lock [OM.PC] Routine 11/29/16 08:00 PICC Line RN Insertion [CR] Routine 11/29/16 11:04 Antiembolic Hose [OM.PC] Routine 11/29/16 16:00 Acetylcysteine [Mucomyst 20%] 300 mg NEB QIDRT Albuterol/Ipratropium [DuoNeb 3.0-0.5 MG/3 ML] 3 ml NEB QIDRT 11/29/16 18:00 Potassium Chloride [Klor-Con 10] 10 meq PO BIDMEALS 11/29/16 18:30 CULTURE URINE [RM] Routine 11/29/16 Lunch Fluid Restriction [DIET] 11/30/16 07:38 LORazepam [Ativan] 0.25 mg PO Q6H PRN 11/30/16 07:53 EKG 12 Lead [EK] Routine 11/30/16 07:56 EKG Documentation Completion [RC] ASDIRECTED 11/30/16 08:00 Insulin Aspart [NovoLOG] 3 unit SUBCUT TIDMEALS 11/30/16 09:00 Enoxaparin [Lovenox] 40 mg SUBCUT DAILY Furosemide [Lasix] 40 mg PO DAILY Insulin Detemir [Levemir] 25 unit SUBCUT DAILY 11/30/16 14:00 COMPREHENSIVE METABOLIC PN,CMP [CHEM] Timed CRP [C-REACTIVE PROTEIN] [CHEM] Timed 11/30/16 16:45 BASIC METABOLIC PANEL,BMP [CHEM] AM - Plan Plan:: picc site warm with mild erythema, but flushing so will watch closely. bc x 2 neg so far. iv levaquin to continue full 2 wk course. wbc improved. repeat crp this afternoon. excellent urine output with wt and renal function back to baseline. increase chronic oral lasix from 20 mg to 40 mg daily. stop iv lasix. will d/c fluid restrict. continue daily wts. teds on bilat. bp improved. had also restarted her norvasc. NO MOTRIN. pulmonary status improved and moving air much better. cut down on neb frequency. continue IS and RT. Improving strength and endurance/ambulation with PT/OT. appropriate for swing bed continued goals. Anticipate discharge to tomorrow if continues to show improved status. pt and daughter agree.
[2016-11-30] MEDS: Levothyroxine 75 MCG Tab PO SCH (08:51)
[2016-11-30] MEDS: Potassium Chloride 10 MEQ Tab.ER PO SCH ×2 (08:51→17:26)
[2016-11-30] MEDS: Multivitamin Tab PO SCH (08:51)
[2016-11-30] MEDS: Losartan 100 MG Tab PO SCH (08:51)
[2016-11-30] MEDS: amLODIPine 10 MG Tab PO SCH (08:51)
[2016-11-30] MEDS: Insulin Aspart 100 Units/ML 3 ML Pen SUBCUT SCH ×3 (08:52→17:35)
[2016-11-30] MEDS: Pantoprazole 40 MG Vial IVPUSH SCH (08:53)
[2016-11-30] MEDS: Nicotine 14 MG/24 Hr Patch TRDERM SCH (08:53)
[2016-11-30] MEDS: Furosemide 40 MG Tab PO SCH (08:55)
[2016-11-30] MEDS: Enoxaparin 40 MG/0.4 ML Syringe SUBCUT SCH (08:57)
[2016-11-30] MEDS ORDERED: Insulin Detemir 100 Units/ML 3 ML Pen SUBCUT SCH (09:00)
[2016-11-30] MEDS: Emollient 454 GM Jar TOP SCH (09:02)
[2016-11-30] MEDS: Metoprolol Succinate 50 MG Tab.ER PO SCH (09:12)
[2016-12-01] MEDS: Albuterol/Ipratropium 3.0-0.5 MG/3 ML Neb Soln NEB SCH ×3 (07:07→15:05)
[2016-12-01] MEDS: Acetylcysteine 20% 200 MG/ML 30 ML Nebulizer Soln SDV NEB SCH (07:07)
[2016-12-01] MEDS: Levothyroxine 75 MCG Tab PO SCH (08:01)
[2016-12-01] MEDS: Potassium Chloride 10 MEQ Tab.ER PO SCH (08:02)
[2016-12-01] MEDS: Insulin Aspart 100 Units/ML 3 ML Pen SUBCUT PRN ×2 (08:31→12:04)
[2016-12-01] MEDS: Insulin Aspart 100 Units/ML 3 ML Pen SUBCUT SCH ×3 (08:33→12:05)
[2016-12-01] MEDS: Nicotine 14 MG/24 Hr Patch TRDERM SCH (08:39)
[2016-12-01] MEDS: Furosemide 40 MG Tab PO SCH (08:40)
[2016-12-01] MEDS: Pantoprazole 40 MG Vial IVPUSH SCH (08:40)
[2016-12-01] MEDS: Multivitamin Tab PO SCH (08:40)
[2016-12-01] MEDS: Enoxaparin 40 MG/0.4 ML Syringe SUBCUT SCH (08:41)
[2016-12-01] MEDS: Metoprolol Succinate 50 MG Tab.ER PO SCH (08:44)
[2016-12-01] MEDS: amLODIPine 10 MG Tab PO SCH (08:44)
[2016-12-01] MEDS: Losartan 100 MG Tab PO SCH (08:44)
[2016-12-01] MEDS: Emollient 454 GM Jar TOP SCH (08:45)
[2016-12-01] MEDS ORDERED: Insulin Detemir 100 Units/ML 3 ML Pen SUBCUT SCH (09:00)
[2016-12-01 15:07] VITALS: BP 138/82
--- NOTE | 2016-12-01 15:43 | PCM.DCSUM1 ---
Discharge Summary - Hospital Course Free Text/Narrative:: Admission Diagnosis/Problem Admission Diagnosis/Problem Pneumonia HPI Initial Comments: Allergies Allergy/AdvReac Type Severity Reaction Status Date / Time amoxicillin Allergy Hives Verified 04/28/16 16:41 erythromycin base Allergy Swelling Verified 05/19/16 13:10 Fish Containing Products Allergy Swelling Verified 05/19/16 13:10 iodine Allergy Swelling Verified 04/28/16 16:41 latex Allergy Swelling Verified 04/28/16 16:41 Penicillins Allergy Hives Verified 04/28/16 16:41 Home Meds: Home Meds Furosemide 20 mg PO DAILY 11/30/15 [History] Insulin Aspart [NovoLOG] 5 unit SQ WITHMEALSANDBED 11/30/15 [History] Insulin Glarg,Human.Rec.Analog [LantUS Solostar] 28 unit SUBCUT DAILY 11/30/15 [ History] Levothyroxine Sodium [Synthroid] 75 mcg PO ACBREAKFAST 11/30/15 [History] Losartan [Cozaar] 100 mg PO DAILY 11/30/15 [History] Metoprolol Succinate [Toprol XL] 50 mg PO DAILY 11/30/15 [History] amLODIPine [Norvasc] 10 mg PO DAILY 11/30/15 [History] Albuterol/Ipratropium [DuoNeb 3.0-0.5 MG/3 ML] 1 inh INH DAILY 05/19/16 [History ] Cholecalciferol (Vitamin D3) [Vitamin D3] 1,000 unit PO DAILY 05/19/16 [History] Multivitamin [Multi-Vitamin Daily] 1 tab PO DAILY 05/19/16 [History] Potassium Chloride 10 meq PO BID 05/19/16 [History] - Discharge Data Discharge Date: 12/01/16 Discharge Disposition: DC/Tfer W/I Hosp To Swing [facility] Condition: Good - Discharge Diagnosis/Problem(s) (1) COPD with acute lower respiratory infection SNOMED Code(s): 464642973 ICD Code: J44.0 - CHRONIC OBSTRUCTIVE PULMON DISEASE W ACUTE LOWER RESP INFCT Status: Acute Priority: High (2) Acute hemorrhagic cystitis SNOMED Code(s): 30012734 ICD Code: N30.01 - ACUTE CYSTITIS WITH HEMATURIA Status: Acute Priority: High (3) Blood bacterial culture positive SNOMED Code(s): 977722737 ICD Code: R78.81 - BACTEREMIA Status: Acute Priority: High (4) Sepsis SNOMED Code(s): 06179387 ICD Code: A41.9 - SEPSIS, UNSPECIFIED ORGANISM Status: Acute Priority: High Qualifiers: Sepsis type: Escherichia coli Qualified Code(s): A41.51 - Sepsis due to Escherichia coli [E. coli] (5) Superficial venous thrombosis of right upper extremity SNOMED Code(s): 798494549 ICD Code: I82.611 - ACUTE EMBOLISM AND THOMBOS OF SUPERFIC VEINS OF R UP EXTREM Status: Acute (6) Renal insufficiency SNOMED Code(s): 410188325, 556624696 ICD Code: N28.9 - DISORDER OF KIDNEY AND URETER, UNSPECIFIED Status: Resolved Priority: High (7) Elevated white blood cell count SNOMED Code(s): 966209121, 845242708 ICD Code: D72.829 - ELEVATED WHITE BLOOD CELL COUNT, UNSPECIFIED Status: Resolved Priority: High Qualifiers: Leukocytosis type: unspecified Qualified Code(s): D72.829 - Elevated white blood cell count, unspecified (8) Dehydration SNOMED Code(s): 99457335 ICD Code: E86.0 - DEHYDRATION Status: Resolved Priority: High (9) Hyperglycemia due to type 2 diabetes mellitus SNOMED Code(s): 025985586334001, 674450537349166 ICD Code: E11.65 - TYPE 2 DIABETES MELLITUS WITH HYPERGLYCEMIA Status: Acute Priority: High Qualifiers: Diabetes mellitus terminologist insulin use: with usp use Qualified Code( s): E11.65 - Type 2 diabetes mellitus with hyperglycemia; Z79.4 - terminal clerk ( current) use of insulin (10) DNI (do not intubate) SNOMED Code(s): 876342827 ICD Code: Z78.9 - OTHER SPECIFIED HEALTH STATUS Status: Chronic (11) DNR (do not resuscitate) Status: Chronic (12) CHF (congestive heart failure) SNOMED Code(s): 17410958 ICD Code: I50.9 - HEART FAILURE, UNSPECIFIED Status: Chronic Problem Details: mild diastolic; EF >60%; per echo 11/29/2016 Qualifiers: Congestive heart failure chronicity: chronic (13) Hypothyroidism SNOMED Code(s): 24730452 ICD Code: E03.9 - HYPOTHYROIDISM, UNSPECIFIED Status: Chronic Qualifiers: Hypothyroidism type: due to acquired atrophy of thyroid Qualified Code(s): E03.4 - Atrophy of thyroid (acquired) (14) Decreased mobility and endurance SNOMED Code(s): 5750976 ICD Code: Z74.09 - OTHER REDUCED MOBILITY Status: Acute Priority: High (15) Mobilizes using aids SNOMED Code(s): 910592842 ICD Code: Z99.89 - DEPENDENCE ON OTHER ENABLING MACHINES AND DEVICES Status : Chronic (16) Palliative care status SNOMED Code(s): 554010643 ICD Code: Z51.5 - ENCOUNTER FOR PALLIATIVE CARE Status: Acute Priority: High (17) HTN, goal below 140/90 SNOMED Code(s): 60347569 ICD Code: I10 - ESSENTIAL (PRIMARY) HYPERTENSION Status: Chronic (18) Tobacco dependence SNOMED Code(s): 96635468 ICD Code: F17.200 - NICOTINE DEPENDENCE, UNSPECIFIED, UNCOMPLICATED Status : Chronic (19) Hyponatremia SNOMED Code(s): 73918808 ICD Code: E87.1 - HYPO-OSMOLALITY AND HYPONATREMIA Status: Acute (20) IDDM (insulin dependent diabetes mellitus) SNOMED Code(s): 18857659 ICD Code: E11.9 - TYPE 2 DIABETES MELLITUS WITHOUT COMPLICATIONS; Z79.4 - MEAT PULLER (CURRENT) USE OF INSULIN Status: Chronic Priority: High (21) Encounter for removal of peripherally inserted central catheter SNOMED Code(s): 866147309, 089658132 ICD Code: Z45.2 - ENCOUNTER FOR ADJUSTMENT AND MANAGEMENT OF VAD Status: Acute Problem Details: surrounding inflammation continued to flush/blood return but due to inflammation removed fully intact 11/30/16 0030. US 12/01 confirm superficial venous thrombosis along Picc vein prior location roughly 8 cm proximal to distal. (22) S/P PICC central line placement SNOMED Code(s): 096235860, 194222572, 426113118, 930105327 ICD Code: Z95.828 - PRESENCE OF OTHER VASCULAR IMPLANTS AND GRAFTS Status: Resolved Problem Details: 11/29/16 right UE - Patient Summary/Data Complications: superficial venous thrombosis upper extremity secondary to PICC line. Consults: Consultations 11/26/16 08:56 OT Evaluation and Treatment [CONS] Routine Please Evaluate and Treat. OT Reason for Consult: Strengthening This query below is only for informational purposes and is not editable. Admission Diagnosis/Problem: Pneumonia PT Evaluation and Treatment [CONS] Routine Please Evaluate and Treat. PT Reason for Consult: Ambulation This query below is only for informational purposes and is not editable. Admission Diagnosis/Problem: Pneumonia Hospital Course: admitted and being treated for ecoli sepsis due to hemorrhagic cystitis. resulted in bilateral pneumonia, copd exacerbation, dehydration, renal insufficiency, generalized debility and weakness, and chronic comorbidity destabilization. gradual improvement with in all the above with appropriate medical/physical therapies. will fluid resuscitation, had exacerbation of chf with PE and wt gain up to 14# from baseline but resolved. Picc line place for continued iv levaquin to complete two week coarse, but removed last night for increased warmth and tenderness. US confirmed superficial venous thrombosis along picc site. no complication otherwise. no DVT. will treat conservatively and continue IV levoquin with peripheral IV. baseline med changes as noted. increase insulin to home dosing and continue to monitor. she lives independently in her own home out of town and will need continued iv abx management inhouse in setting of numerous comorbidities setting her up for complications. she will continue to need PT/OT as strength and endurance are still not at goal, but improving. medication adjustments well tolerated and she is appropriate for SB at this time. Anticipate stay additional 7-10d with goal of returning home with likely home health 30 days outpt, and close follow up with PCP for med rec update and chronic conditions management. Both pt and daughter agree to above recommendations. debriefed on entire course of cares as well as todays findings, planned management and prognosis. Total Time: 90 min with >50% spent in above assessment, exam, discussion, transfer and coordination of cares. - Patient Instructions Diet: Usual Diet as Tolerated Activity: As Tolerated, Cough & Deep Breathe Showering/Bathing: May Shower Notify Provider of: Fever, Increased Pain, Swelling and Redness, Drainage, Nausea and/or Vomiting - Discharge Plan Home Medications: Home Meds Insulin Glarg,Human.Rec.Analog [Lantus Solostar] 28 unit SUBCUT DAILY 11/30/15 [ History] Levothyroxine Sodium [Synthroid] 75 mcg PO ACBREAKFAST 11/30/15 [History] Losartan [Cozaar] 100 mg PO DAILY 11/30/15 [History] amLODIPine [Norvasc] 10 mg PO DAILY 11/30/15 [History] Albuterol/Ipratropium [DuoNeb 3.0-0.5 MG/3 ML] 1 inh INH DAILY 05/19/16 [History ] Cholecalciferol (Vitamin D3) [Vitamin D3] 1,000 unit PO DAILY 05/19/16 [History] Multivitamin [Multi-Vitamin Daily] 1 tab PO DAILY 05/19/16 [History] Acetaminophen [Tylenol] 650 mg PO Q4H PRN #0 tablet 12/01/16 [Rx] Emollient [Vanicream] 1 applic TOP DAILY #0 jar 12/01/16 [Rx] Insulin Aspart [NovoLOG] 5 unit SUBCUT TIDMEALS pen 12/01/16 [Rx] Potassium Chloride [Klor-Con 10] 10 meq PO BIDMEALS tab.er 12/01/16 [Rx] Furosemide [Lasix] 40 mg PO DAILY #30 tablet 12/07/16 [Rx] Levofloxacin [Levaquin] 750 mg PO Q48H #7 tablet 12/07/16 [Rx] Metoprolol Succinate [Toprol XL] 50 mg PO DAILY #30 tab.er 12/07/16 [Rx] Nicotine [Habitrol] 14 mg TRDERM DAILY #30 patch 12/07/16 [Rx] - Discharge Summary/Plan Comment DC Time >30 min.: Yes - General Info Subjective Update: Feels good today and ready for swing bed. Daughter in room and agrees. Denies concerns other than planned treatment of arm and US results which we discussed. Functional Status: Reports: Pain Controlled, Tolerating Diet, Ambulating, Urinating, Incentive Spirometry - Review of Systems Systems Review Comment: General: Reports: Weakness improving HEENT: Reports: No Symptoms Pulmonary: Reports: Shortness of Breath improving, Cough continues, Sputum ( nonpurulent). Denies: Pleuritic Chest Pain, Hemoptysis, Wheezing Cardiovascular: Reports: Dyspnea on Exertion improving, Edema continues but much improved. Denies: Chest Pain, Palpitations, Orthopnea, Lightheadedness Gastrointestinal: Reports: Flatus, Nausea resolved. Denies: Abdominal Pain, Diarrhea, Hematochezia, Melena (occult negative) Genitourinary: Denies: Dysuria, Incontinence, Hematuria, Flank Pain Musculoskeletal: Reports RUE tenderness and warmth, but improved with ice and elevation.Denies: Leg Pain Skin: Denies: Jaundice, Diaphoresis Neurological: Reports: Weakness. Denies: Dizziness Psychiatric: Reports: Anxiety (mild in the evenings. controlled with prn ativan. ) - Patient Data Vitals - Most Recent: Last Vital Signs Temp 98.0 F 12/01/16 12:00 Pulse 86 12/01/16 15:07 Resp 18 12/01/16 12:00 BP 138/82 12/01/16 12:00 Pulse Ox 94 L 12/01/16 15:07 Wt: Max: +14# :back to dry weight after diuresis. Trend: 68.991kg/70.931kg/72.348kg/68.039kg/66 kg Max Temp: 99.4F on 11/30. Weight - Most Recent: 66.678 kg I&O - Last 24 hours: Intake & Output 12/01/16 12/01/16 12/01/16 06:59 14:59 22:59 Intake Total 300 500 Output Total 1700 800 Balance -1400 -300 Imaging Impressions - Last 24 hrs: see reports and noted. Lab Results - Last 24 hrs: Laboratory Tests 11/25/16 11/25/16 11/25/16 Range/Units 20:40 20:40 20:40 WBC 21.5 H (4.5-12.0) X10-3/uL RBC 3.74 (3.23-5.20) x10(6)uL Hgb 11.6 (11.5-15.5) g/dL Hct 33.8 (30.0-51.3) % MCV 90.4 (80-96) fL MCH 31.1 (27.7-33.6) pg MCHC 34.4 (32.2-35.4) g/dL RDW 11.8 (11.5-15.5) % Plt Count 288 (125-369) X10(3)uL MPV 8.4 (7.4-10.4) fL Neut % (Auto) (46-82) % Lymph % (Auto) (13-37) % [place] % (Auto) (4-12) % Eos % (Auto) (1.0-5.0) % Baso % (Auto) (0-2) % Neut # (Auto) (1.6-8.3) # Lymph # (Auto) (0.6-5.0) # [place] # (Auto) (0.0-1.3) # Eos # (Auto) (0.0-0.8) # Baso # (Auto) (0.0-0.2) # Add Manual Diff Yes Neutrophils % (Manual) 82 (46-82) % Band Neutrophils % 4 (0-6) % Lymphocytes % (Manual) 7 L (13-37) % Monocytes % (Manual) 7 (4-12) % Toxic Granulation (NOT SEEN) PT 10.3 (8.7-11.1) INR 1.02 (0.89-1.13) Sodium 131 L (135-145) mmol/L Potassium 4.3 (3.5-5.3) mmol/L Chloride 99 L D (100-110) mmol/L Carbon Dioxide 23 (23-29) mmol/L BUN 33 H D (8-23) mg/dL Creatinine 1.2 (0.6-1.3) mg/dL Est Cr Clr Drug Dosing TNP Estimated GFR (MDRD) 43 L (>60) BUN/Creatinine Ratio 27.5 H (9-20) Glucose 294 H (80-116) mg/dL POC Glucose (80-116) mg/dL Hemoglobin A1c (4.0-6.0) % Lactic Acid (0.5-2.2) mmol/L Calcium 8.6 (8.6-10.2) mg/dL Total Bilirubin 0.7 (0.1-1.3) mg/dL Direct Bilirubin 0.1 (0.1-0.2) mg/dL AST 22 D (5-27) IU/L ALT 12 L (14-26) IU/L Alkaline Phosphatase 80 (56-112) IU/L Troponin I (0.02-0.06) NG/ML C-Reactive Protein (0.0-1.0) mg/dL B-Natriuretic Peptide (0-100) pg/mL Total Protein 6.8 (6.0-8.0) g/dL Albumin 3.7 (3.2-4.6) g/dL Globulin g/dL Albumin/Globulin Ratio TSH, Ultra Sensitive (0.4-5.5) nlU/mL Urine Color (YELLOW) Urine Appearance (CLEAR) Urine pH (5.0-6.5) Ur Specific [place] (1.010-1.025) Urine Protein (NEGATIVE) mg/dL Urine Glucose (UA) (NEGATIVE) mg/dL Urine Ketones (NEGATIVE) mg/dL Urine Occult Blood (NEGATIVE) Urine Nitrite (NEGATIVE) Urine Bilirubin (NEGATIVE) Urine Urobilinogen (NEGATIVE) mg/dL Ur Leukocyte Esterase (NEGATIVE) Urine RBC (0) Urine WBC (0) Ur Squamous Epith Cells (NS,R,O) Urine Bacteria (NS) 11/25/16 11/25/16 11/25/16 Range/Units 20:40 20:45 20:45 WBC (4.5-12.0) X10-3/uL RBC (3.23-5.20) x10(6)uL Hgb (11.5-15.5) g/dL Hct (30.0-51.3) % MCV (80-96) fL MCH (27.7-33.6) pg MCHC (32.2-35.4) g/dL RDW (11.5-15.5) % Plt Count (125-369) X10(3)uL MPV (7.4-10.4) fL Neut % (Auto) (46-82) % Lymph % (Auto) (13-37) % [place] % (Auto) (4-12) % Eos % (Auto) (1.0-5.0) % Baso % (Auto) (0-2) % Neut # (Auto) (1.6-8.3) # Lymph # (Auto) (0.6-5.0) # [place] # (Auto) (0.0-1.3) # Eos # (Auto) (0.0-0.8) # Baso # (Auto) (0.0-0.2) # Add Manual Diff Neutrophils % (Manual) (46-82) % Band Neutrophils % (0-6) % Lymphocytes % (Manual) (13-37) % Monocytes % (Manual) (4-12) % Toxic Granulation (NOT SEEN) PT (8.7-11.1) INR (0.89-1.13) Sodium (135-145) mmol/L Potassium (3.5-5.3) mmol/L Chloride (100-110) mmol/L Carbon Dioxide (23-29) mmol/L BUN (8-23) mg/dL Creatinine (0.6-1.3) mg/dL Est Cr Clr Drug Dosing Estimated GFR (MDRD) (>60) BUN/Creatinine Ratio (9-20) Glucose (80-116) mg/dL POC Glucose (80-116) mg/dL Hemoglobin A1c (4.0-6.0) % Lactic Acid 1.2 (0.5-2.2) mmol/L Calcium (8.6-10.2) mg/dL Total Bilirubin (0.1-1.3) mg/dL Direct Bilirubin (0.1-0.2) mg/dL AST (5-27) IU/L ALT (14-26) IU/L Alkaline Phosphatase (56-112) IU/L Troponin I < 0.01 L (0.02-0.06) NG/ML C-Reactive Protein (0.0-1.0) mg/dL B-Natriuretic Peptide 124 H (0-100) pg/mL Total Protein (6.0-8.0) g/dL Albumin (3.2-4.6) g/dL Globulin g/dL Albumin/Globulin Ratio TSH, Ultra Sensitive (0.4-5.5) nlU/mL Urine Color (YELLOW) Urine Appearance (CLEAR) Urine pH (5.0-6.5) Ur Specific [place] (1.010-1.025) Urine Protein (NEGATIVE) mg/dL Urine Glucose (UA) (NEGATIVE) mg/dL Urine Ketones (NEGATIVE) mg/dL Urine Occult Blood (NEGATIVE) Urine Nitrite (NEGATIVE) Urine Bilirubin (NEGATIVE) Urine Urobilinogen (NEGATIVE) mg/dL Ur Leukocyte Esterase (NEGATIVE) Urine RBC (0) Urine WBC (0) Ur Squamous Epith Cells (NS,R,O) Urine Bacteria (NS) 11/25/16 11/26/16 11/26/16 Range/Units 21:00 06:06 09:12 WBC (4.5-12.0) X10-3/uL RBC (3.23-5.20) x10(6)uL Hgb (11.5-15.5) g/dL Hct (30.0-51.3) % MCV (80-96) fL MCH (27.7-33.6) pg MCHC (32.2-35.4) g/dL RDW (11.5-15.5) % Plt Count (125-369) X10(3)uL MPV (7.4-10.4) fL Neut % (Auto) (46-82) % Lymph % (Auto) (13-37) % [place] % (Auto) (4-12) % Eos % (Auto) (1.0-5.0) % Baso % (Auto) (0-2) % Neut # (Auto) (1.6-8.3) # Lymph # (Auto) (0.6-5.0) # [place] # (Auto) (0.0-1.3) # Eos # (Auto) (0.0-0.8) # Baso # (Auto) (0.0-0.2) # Add Manual Diff Neutrophils % (Manual) (46-82) % Band Neutrophils % (0-6) % Lymphocytes % (Manual) (13-37) % Monocytes % (Manual) (4-12) % Toxic Granulation (NOT SEEN) PT (8.7-11.1) INR (0.89-1.13) Sodium 130 L (135-145) mmol/L Potassium 5.1 (3.5-5.3) mmol/L Chloride 98 L (100-110) mmol/L Carbon Dioxide 25 (23-29) mmol/L BUN 36 H (8-23) mg/dL Creatinine 1.4 H (0.6-1.3) mg/dL Est Cr Clr Drug Dosing 23.86 Estimated GFR (MDRD) 36 L (>60) BUN/Creatinine Ratio 25.7 H (9-20) Glucose 419 H* D (80-116) mg/dL POC Glucose 286 H D (80-116) mg/dL Hemoglobin A1c (4.0-6.0) % Lactic Acid (0.5-2.2) mmol/L Calcium 8.2 L (8.6-10.2) mg/dL Total Bilirubin (0.1-1.3) mg/dL Direct Bilirubin (0.1-0.2) mg/dL AST (5-27) IU/L ALT (14-26) IU/L Alkaline Phosphatase (56-112) IU/L Troponin I (0.02-0.06) NG/ML C-Reactive Protein (0.0-1.0) mg/dL B-Natriuretic Peptide (0-100) pg/mL Total Protein (6.0-8.0) g/dL Albumin (3.2-4.6) g/dL Globulin g/dL Albumin/Globulin Ratio TSH, Ultra Sensitive (0.4-5.5) nlU/mL Urine Color Yellow (YELLOW) Urine Appearance Clear (CLEAR) Urine pH 5.0 (5.0-6.5) Ur Specific [place] 1.015 (1.010-1.025) Urine Protein Trace (NEGATIVE) mg/dL Urine Glucose (UA) 250 H (NEGATIVE) mg/dL Urine Ketones Negative (NEGATIVE) mg/dL Urine Occult Blood Moderate H (NEGATIVE) Urine Nitrite Negative (NEGATIVE) Urine Bilirubin Negative (NEGATIVE) Urine Urobilinogen Normal (NEGATIVE) mg/dL Ur Leukocyte Esterase Large H (NEGATIVE) Urine RBC 5-10 (0) Urine WBC 10-20 H (0) Ur Squamous Epith Cells Few H (NS,R,O) Urine Bacteria Moderate H (NS) 11/26/16 11/26/16 11/26/16 Range/Units 09:12 09:12 09:12 WBC 25.7 H (4.5-12.0) X10-3/uL RBC 3.41 (3.23-5.20) x10(6)uL Hgb 10.9 L (11.5-15.5) g/dL Hct 30.9 (30.0-51.3) % MCV 90.7 (80-96) fL MCH 31.9 (27.7-33.6) pg MCHC 35.2 (32.2-35.4) g/dL RDW 12.0 (11.5-15.5) % Plt Count 238 (125-369) X10(3)uL MPV (7.4-10.4) fL Neut % (Auto) (46-82) % Lymph % (Auto) (13-37) % [place] % (Auto) (4-12) % Eos % (Auto) (1.0-5.0) % Baso % (Auto) (0-2) % Neut # (Auto) (1.6-8.3) # Lymph # (Auto) (0.6-5.0) # [place] # (Auto) (0.0-1.3) # Eos # (Auto) (0.0-0.8) # Baso # (Auto) (0.0-0.2) # Add Manual Diff Neutrophils % (Manual) (46-82) % Band Neutrophils % (0-6) % Lymphocytes % (Manual) (13-37) % Monocytes % (Manual) (4-12) % Toxic Granulation (NOT SEEN) PT (8.7-11.1) INR (0.89-1.13) Sodium (135-145) mmol/L Potassium (3.5-5.3) mmol/L Chloride (100-110) mmol/L Carbon Dioxide (23-29) mmol/L BUN (8-23) mg/dL Creatinine (0.6-1.3) mg/dL Est Cr Clr Drug Dosing Estimated GFR (MDRD) (>60) BUN/Creatinine Ratio (9-20) Glucose (80-116) mg/dL POC Glucose (80-116) mg/dL Hemoglobin A1c 7.6 H (4.0-6.0) % Lactic Acid (0.5-2.2) mmol/L Calcium (8.6-10.2) mg/dL Total Bilirubin (0.1-1.3) mg/dL Direct Bilirubin (0.1-0.2) mg/dL AST (5-27) IU/L ALT (14-26) IU/L Alkaline Phosphatase (56-112) IU/L Troponin I (0.02-0.06) NG/ML C-Reactive Protein (0.0-1.0) mg/dL B-Natriuretic Peptide (0-100) pg/mL Total Protein (6.0-8.0) g/dL Albumin (3.2-4.6) g/dL Globulin g/dL Albumin/Globulin Ratio TSH, Ultra Sensitive 0.62 (0.4-5.5) nlU/mL Urine Color (YELLOW) Urine Appearance (CLEAR) Urine pH (5.0-6.5) Ur Specific [place] (1.010-1.025) Urine Protein (NEGATIVE) mg/dL Urine Glucose (UA) (NEGATIVE) mg/dL Urine Ketones (NEGATIVE) mg/dL Urine Occult Blood (NEGATIVE) Urine Nitrite (NEGATIVE) Urine Bilirubin (NEGATIVE) Urine Urobilinogen (NEGATIVE) mg/dL Ur Leukocyte Esterase (NEGATIVE) Urine RBC (0) Urine WBC (0) Ur Squamous Epith Cells (NS,R,O) Urine Bacteria (NS) 11/26/16 11/26/16 11/26/16 Range/Units 09:12 09:12 11:39 WBC (4.5-12.0) X10-3/uL RBC (3.23-5.20) x10(6)uL Hgb (11.5-15.5) g/dL Hct (30.0-51.3) % MCV (80-96) fL MCH (27.7-33.6) pg MCHC (32.2-35.4) g/dL RDW (11.5-15.5) % Plt Count (125-369) X10(3)uL MPV (7.4-10.4) fL Neut % (Auto) (46-82) % Lymph % (Auto) (13-37) % [place] % (Auto) (4-12) % Eos % (Auto) (1.0-5.0) % Baso % (Auto) (0-2) % Neut # (Auto) (1.6-8.3) # Lymph # (Auto) (0.6-5.0) # [place] # (Auto) (0.0-1.3) # Eos # (Auto) (0.0-0.8) # Baso # (Auto) (0.0-0.2) # Add Manual Diff Neutrophils % (Manual) (46-82) % Band Neutrophils % (0-6) % Lymphocytes % (Manual) (13-37) % Monocytes % (Manual) (4-12) % Toxic Granulation (NOT SEEN) PT (8.7-11.1) INR (0.89-1.13) Sodium (135-145) mmol/L Potassium (3.5-5.3) mmol/L Chloride (100-110) mmol/L Carbon Dioxide (23-29) mmol/L BUN (8-23) mg/dL Creatinine (0.6-1.3) mg/dL Est Cr Clr Drug Dosing Estimated GFR (MDRD) (>60) BUN/Creatinine Ratio (9-20) Glucose (80-116) mg/dL POC Glucose 334 H (80-116) mg/dL Hemoglobin A1c (4.0-6.0) % Lactic Acid (0.5-2.2) mmol/L Calcium (8.6-10.2) mg/dL Total Bilirubin (0.1-1.3) mg/dL Direct Bilirubin (0.1-0.2) mg/dL AST (5-27) IU/L ALT (14-26) IU/L Alkaline Phosphatase (56-112) IU/L Troponin I < 0.01 L (0.02-0.06) NG/ML C-Reactive Protein 15.3 H* (0.0-1.0) mg/dL B-Natriuretic Peptide (0-100) pg/mL Total Protein (6.0-8.0) g/dL Albumin (3.2-4.6) g/dL Globulin g/dL Albumin/Globulin Ratio TSH, Ultra Sensitive (0.4-5.5) nlU/mL Urine Color (YELLOW) Urine Appearance (CLEAR) Urine pH (5.0-6.5) Ur Specific [place] (1.010-1.025) Urine Protein (NEGATIVE) mg/dL Urine Glucose (UA) (NEGATIVE) mg/dL Urine Ketones (NEGATIVE) mg/dL Urine Occult Blood (NEGATIVE) Urine Nitrite (NEGATIVE) Urine Bilirubin (NEGATIVE) Urine Urobilinogen (NEGATIVE) mg/dL Ur Leukocyte Esterase (NEGATIVE) Urine RBC (0) Urine WBC (0) Ur Squamous Epith Cells (NS,R,O) Urine Bacteria (NS) 11/26/16 11/26/16 11/26/16 Range/Units 15:22 17:09 20:19 WBC (4.5-12.0) X10-3/uL RBC (3.23-5.20) x10(6)uL Hgb (11.5-15.5) g/dL Hct (30.0-51.3) % MCV (80-96) fL MCH (27.7-33.6) pg MCHC (32.2-35.4) g/dL RDW (11.5-15.5) % Plt Count (125-369) X10(3)uL MPV (7.4-10.4) fL Neut % (Auto) (46-82) % Lymph % (Auto) (13-37) % [place] % (Auto) (4-12) % Eos % (Auto) (1.0-5.0) % Baso % (Auto) (0-2) % Neut # (Auto) (1.6-8.3) # Lymph # (Auto) (0.6-5.0) # [place] # (Auto) (0.0-1.3) # Eos # (Auto) (0.0-0.8) # Baso # (Auto) (0.0-0.2) # Add Manual Diff Neutrophils % (Manual) (46-82) % Band Neutrophils % (0-6) % Lymphocytes % (Manual) (13-37) % Monocytes % (Manual) (4-12) % Toxic Granulation (NOT SEEN) PT (8.7-11.1) INR (0.89-1.13) Sodium (135-145) mmol/L Potassium (3.5-5.3) mmol/L Chloride (100-110) mmol/L Carbon Dioxide (23-29) mmol/L BUN (8-23) mg/dL Creatinine (0.6-1.3) mg/dL Est Cr Clr Drug Dosing Estimated GFR (MDRD) (>60) BUN/Creatinine Ratio (9-20) Glucose (80-116) mg/dL POC Glucose 267 H 205 H 290 H D (80-116) mg/dL Hemoglobin A1c (4.0-6.0) % Lactic Acid (0.5-2.2) mmol/L Calcium (8.6-10.2) mg/dL Total Bilirubin (0.1-1.3) mg/dL Direct Bilirubin (0.1-0.2) mg/dL AST (5-27) IU/L ALT (14-26) IU/L Alkaline Phosphatase (56-112) IU/L Troponin I (0.02-0.06) NG/ML C-Reactive Protein (0.0-1.0) mg/dL B-Natriuretic Peptide (0-100) pg/mL Total Protein (6.0-8.0) g/dL Albumin (3.2-4.6) g/dL Globulin g/dL Albumin/Globulin Ratio TSH, Ultra Sensitive (0.4-5.5) nlU/mL Urine Color (YELLOW) Urine Appearance (CLEAR) Urine pH (5.0-6.5) Ur Specific [place] (1.010-1.025) Urine Protein (NEGATIVE) mg/dL Urine Glucose (UA) (NEGATIVE) mg/dL Urine Ketones (NEGATIVE) mg/dL Urine Occult Blood (NEGATIVE) Urine Nitrite (NEGATIVE) Urine Bilirubin (NEGATIVE) Urine Urobilinogen (NEGATIVE) mg/dL Ur Leukocyte Esterase (NEGATIVE) Urine RBC (0) Urine WBC (0) Ur Squamous Epith Cells (NS,R,O) Urine Bacteria (NS) 11/27/16 11/27/16 11/27/16 Range/Units 06:28 06:28 06:51 WBC 16.6 H (4.5-12.0) X10-3/uL RBC 3.19 L (3.23-5.20) x10(6)uL Hgb 9.7 L (11.5-15.5) g/dL Hct 28.9 L (30.0-51.3) % MCV 90.6 (80-96) fL MCH 30.4 (27.7-33.6) pg MCHC 33.5 (32.2-35.4) g/dL RDW 12.0 (11.5-15.5) % Plt Count 215 (125-369) X10(3)uL MPV 8.8 (7.4-10.4) fL Neut % (Auto) (46-82) % Lymph % (Auto) (13-37) % [place] % (Auto) (4-12) % Eos % (Auto) (1.0-5.0) % Baso % (Auto) (0-2) % Neut # (Auto) (1.6-8.3) # Lymph # (Auto) (0.6-5.0) # [place] # (Auto) (0.0-1.3) # Eos # (Auto) (0.0-0.8) # Baso # (Auto) (0.0-0.2) # Add Manual Diff Yes Neutrophils % (Manual) 84 H (46-82) % Band Neutrophils % 1 (0-6) % Lymphocytes % (Manual) 11 L (13-37) % Monocytes % (Manual) 4 (4-12) % Toxic Granulation Few H (NOT SEEN) PT (8.7-11.1) INR (0.89-1.13) Sodium 128 L (135-145) mmol/L Potassium 4.1 D (3.5-5.3) mmol/L Chloride 100 (100-110) mmol/L Carbon Dioxide 22 L (23-29) mmol/L BUN 36 H (8-23) mg/dL Creatinine 1.4 H (0.6-1.3) mg/dL Est Cr Clr Drug Dosing 23.86 Estimated GFR (MDRD) 36 L (>60) BUN/Creatinine Ratio 25.7 H (9-20) Glucose 123 H D (80-116) mg/dL POC Glucose 114 D (80-116) mg/dL Hemoglobin A1c (4.0-6.0) % Lactic Acid (0.5-2.2) mmol/L Calcium 7.7 L (8.6-10.2) mg/dL Total Bilirubin 0.7 (0.1-1.3) mg/dL Direct Bilirubin (0.1-0.2) mg/dL AST 32 H D (5-27) IU/L ALT 17 D (14-26) IU/L Alkaline Phosphatase 70 (56-112) IU/L Troponin I (0.02-0.06) NG/ML C-Reactive Protein (0.0-1.0) mg/dL B-Natriuretic Peptide (0-100) pg/mL Total Protein 5.8 L (6.0-8.0) g/dL Albumin 2.9 L (3.2-4.6) g/dL Globulin 2.9 g/dL Albumin/Globulin Ratio 1.0 TSH, Ultra Sensitive (0.4-5.5) nlU/mL Urine Color (YELLOW) Urine Appearance (CLEAR) Urine pH (5.0-6.5) Ur Specific [place] (1.010-1.025) Urine Protein (NEGATIVE) mg/dL Urine Glucose (UA) (NEGATIVE) mg/dL Urine Ketones (NEGATIVE) mg/dL Urine Occult Blood (NEGATIVE) Urine Nitrite (NEGATIVE) Urine Bilirubin (NEGATIVE) Urine Urobilinogen (NEGATIVE) mg/dL Ur Leukocyte Esterase (NEGATIVE) Urine RBC (0) Urine WBC (0) Ur Squamous Epith Cells (NS,R,O) Urine Bacteria (NS) 0611/27/16 11/27/16 Range/Units 11:44 17:46 20:44 WBC (4.5-12.0) X10-3/uL RBC (3.23-5.20) x10(6)uL Hgb (11.5-15.5) g/dL Hct (30.0-51.3) % MCV (80-96) fL MCH (27.7-33.6) pg MCHC (32.2-35.4) g/dL RDW (11.5-15.5) % Plt Count (125-369) X10(3)uL MPV (7.4-10.4) fL Neut % (Auto) (46-82) % Lymph % (Auto) (13-37) % [place] % (Auto) (4-12) % Eos % (Auto) (1.0-5.0) % Baso % (Auto) (0-2) % Neut # (Auto) (1.6-8.3) # Lymph # (Auto) (0.6-5.0) # [place] # (Auto) (0.0-1.3) # Eos # (Auto) (0.0-0.8) # Baso # (Auto) (0.0-0.2) # Add Manual Diff Neutrophils % (Manual) (46-82) % Band Neutrophils % (0-6) % Lymphocytes % (Manual) (13-37) % Monocytes % (Manual) (4-12) % Toxic Granulation (NOT SEEN) PT (8.7-11.1) INR (0.89-1.13) Sodium (135-145) mmol/L Potassium (3.5-5.3) mmol/L Chloride (100-110) mmol/L Carbon Dioxide (23-29) mmol/L BUN (8-23) mg/dL Creatinine (0.6-1.3) mg/dL Est Cr Clr Drug Dosing Estimated GFR (MDRD) (>60) BUN/Creatinine Ratio (9-20) Glucose (80-116) mg/dL POC Glucose 181 H 117 H 103 (80-116) mg/dL Hemoglobin A1c (4.0-6.0) % Lactic Acid (0.5-2.2) mmol/L Calcium (8.6-10.2) mg/dL Total Bilirubin (0.1-1.3) mg/dL Direct Bilirubin (0.1-0.2) mg/dL AST (5-27) IU/L ALT (14-26) IU/L Alkaline Phosphatase (56-112) IU/L Troponin I (0.02-0.06) NG/ML C-Reactive Protein (0.0-1.0) mg/dL B-Natriuretic Peptide (0-100) pg/mL Total Protein (6.0-8.0) g/dL Albumin (3.2-4.6) g/dL Globulin g/dL Albumin/Globulin Ratio TSH, Ultra Sensitive (0.4-5.5) nlU/mL Urine Color (YELLOW) Urine Appearance (CLEAR) Urine pH (5.0-6.5) Ur Specific [place] (1.010-1.025) Urine Protein (NEGATIVE) mg/dL Urine Glucose (UA) (NEGATIVE) mg/dL Urine Ketones (NEGATIVE) mg/dL Urine Occult Blood (NEGATIVE) Urine Nitrite (NEGATIVE) Urine Bilirubin (NEGATIVE) Urine Urobilinogen (NEGATIVE) mg/dL Ur Leukocyte Esterase (NEGATIVE) Urine RBC (0) Urine WBC (0) Ur Squamous Epith Cells (NS,R,O) Urine Bacteria (NS) 11/28/16 11/28/16 11/28/16 Range/Units 06:00 06:30 06:30 WBC 14.3 H (4.5-12.0) X10-3/uL RBC 3.45 (3.23-5.20) x10(6)uL Hgb 10.6 L (11.5-15.5) g/dL Hct 31.3 (30.0-51.3) % MCV 90.7 (80-96) fL MCH 30.7 (27.7-33.6) pg MCHC 33.9 (32.2-35.4) g/dL RDW 12.0 (11.5-15.5) % Plt Count 233 (125-369) X10(3)uL MPV 9.1 (7.4-10.4) fL Neut % (Auto) (46-82) % Lymph % (Auto) (13-37) % [place] % (Auto) (4-12) % Eos % (Auto) (1.0-5.0) % Baso % (Auto) (0-2) % Neut # (Auto) (1.6-8.3) # Lymph # (Auto) (0.6-5.0) # [place] # (Auto) (0.0-1.3) # Eos # (Auto) (0.0-0.8) # Baso # (Auto) (0.0-0.2) # Add Manual Diff Yes Neutrophils % (Manual) 81 (46-82) % Band Neutrophils % 1 (0-6) % Lymphocytes % (Manual) 12 L (13-37) % Monocytes % (Manual) 6 (4-12) % Toxic Granulation Occasional (NOT SEEN) PT (8.7-11.1) INR (0.89-1.13) Sodium 130 L (135-145) mmol/L Potassium 3.8 (3.5-5.3) mmol/L Chloride 100 (100-110) mmol/L Carbon Dioxide 21 L (23-29) mmol/L BUN 21 D (8-23) mg/dL Creatinine 1.0 (0.6-1.3) mg/dL Est Cr Clr Drug Dosing 33.41 Estimated GFR (MDRD) 53 L (>60) BUN/Creatinine Ratio 21.0 H (9-20) Glucose 100 (80-116) mg/dL POC Glucose 79 L (80-116) mg/dL Hemoglobin A1c (4.0-6.0) % Lactic Acid (0.5-2.2) mmol/L Calcium 7.9 L (8.6-10.2) mg/dL Total Bilirubin 0.2 (0.1-1.3) mg/dL Direct Bilirubin (0.1-0.2) mg/dL AST 37 H D (5-27) IU/L ALT 18 (14-26) IU/L Alkaline Phosphatase 76 (56-112) IU/L Troponin I (0.02-0.06) NG/ML C-Reactive Protein 9.0 H* (0.0-1.0) mg/dL B-Natriuretic Peptide (0-100) pg/mL Total Protein 6.4 (6.0-8.0) g/dL Albumin 3.5 (3.2-4.6) g/dL Globulin 2.9 g/dL Albumin/Globulin Ratio 1.2 TSH, Ultra Sensitive (0.4-5.5) nlU/mL Urine Color (YELLOW) Urine Appearance (CLEAR) Urine pH (5.0-6.5) Ur Specific [place] (1.010-1.025) Urine Protein (NEGATIVE) mg/dL Urine Glucose (UA) (NEGATIVE) mg/dL Urine Ketones (NEGATIVE) mg/dL Urine Occult Blood (NEGATIVE) Urine Nitrite (NEGATIVE) Urine Bilirubin (NEGATIVE) Urine Urobilinogen (NEGATIVE) mg/dL Ur Leukocyte Esterase (NEGATIVE) Urine RBC (0) Urine WBC (0) Ur Squamous Epith Cells (NS,R,O) Urine Bacteria (NS) 11/28/16 11/28/16 11/28/16 Range/Units 06:30 06:30 11:27 WBC (4.5-12.0) X10-3/uL RBC (3.23-5.20) x10(6)uL Hgb (11.5-15.5) g/dL Hct (30.0-51.3) % MCV (80-96) fL MCH (27.7-33.6) pg MCHC (32.2-35.4) g/dL RDW (11.5-15.5) % Plt Count (125-369) X10(3)uL MPV (7.4-10.4) fL Neut % (Auto) (46-82) % Lymph % (Auto) (13-37) % [place] % (Auto) (4-12) % Eos % (Auto) (1.0-5.0) % Baso % (Auto) (0-2) % Neut # (Auto) (1.6-8.3) # Lymph # (Auto) (0.6-5.0) # [place] # (Auto) (0.0-1.3) # Eos # (Auto) (0.0-0.8) # Baso # (Auto) (0.0-0.2) # Add Manual Diff Neutrophils % (Manual) (46-82) % Band Neutrophils % (0-6) % Lymphocytes % (Manual) (13-37) % Monocytes % (Manual) (4-12) % Toxic Granulation (NOT SEEN) PT (8.7-11.1) INR (0.89-1.13) Sodium (135-145) mmol/L Potassium (3.5-5.3) mmol/L Chloride (100-110) mmol/L Carbon Dioxide (23-29) mmol/L BUN (8-23) mg/dL Creatinine (0.6-1.3) mg/dL Est Cr Clr Drug Dosing Estimated GFR (MDRD) (>60) BUN/Creatinine Ratio (9-20) Glucose (80-116) mg/dL POC Glucose 341 H D (80-116) mg/dL Hemoglobin A1c (4.0-6.0) % Lactic Acid 0.9 (0.5-2.2) mmol/L Calcium (8.6-10.2) mg/dL Total Bilirubin (0.1-1.3) mg/dL Direct Bilirubin (0.1-0.2) mg/dL AST (5-27) IU/L ALT (14-26) IU/L Alkaline Phosphatase (56-112) IU/L Troponin I (0.02-0.06) NG/ML C-Reactive Protein (0.0-1.0) mg/dL B-Natriuretic Peptide 444 H (0-100) pg/mL Total Protein (6.0-8.0) g/dL Albumin (3.2-4.6) g/dL Globulin g/dL Albumin/Globulin Ratio TSH, Ultra Sensitive (0.4-5.5) nlU/mL Urine Color (YELLOW) Urine Appearance (CLEAR) Urine pH (5.0-6.5) Ur Specific [place] (1.010-1.025) Urine Protein (NEGATIVE) mg/dL Urine Glucose (UA) (NEGATIVE) mg/dL Urine Ketones (NEGATIVE) mg/dL Urine Occult Blood (NEGATIVE) Urine Nitrite (NEGATIVE) Urine Bilirubin (NEGATIVE) Urine Urobilinogen (NEGATIVE) mg/dL Ur Leukocyte Esterase (NEGATIVE) Urine RBC (0) Urine WBC (0) Ur Squamous Epith Cells (NS,R,O) Urine Bacteria (NS) 11/28/16 11/28/16 11/28/16 Range/Units 18:30 20:23 20:40 WBC 13.5 H (4.5-12.0) X10-3/uL RBC 3.52 (3.23-5.20) x10(6)uL Hgb 10.9 L (11.5-15.5) g/dL Hct 31.7 (30.0-51.3) % MCV 90.0 (80-96) fL MCH 30.9 (27.7-33.6) pg MCHC 34.3 (32.2-35.4) g/dL RDW 11.9 (11.5-15.5) % Plt Count 285 (125-369) X10(3)uL MPV 8.6 (7.4-10.4) fL Neut % (Auto) 83.7 H (46-82) % Lymph % (Auto) 10.1 L (13-37) % [place] % (Auto) 5.7 (4-12) % Eos % (Auto) 0 L (1.0-5.0) % Baso % (Auto) 0 (0-2) % Neut # (Auto) 11.2 H (1.6-8.3) # Lymph # (Auto) 1.4 (0.6-5.0) # [place] # (Auto) 0.8 (0.0-1.3) # Eos # (Auto) 0.0 (0.0-0.8) # Baso # (Auto) 0.1 (0.0-0.2) # Add Manual Diff Neutrophils % (Manual) (46-82) % Band Neutrophils % (0-6) % Lymphocytes % (Manual) (13-37) % Monocytes % (Manual) (4-12) % Toxic Granulation (NOT SEEN) PT (8.7-11.1) INR (0.89-1.13) Sodium (135-145) mmol/L Potassium (3.5-5.3) mmol/L Chloride (100-110) mmol/L Carbon Dioxide (23-29) mmol/L BUN (8-23) mg/dL Creatinine (0.6-1.3) mg/dL Est Cr Clr Drug Dosing Estimated GFR (MDRD) (>60) BUN/Creatinine Ratio (9-20) Glucose (80-116) mg/dL POC Glucose 271 H 226 H (80-116) mg/dL Hemoglobin A1c (4.0-6.0) % Lactic Acid (0.5-2.2) mmol/L Calcium (8.6-10.2) mg/dL Total Bilirubin (0.1-1.3) mg/dL Direct Bilirubin (0.1-0.2) mg/dL AST (5-27) IU/L ALT (14-26) IU/L Alkaline Phosphatase (56-112) IU/L Troponin I (0.02-0.06) NG/ML C-Reactive Protein (0.0-1.0) mg/dL B-Natriuretic Peptide (0-100) pg/mL Total Protein (6.0-8.0) g/dL Albumin (3.2-4.6) g/dL Globulin g/dL Albumin/Globulin Ratio TSH, Ultra Sensitive (0.4-5.5) nlU/mL Urine Color (YELLOW) Urine Appearance (CLEAR) Urine pH (5.0-6.5) Ur Specific [place] (1.010-1.025) Urine Protein (NEGATIVE) mg/dL Urine Glucose (UA) (NEGATIVE) mg/dL Urine Ketones (NEGATIVE) mg/dL Urine Occult Blood (NEGATIVE) Urine Nitrite (NEGATIVE) Urine Bilirubin (NEGATIVE) Urine Urobilinogen (NEGATIVE) mg/dL Ur Leukocyte Esterase (NEGATIVE) Urine RBC (0) Urine WBC (0) Ur Squamous Epith Cells (NS,R,O) Urine Bacteria (NS) 11/28/16 11/28/16 11/29/16 Range/Units 20:40 20:40 06:20 WBC 14.1 H (4.5-12.0) X10-3/uL RBC 3.48 (3.23-5.20) x10(6)uL Hgb 10.7 L (11.5-15.5) g/dL Hct 31.4 (30.0-51.3) % MCV 90.2 (80-96) fL MCH 30.6 (27.7-33.6) pg MCHC 34.0 (32.2-35.4) g/dL RDW 11.9 (11.5-15.5) % Plt Count 267 (125-369) X10(3)uL MPV 9.0 (7.4-10.4) fL Neut % (Auto) (46-82) % Lymph % (Auto) (13-37) % [place] % (Auto) (4-12) % Eos % (Auto) (1.0-5.0) % Baso % (Auto) (0-2) % Neut # (Auto) (1.6-8.3) # Lymph # (Auto) (0.6-5.0) # [place] # (Auto) (0.0-1.3) # Eos # (Auto) (0.0-0.8) # Baso # (Auto) (0.0-0.2) # Add Manual Diff Yes Neutrophils % (Manual) 76 (46-82) % Band Neutrophils % (0-6) % Lymphocytes % (Manual) 18 (13-37) % Monocytes % (Manual) 6 (4-12) % Toxic Granulation (NOT SEEN) PT (8.7-11.1) INR (0.89-1.13) Sodium 133 L (135-145) mmol/L Potassium 3.8 (3.5-5.3) mmol/L Chloride 102 (100-110) mmol/L Carbon Dioxide 23 (23-29) mmol/L BUN 14 (8-23) mg/dL Creatinine 0.9 (0.6-1.3) mg/dL Est Cr Clr Drug Dosing 37.12 Estimated GFR (MDRD) 59 L (>60) BUN/Creatinine Ratio 15.6 (9-20) Glucose 240 H D (80-116) mg/dL POC Glucose (80-116) mg/dL Hemoglobin A1c (4.0-6.0) % Lactic Acid (0.5-2.2) mmol/L Calcium 8.1 L (8.6-10.2) mg/dL Total Bilirubin (0.1-1.3) mg/dL Direct Bilirubin (0.1-0.2) mg/dL AST (5-27) IU/L ALT (14-26) IU/L Alkaline Phosphatase (56-112) IU/L Troponin I (0.02-0.06) NG/ML C-Reactive Protein (0.0-1.0) mg/dL B-Natriuretic Peptide 569 H (0-100) pg/mL Total Protein (6.0-8.0) g/dL Albumin (3.2-4.6) g/dL Globulin g/dL Albumin/Globulin Ratio TSH, Ultra Sensitive (0.4-5.5) nlU/mL Urine Color (YELLOW) Urine Appearance (CLEAR) Urine pH (5.0-6.5) Ur Specific [place] (1.010-1.025) Urine Protein (NEGATIVE) mg/dL Urine Glucose (UA) (NEGATIVE) mg/dL Urine Ketones (NEGATIVE) mg/dL Urine Occult Blood (NEGATIVE) Urine Nitrite (NEGATIVE) Urine Bilirubin (NEGATIVE) Urine Urobilinogen (NEGATIVE) mg/dL Ur Leukocyte Esterase (NEGATIVE) Urine RBC (0) Urine WBC (0) Ur Squamous Epith Cells (NS,R,O) Urine Bacteria (NS) 11/29/16 11/29/16 11/29/16 Range/Units 06:20 06:29 09:56 WBC (4.5-12.0) X10-3/uL RBC (3.23-5.20) x10(6)uL Hgb (11.5-15.5) g/dL Hct (30.0-51.3) % MCV (80-96) fL MCH (27.7-33.6) pg MCHC (32.2-35.4) g/dL RDW (11.5-15.5) % Plt Count (125-369) X10(3)uL MPV (7.4-10.4) fL Neut % (Auto) (46-82) % Lymph % (Auto) (13-37) % [place] % (Auto) (4-12) % Eos % (Auto) (1.0-5.0) % Baso % (Auto) (0-2) % Neut # (Auto) (1.6-8.3) # Lymph # (Auto) (0.6-5.0) # [place] # (Auto) (0.0-1.3) # Eos # (Auto) (0.0-0.8) # Baso # (Auto) (0.0-0.2) # Add Manual Diff Neutrophils % (Manual) (46-82) % Band Neutrophils % (0-6) % Lymphocytes % (Manual) (13-37) % Monocytes % (Manual) (4-12) % Toxic Granulation (NOT SEEN) PT (8.7-11.1) INR (0.89-1.13) Sodium 134 L (135-145) mmol/L Potassium 3.6 (3.5-5.3) mmol/L Chloride 104 (100-110) mmol/L Carbon Dioxide 22 L (23-29) mmol/L BUN 13 (8-23) mg/dL Creatinine 0.9 (0.6-1.3) mg/dL Est Cr Clr Drug Dosing 37.12 Estimated GFR (MDRD) 59 L (>60) BUN/Creatinine Ratio 14.4 (9-20) Glucose 107 D (80-116) mg/dL POC Glucose 98 D 62 L (80-116) mg/dL Hemoglobin A1c (4.0-6.0) % Lactic Acid (0.5-2.2) mmol/L Calcium 8.0 L (8.6-10.2) mg/dL Total Bilirubin (0.1-1.3) mg/dL Direct Bilirubin (0.1-0.2) mg/dL AST (5-27) IU/L ALT (14-26) IU/L Alkaline Phosphatase (56-112) IU/L Troponin I (0.02-0.06) NG/ML C-Reactive Protein (0.0-1.0) mg/dL B-Natriuretic Peptide (0-100) pg/mL Total Protein (6.0-8.0) g/dL Albumin (3.2-4.6) g/dL Globulin g/dL Albumin/Globulin Ratio TSH, Ultra Sensitive (0.4-5.5) nlU/mL Urine Color (YELLOW) Urine Appearance (CLEAR) Urine pH (5.0-6.5) Ur Specific [place] (1.010-1.025) Urine Protein (NEGATIVE) mg/dL Urine Glucose (UA) (NEGATIVE) mg/dL Urine Ketones (NEGATIVE) mg/dL Urine Occult Blood (NEGATIVE) Urine Nitrite (NEGATIVE) Urine Bilirubin (NEGATIVE) Urine Urobilinogen (NEGATIVE) mg/dL Ur Leukocyte Esterase (NEGATIVE) Urine RBC (0) Urine WBC (0) Ur Squamous Epith Cells (NS,R,O) Urine Bacteria (NS) 11/29/16 11/29/16 11/29/16 Range/Units 13:11 17:19 20:17 WBC (4.5-12.0) X10-3/uL RBC (3.23-5.20) x10(6)uL Hgb (11.5-15.5) g/dL Hct (30.0-51.3) % MCV (80-96) fL MCH (27.7-33.6) pg MCHC (32.2-35.4) g/dL RDW (11.5-15.5) % Plt Count (125-369) X10(3)uL MPV (7.4-10.4) fL Neut % (Auto) (46-82) % Lymph % (Auto) (13-37) % [place] % (Auto) (4-12) % Eos % (Auto) (1.0-5.0) % Baso % (Auto) (0-2) % Neut # (Auto) (1.6-8.3) # Lymph # (Auto) (0.6-5.0) # [place] # (Auto) (0.0-1.3) # Eos # (Auto) (0.0-0.8) # Baso # (Auto) (0.0-0.2) # Add Manual Diff Neutrophils % (Manual) (46-82) % Band Neutrophils % (0-6) % Lymphocytes % (Manual) (13-37) % Monocytes % (Manual) (4-12) % Toxic Granulation (NOT SEEN) PT (8.7-11.1) INR (0.89-1.13) Sodium (135-145) mmol/L Potassium (3.5-5.3) mmol/L Chloride (100-110) mmol/L Carbon Dioxide (23-29) mmol/L BUN (8-23) mg/dL Creatinine (0.6-1.3) mg/dL Est Cr Clr Drug Dosing Estimated GFR (MDRD) (>60) BUN/Creatinine Ratio (9-20) Glucose (80-116) mg/dL POC Glucose 157 H D 205 H 64 L D (80-116) mg/dL Hemoglobin A1c (4.0-6.0) % Lactic Acid (0.5-2.2) mmol/L Calcium (8.6-10.2) mg/dL Total Bilirubin (0.1-1.3) mg/dL Direct Bilirubin (0.1-0.2) mg/dL AST (5-27) IU/L ALT (14-26) IU/L Alkaline Phosphatase (56-112) IU/L Troponin I (0.02-0.06) NG/ML C-Reactive Protein (0.0-1.0) mg/dL B-Natriuretic Peptide (0-100) pg/mL Total Protein (6.0-8.0) g/dL Albumin (3.2-4.6) g/dL Globulin g/dL Albumin/Globulin Ratio TSH, Ultra Sensitive (0.4-5.5) nlU/mL Urine Color (YELLOW) Urine Appearance (CLEAR) Urine pH (5.0-6.5) Ur Specific [place] (1.010-1.025) Urine Protein (NEGATIVE) mg/dL Urine Glucose (UA) (NEGATIVE) mg/dL Urine Ketones (NEGATIVE) mg/dL Urine Occult Blood (NEGATIVE) Urine Nitrite (NEGATIVE) Urine Bilirubin (NEGATIVE) Urine Urobilinogen (NEGATIVE) mg/dL Ur Leukocyte Esterase (NEGATIVE) Urine RBC (0) Urine WBC (0) Ur Squamous Epith Cells (NS,R,O) Urine Bacteria (NS) 11/30/16 11/30/16 11/30/16 Range/Units 01:51 02:32 03:50 WBC (4.5-12.0) X10-3/uL RBC (3.23-5.20) x10(6)uL Hgb (11.5-15.5) g/dL Hct (30.0-51.3) % MCV (80-96) fL MCH (27.7-33.6) pg MCHC (32.2-35.4) g/dL RDW (11.5-15.5) % Plt Count (125-369) X10(3)uL MPV (7.4-10.4) fL Neut % (Auto) (46-82) % Lymph % (Auto) (13-37) % [place] % (Auto) (4-12) % Eos % (Auto) (1.0-5.0) % Baso % (Auto) (0-2) % Neut # (Auto) (1.6-8.3) # Lymph # (Auto) (0.6-5.0) # [place] # (Auto) (0.0-1.3) # Eos # (Auto) (0.0-0.8) # Baso # (Auto) (0.0-0.2) # Add Manual Diff Neutrophils % (Manual) (46-82) % Band Neutrophils % (0-6) % Lymphocytes % (Manual) (13-37) % Monocytes % (Manual) (4-12) % Toxic Granulation (NOT SEEN) PT (8.7-11.1) INR (0.89-1.13) Sodium (135-145) mmol/L Potassium (3.5-5.3) mmol/L Chloride (100-110) mmol/L Carbon Dioxide (23-29) mmol/L BUN (8-23) mg/dL Creatinine (0.6-1.3) mg/dL Est Cr Clr Drug Dosing Estimated GFR (MDRD) (>60) BUN/Creatinine Ratio (9-20) Glucose (80-116) mg/dL POC Glucose 40 L 116 208 H D (80-116) mg/dL Hemoglobin A1c (4.0-6.0) % Lactic Acid (0.5-2.2) mmol/L Calcium (8.6-10.2) mg/dL Total Bilirubin (0.1-1.3) mg/dL Direct Bilirubin (0.1-0.2) mg/dL AST (5-27) IU/L ALT (14-26) IU/L Alkaline Phosphatase (56-112) IU/L Troponin I (0.02-0.06) NG/ML C-Reactive Protein (0.0-1.0) mg/dL B-Natriuretic Peptide (0-100) pg/mL Total Protein (6.0-8.0) g/dL Albumin (3.2-4.6) g/dL Globulin g/dL Albumin/Globulin Ratio TSH, Ultra Sensitive (0.4-5.5) nlU/mL Urine Color (YELLOW) Urine Appearance (CLEAR) Urine pH (5.0-6.5) Ur Specific [place] (1.010-1.025) Urine Protein (NEGATIVE) mg/dL Urine Glucose (UA) (NEGATIVE) mg/dL Urine Ketones (NEGATIVE) mg/dL Urine Occult Blood (NEGATIVE) Urine Nitrite (NEGATIVE) Urine Bilirubin (NEGATIVE) Urine Urobilinogen (NEGATIVE) mg/dL Ur Leukocyte Esterase (NEGATIVE) Urine RBC (0) Urine WBC (0) Ur Squamous Epith Cells (NS,R,O) Urine Bacteria (NS) 11/30/16 11/30/16 11/30/16 Range/Units 06:07 06:07 06:11 WBC 11.4 (4.5-12.0) X10-3/uL RBC 3.31 (3.23-5.20) x10(6)uL Hgb 9.9 L (11.5-15.5) g/dL Hct 29.9 L (30.0-51.3) % MCV 90.2 (80-96) fL MCH 29.9 (27.7-33.6) pg MCHC 33.2 (32.2-35.4) g/dL RDW 12.1 (11.5-15.5) % Plt Count 261 (125-369) X10(3)uL MPV 8.8 (7.4-10.4) fL Neut % (Auto) (46-82) % Lymph % (Auto) (13-37) % [place] % (Auto) (4-12) % Eos % (Auto) (1.0-5.0) % Baso % (Auto) (0-2) % Neut # (Auto) (1.6-8.3) # Lymph # (Auto) (0.6-5.0) # [place] # (Auto) (0.0-1.3) # Eos # (Auto) (0.0-0.8) # Baso # (Auto) (0.0-0.2) # Add Manual Diff Yes Neutrophils % (Manual) 79 (46-82) % Band Neutrophils % (0-6) % Lymphocytes % (Manual) 13 (13-37) % Monocytes % (Manual) 8 (4-12) % Toxic Granulation (NOT SEEN) PT (8.7-11.1) INR (0.89-1.13) Sodium 131 L (135-145) mmol/L Potassium 3.3 L (3.5-5.3) mmol/L Chloride 99 L D (100-110) mmol/L Carbon Dioxide 26 (23-29) mmol/L BUN 11 (8-23) mg/dL Creatinine 0.8 (0.6-1.3) mg/dL Est Cr Clr Drug Dosing 41.76 Estimated GFR (MDRD) > 60 (>60) BUN/Creatinine Ratio 13.8 (9-20) Glucose 164 H (80-116) mg/dL POC Glucose 151 H (80-116) mg/dL Hemoglobin A1c (4.0-6.0) % Lactic Acid (0.5-2.2) mmol/L Calcium 7.6 L (8.6-10.2) mg/dL Total Bilirubin (0.1-1.3) mg/dL Direct Bilirubin (0.1-0.2) mg/dL AST (5-27) IU/L ALT (14-26) IU/L Alkaline Phosphatase (56-112) IU/L Troponin I (0.02-0.06) NG/ML C-Reactive Protein (0.0-1.0) mg/dL B-Natriuretic Peptide (0-100) pg/mL Total Protein (6.0-8.0) g/dL Albumin (3.2-4.6) g/dL Globulin g/dL Albumin/Globulin Ratio TSH, Ultra Sensitive (0.4-5.5) nlU/mL Urine Color (YELLOW) Urine Appearance (CLEAR) Urine pH (5.0-6.5) Ur Specific [place] (1.010-1.025) Urine Protein (NEGATIVE) mg/dL Urine Glucose (UA) (NEGATIVE) mg/dL Urine Ketones (NEGATIVE) mg/dL Urine Occult Blood (NEGATIVE) Urine Nitrite (NEGATIVE) Urine Bilirubin (NEGATIVE) Urine Urobilinogen (NEGATIVE) mg/dL Ur Leukocyte Esterase (NEGATIVE) Urine RBC (0) Urine WBC (0) Ur Squamous Epith Cells (NS,R,O) Urine Bacteria (NS) 11/30/16 11/30/16 11/30/16 Range/Units 11:23 14:20 17:07 WBC (4.5-12.0) X10-3/uL RBC (3.23-5.20) x10(6)uL Hgb (11.5-15.5) g/dL Hct (30.0-51.3) % MCV (80-96) fL MCH (27.7-33.6) pg MCHC (32.2-35.4) g/dL RDW (11.5-15.5) % Plt Count (125-369) X10(3)uL MPV (7.4-10.4) fL Neut % (Auto) (46-82) % Lymph % (Auto) (13-37) % [place] % (Auto) (4-12) % Eos % (Auto) (1.0-5.0) % Baso % (Auto) (0-2) % Neut # (Auto) (1.6-8.3) # Lymph # (Auto) (0.6-5.0) # [place] # (Auto) (0.0-1.3) # Eos # (Auto) (0.0-0.8) # Baso # (Auto) (0.0-0.2) # Add Manual Diff Neutrophils % (Manual) (46-82) % Band Neutrophils % (0-6) % Lymphocytes % (Manual) (13-37) % Monocytes % (Manual) (4-12) % Toxic Granulation (NOT SEEN) PT (8.7-11.1) INR (0.89-1.13) Sodium 133 L (135-145) mmol/L Potassium 3.7 (3.5-5.3) mmol/L Chloride 99 L (100-110) mmol/L Carbon Dioxide 27 (23-29) mmol/L BUN 13 (8-23) mg/dL Creatinine 1.0 (0.6-1.3) mg/dL Est Cr Clr Drug Dosing 33.41 Estimated GFR (MDRD) 53 L (>60) BUN/Creatinine Ratio 13.0 (9-20) Glucose 288 H D (80-116) mg/dL POC Glucose 173 H 461 H* D (80-116) mg/dL Hemoglobin A1c (4.0-6.0) % Lactic Acid (0.5-2.2) mmol/L Calcium 8.0 L (8.6-10.2) mg/dL Total Bilirubin 0.6 (0.1-1.3) mg/dL Direct Bilirubin (0.1-0.2) mg/dL AST 30 H D (5-27) IU/L ALT 17 (14-26) IU/L Alkaline Phosphatase 82 (56-112) IU/L Troponin I (0.02-0.06) NG/ML C-Reactive Protein 8.5 H* (0.0-1.0) mg/dL B-Natriuretic Peptide (0-100) pg/mL Total Protein 6.3 (6.0-8.0) g/dL Albumin 3.1 L (3.2-4.6) g/dL Globulin 3.2 g/dL Albumin/Globulin Ratio 1.0 TSH, Ultra Sensitive (0.4-5.5) nlU/mL Urine Color (YELLOW) Urine Appearance (CLEAR) Urine pH (5.0-6.5) Ur Specific [place] (1.010-1.025) Urine Protein (NEGATIVE) mg/dL Urine Glucose (UA) (NEGATIVE) mg/dL Urine Ketones (NEGATIVE) mg/dL Urine Occult Blood (NEGATIVE) Urine Nitrite (NEGATIVE) Urine Bilirubin (NEGATIVE) Urine Urobilinogen (NEGATIVE) mg/dL Ur Leukocyte Esterase (NEGATIVE) Urine RBC (0) Urine WBC (0) Ur Squamous Epith Cells (NS,R,O) Urine Bacteria (NS) 11/30/16 12/01/16 12/01/16 Range/Units 21:54 06:20 07:26 WBC (4.5-12.0) X10-3/uL RBC (3.23-5.20) x10(6)uL Hgb (11.5-15.5) g/dL Hct (30.0-51.3) % MCV (80-96) fL MCH (27.7-33.6) pg MCHC (32.2-35.4) g/dL RDW (11.5-15.5) % Plt Count (125-369) X10(3)uL MPV (7.4-10.4) fL Neut % (Auto) (46-82) % Lymph % (Auto) (13-37) % [place] % (Auto) (4-12) % Eos % (Auto) (1.0-5.0) % Baso % (Auto) (0-2) % Neut # (Auto) (1.6-8.3) # Lymph # (Auto) (0.6-5.0) # [place] # (Auto) (0.0-1.3) # Eos # (Auto) (0.0-0.8) # Baso # (Auto) (0.0-0.2) # Add Manual Diff Neutrophils % (Manual) (46-82) % Band Neutrophils % (0-6) % Lymphocytes % (Manual) (13-37) % Monocytes % (Manual) (4-12) % Toxic Granulation (NOT SEEN) PT (8.7-11.1) INR (0.89-1.13) Sodium (135-145) mmol/L Potassium (3.5-5.3) mmol/L Chloride (100-110) mmol/L Carbon Dioxide (23-29) mmol/L BUN (8-23) mg/dL Creatinine (0.6-1.3) mg/dL Est Cr Clr Drug Dosing Estimated GFR (MDRD) (>60) BUN/Creatinine Ratio (9-20) Glucose 469 H* D (80-116) mg/dL POC Glucose 330 H D 441 H* D (80-116) mg/dL Hemoglobin A1c (4.0-6.0) % Lactic Acid (0.5-2.2) mmol/L Calcium (8.6-10.2) mg/dL Total Bilirubin (0.1-1.3) mg/dL Direct Bilirubin (0.1-0.2) mg/dL AST (5-27) IU/L ALT (14-26) IU/L Alkaline Phosphatase (56-112) IU/L Troponin I (0.02-0.06) NG/ML C-Reactive Protein (0.0-1.0) mg/dL B-Natriuretic Peptide (0-100) pg/mL Total Protein (6.0-8.0) g/dL Albumin (3.2-4.6) g/dL Globulin g/dL Albumin/Globulin Ratio TSH, Ultra Sensitive (0.4-5.5) nlU/mL Urine Color (YELLOW) Urine Appearance (CLEAR) Urine pH (5.0-6.5) Ur Specific [place] (1.010-1.025) Urine Protein (NEGATIVE) mg/dL Urine Glucose (UA) (NEGATIVE) mg/dL Urine Ketones (NEGATIVE) mg/dL Urine Occult Blood (NEGATIVE) Urine Nitrite (NEGATIVE) Urine Bilirubin (NEGATIVE) Urine Urobilinogen (NEGATIVE) mg/dL Ur Leukocyte Esterase (NEGATIVE) Urine RBC (0) Urine WBC (0) Ur Squamous Epith Cells (NS,R,O) Urine Bacteria (NS) 12/01/16 12/01/16 12/01/16 Range/Units 11:39 11:45 15:53 WBC (4.5-12.0) X10-3/uL RBC (3.23-5.20) x10(6)uL Hgb (11.5-15.5) g/dL Hct (30.0-51.3) % MCV (80-96) fL MCH (27.7-33.6) pg MCHC (32.2-35.4) g/dL RDW (11.5-15.5) % Plt Count (125-369) X10(3)uL MPV (7.4-10.4) fL Neut % (Auto) (46-82) % Lymph % (Auto) (13-37) % [place] % (Auto) (4-12) % Eos % (Auto) (1.0-5.0) % Baso % (Auto) (0-2) % Neut # (Auto) (1.6-8.3) # Lymph # (Auto) (0.6-5.0) # [place] # (Auto) (0.0-1.3) # Eos # (Auto) (0.0-0.8) # Baso # (Auto) (0.0-0.2) # Add Manual Diff Neutrophils % (Manual) (46-82) % Band Neutrophils % (0-6) % Lymphocytes % (Manual) (13-37) % Monocytes % (Manual) (4-12) % Toxic Granulation (NOT SEEN) PT (8.7-11.1) INR (0.89-1.13) Sodium (135-145) mmol/L Potassium (3.5-5.3) mmol/L Chloride (100-110) mmol/L Carbon Dioxide (23-29) mmol/L BUN (8-23) mg/dL Creatinine (0.6-1.3) mg/dL Est Cr Clr Drug Dosing Estimated GFR (MDRD) (>60) BUN/Creatinine Ratio (9-20) Glucose 454 H* (80-116) mg/dL POC Glucose 419 H* 313 H D (80-116) mg/dL Hemoglobin A1c (4.0-6.0) % Lactic Acid (0.5-2.2) mmol/L Calcium (8.6-10.2) mg/dL Total Bilirubin (0.1-1.3) mg/dL Direct Bilirubin (0.1-0.2) mg/dL AST (5-27) IU/L ALT (14-26) IU/L Alkaline Phosphatase (56-112) IU/L Troponin I (0.02-0.06) NG/ML C-Reactive Protein (0.0-1.0) mg/dL B-Natriuretic Peptide (0-100) pg/mL Total Protein (6.0-8.0) g/dL Albumin (3.2-4.6) g/dL Globulin g/dL Albumin/Globulin Ratio TSH, Ultra Sensitive (0.4-5.5) nlU/mL Urine Color (YELLOW) Urine Appearance (CLEAR) Urine pH (5.0-6.5) Ur Specific [place] (1.010-1.025) Urine Protein (NEGATIVE) mg/dL Urine Glucose (UA) (NEGATIVE) mg/dL Urine Ketones (NEGATIVE) mg/dL Urine Occult Blood (NEGATIVE) Urine Nitrite (NEGATIVE) Urine Bilirubin (NEGATIVE) Urine Urobilinogen (NEGATIVE) mg/dL Ur Leukocyte Esterase (NEGATIVE) Urine RBC (0) Urine WBC (0) Ur Squamous Epith Cells (NS,R,O) Urine Bacteria (NS) MICHELLE Results - Last 24 hrs: Microbiology 11/28/16 13:40 Aerobic Blood Culture - Preliminary Blood - Venous - Lab Draw NO GROWTH AFTER 3 DAYS Anaerobic Blood Culture - Preliminary NO GROWTH AFTER 3 DAYS 11/28/16 13:35 Aerobic Blood Culture - Preliminary Blood - Venous NO GROWTH AFTER 3 DAYS Anaerobic Blood Culture - Preliminary NO GROWTH AFTER 3 DAYS 11/29/16 18:30 Urine Culture - Preliminary Urine, Voided NO GROWTH AFTER 1 DAY Microbiology 11/29/16 18:20 Stool / Feces - Stool, Formed Clostridium difficile Toxin A& B (M) - Final NEGATIVE CDIFF TOXIN 11/29/16 18:30 Urine, Voided Urine Culture - Final NO GROWTH AFTER 2 DAYS 11/29/16 18:20 Stool / Feces Stool Occult Blood (MICHELLE) - Final NEGATIVE OCCULT BLOOD 11/25/16 20:40 Blood - Venous Aerobic Blood Culture - Final Escherichia Coli 11/25/16 20:40 Blood - Venous Anaerobic Blood Culture - Final 11/25/16 21:00 Urine, Voided Urine Culture - Final Escherichia Coli 11/25/16 20:45 Blood - Venous - Lab Draw Aerobic Blood Culture - Final 11/25/16 20:45 Blood - Venous - Lab Draw Anaerobic Blood Culture - Final Med Orders - Current: Current Medications Acetaminophen (Tylenol) 650 mg PO Q4H PRN PRN Reason: Pain (Mild 1-3)/fever Last Admin: 11/28/16 02:24 Dose: 650 mg Albuterol/Ipratropium (Duoneb 3.0-0.5 Mg/3 Ml) 3 ml NEB QIDRT [facility] Last Admin: 12/01/16 15:05 Dose: 3 ml Amlodipine Besylate (Norvasc) 10 mg PO DAILY [facility] Last Admin: 12/01/16 08:44 Dose: 10 mg Emollient Ointment (Vanicream) 0 gm TOP DAILY [facility] Last Admin: 12/01/16 08:45 Dose: 1 applic Enoxaparin Sodium (Lovenox) 40 mg SUBCUT DAILY [facility] Last Admin: 12/01/16 08:41 Dose: 40 mg Furosemide (Lasix) 40 mg PO DAILY [facility] Last Admin: 12/01/16 08:40 Dose: 40 mg Sodium Chloride (Normal Saline) 250 mls @ 50 mls/hr IV ASDIRECTED [facility] Last Admin: 11/25/16 22:06 Dose: 50 mls/hr Levofloxacin/Dextrose 750 mg/ (Premix) 150 mls @ 100 mls/hr IV Q48H [facility] Last Admin: 11/29/16 20:24 Dose: 100 mls/hr Insulin Aspart (Novolog) 0 unit SUBCUT TIDMEALS PRN; Protocol PRN Reason: hypergycemia Last Admin: 12/01/16 12:04 Dose: 5 unit Insulin Aspart (Novolog) 5 unit SUBCUT TIDMEALS [facility] Last Admin: 12/01/16 12:05 Dose: 5 units Insulin Detemir (Levemir) 28 unit SUBCUT DAILY [facility] Last Admin: 12/01/16 08:35 Dose: 28 units Levothyroxine Sodium (Levothyroxine) 75 mcg PO ACBREAKFAST [facility] Last Admin: 12/01/16 08:01 Dose: 75 mcg Lorazepam (Ativan) 0.25 mg PO Q6H PRN PRN Reason: restlessness/insomnia Last Admin: 11/30/16 23:14 Dose: 0.25 mg Losartan Potassium (Cozaar) 100 mg PO DAILY [facility] Last Admin: 12/01/16 08:44 Dose: 100 mg Metoprolol Succinate (Toprol Xl) 50 mg PO DAILY [facility] Last Admin: 12/01/16 08:44 Dose: 50 mg Multivitamins/Minerals/Vitamin C (Tab-A-Marco [place]) 1 tab PO DAILY [facility] Last Admin: 12/01/16 08:40 Dose: 1 tab Nicotine (Habitrol) 14 mg TRDERM DAILY [facility] Last Admin: 12/01/16 08:39 Dose: 14 mg Ondansetron HCl (Zofran) 4 mg IV Q4H PRN PRN Reason: Nausea/Vomiting Last Admin: 11/28/16 11:53 Dose: 4 mg Pantoprazole Sodium (Protonix Iv) 40 mg IVPUSH DAILY [facility] Last Admin: 12/01/16 08:40 Dose: 40 mg Potassium Chloride (Klor-Con 10) 10 meq PO BIDMEALS [facility] Last Admin: 12/01/16 08:02 Dose: 10 meq Sodium Chloride (Saline Flush) 10 ml FLUSH ASDIRECTED PRN PRN Reason: Keep Vein Open Last Admin: 11/29/16 22:12 Dose: 10 ml Discontinued Medications Acetylcysteine (Mucomyst 20%) 300 mg NEB QIDRT [facility] Last Admin: 12/01/16 07:07 Dose: 300 mg Albuterol/Ipratropium (Duoneb 3.0-0.5 Mg/3 Ml) 3 ml NEB Q8H [facility] Last Admin: 11/29/16 10:52 Dose: 3 ml Albuterol/Ipratropium (Duoneb 3.0-0.5 Mg/3 Ml) 3 ml NEB ONETIME ONE Stop: 11/28/16 20:10 Last Admin: 11/28/16 20:20 Dose: 3 ml Diphenhydramine HCl (Benadryl) 25 mg IVPUSH ONETIME ONE Stop: 11/25/16 22:07 Last Admin: 11/25/16 22:20 Dose: 25 mg Enoxaparin Sodium (Lovenox) 40 mg SUBCUT DAILY [facility] Last Admin: 11/26/16 10:30 Dose: 40 mg Enoxaparin Sodium (Lovenox) 30 mg SUBCUT Q24H [facility] Last Admin: 11/29/16 10:31 Dose: 30 mg Furosemide (Lasix) 20 mg PO DAILY [facility] Last Admin: 11/29/16 10:29 Dose: 20 mg Furosemide (Lasix) 20 mg PO ONETIME ONE Stop: 11/28/16 22:31 Last Admin: 11/28/16 23:35 Dose: 20 mg Furosemide (Lasix) 20 mg IVPUSH NOW ONE Stop: 11/29/16 07:45 Last Admin: 11/29/16 08:20 Dose: 20 mg Furosemide (Lasix) 20 mg IVPUSH BIDDIURETIC [facility] Last Admin: 11/29/16 15:00 Dose: 20 mg Levofloxacin/Dextrose 750 mg/ (Premix) 150 mls @ 100 mls/hr IV ONETIME ONE Stop: 11/25/16 22:26 Last Admin: 11/25/16 22:00 Dose: 100 mls/hr Sodium Chloride (Normal Saline) 1,000 mls @ 100 mls/hr IV ASDIRECTED [facility] Last Admin: 11/28/16 06:22 Dose: 100 mls/hr Vancomycin HCl 1,000 mg/ (Sodium Chloride) 250 mls @ 167 mls/hr IV Q24H [facility] Last Admin: 11/27/16 11:35 Dose: 167 mls/hr Metronidazole 500 mg/ Premix 100 mls @ 100 mls/hr IV Q8H [facility] Last Infusion: 11/27/16 06:29 Dose: Infused Meropenem 1 gm/ Sodium (Chloride) 100 mls @ 200 mls/hr IV Q12H [facility] Last Admin: 11/28/16 04:13 Dose: 200 mls/hr Metronidazole 500 mg/ Premix 100 mls @ 100 mls/hr IV Q8H [facility] Last Admin: 11/28/16 00:41 Dose: 100 mls/hr Metronidazole (Flagyl 500 Mg In Ns 100 Ml) Confirm Administered Dose 100 mls @ as directed .ROUTE .STK-MED ONE Stop: 11/27/16 16:57 Last Admin: 11/27/16 17:18 Dose: Not Given Metronidazole (Flagyl 500 Mg In Ns 100 Ml) Confirm Administered Dose 100 mls @ as directed .ROUTE .STK-MED ONE Stop: 11/28/16 00:33 Last Admin: 11/28/16 00:43 Dose: Not Given Potassium Chloride/Sodium Chloride (Normal Saline With 20 Meq Kcl) 1,000 mls @ 50 mls/hr IV Q20H [facility] Last Admin: 11/28/16 14:21 Dose: 50 mls/hr Ibuprofen (Motrin) 600 mg PO Q6H PRN PRN Reason: Pain (mild 1-3) Last Admin: 11/27/16 21:48 Dose: 600 mg Insulin Aspart (Novolog) 5 unit SUBCUT WITHMEALSANDBED [facility] Last Admin: 11/29/16 21:18 Dose: Not Given Insulin Aspart (Novolog) 3 unit SUBCUT TIDMEALS [facility] Last Admin: 12/01/16 12:00 Dose: Not Given Insulin Detemir (Levemir) 28 unit SUBCUT DAILY [facility] Insulin Detemir (Levemir) 28 unit SUBCUT DAILY [facility] Last Admin: 11/29/16 11:00 Dose: 28 units Insulin Detemir (Levemir) 25 unit SUBCUT DAILY [facility] Last Admin: 11/30/16 09:02 Dose: 25 units Insulin Human Regular (Humulin R) 0 unit SUBCUT TID [facility] PRN Reason: Protocol Insulin Human Regular (Humulin R) 0 unit SUBCUT QID [facility] PRN Reason: Protocol Lidocaine/Prilocaine (Emla Crm) 5 gm TOP ONETIME ONE Stop: 11/28/16 13:25 Lorazepam (Ativan) 0.5 mg PO BEDTIME [facility] Last Admin: 11/28/16 21:44 Dose: 0.5 mg Lorazepam (Ativan) 0.5 mg PO Q8H PRN PRN Reason: Anxiety Last Admin: 11/28/16 16:08 Dose: 0.5 mg Lorazepam (Ativan) 2.5 mg PO Q8H PRN PRN Reason: anxiety/insomnia Lorazepam (Ativan) 0.25 mg PO Q8H PRN PRN Reason: anxiety/insomnia Last Admin: 11/29/16 21:41 Dose: 0.25 mg Potassium Chloride (Klor-Con 10) 10 meq PO BID [facility] Last Admin: 11/28/16 21:41 Dose: Not Given Vancomycin HCl (Pharmacy To Dose - Vancomycin) 1 dose .XX ASDIRECTED [facility] - Exam Physical Findings Comments:: General: Alert, Oriented, No Acute Distress HEENT: Pupils Equal, Mucous Membr. Moist/[place] Neck: Supple, Trachea Midline, No JVD, No Thyromegaly Lungs: Normal Respiratory Effort, Crackles, Rales (minimal bilat). No: Rhonchi , Stridor, Wheezing Cardiovascular: Regular Rate, Regular Rhythm, No Murmurs GI/Abdominal Exam: Normal Bowel Sounds, Soft, Non-Tender Back Exam: No: CVA Tenderness (R), CVA Tenderness (L) Extremities: Normal Capillary Refill, Pedal Edema (teds on. ), warmth, redness and tenderness improved. induration reduced. Skin: Other (see above) iv right hand intact. tolerated. no complications. abdominal injection sites healthy. Neurological: No New Focal Deficit, able to get up and ambulate to bathroom slowly but with better strength and endurance without symptoms of orthostasis. Psy/Mental Status: Alert, Normal Affect, Normal Mood Treatment Indications/Problem List Ordering Provider Megan Nixon General Information Patient Pt visiting with daughter upon arrival. Pt Statement reports she is feeling well and had no concerns and no reports of pain start of session. Therapy Indicated Yes Treatment Plan Treatment Frequency Daily, Twice (BID) Planned Duration 1-2 wks PT Treatments Planned Gait Training,Neuromuscular Reeducation,Safety Education,Therapeutic Exercises Assessment of Progress Pt was able to ambulate a far distance, perform gait drills and complete all transfers with SBA. Pt demonstrated good control and good safety awareness throuhout session. Pt reported that she would like to be independent in room with no AD and would like to keep the walker in her room for as needed. Plan of Care Comment Stair training next session. Comunicate to primary PT about goals met and how well pt is doing regarding d/c from PT and independence in room . Interdisciplinary Consults Interdisciplinary Consultation No Needs Treatment Barriers Potential Barriers Acuity of Illness Rehabilitation Potential Rehabilitation Potential Good PT Plan of Care PT Plan of Care Start: 11/28/16 16: 15 Freq: .PRN Status: Discharge Document 11/29/16 07:51 TV (Rec: 11/29/16 08:12 TV [id number]) Physical Therapy Short Term Goals/Outcomes Functinal Activity.\ Additional Short Term Goal 1 Kelin will improve to Mod I all transfers and ambulation with/without assistive device to Limited/Full Community Amb distances by 12/12/2016. Additional Short Term Goal 2 Kelin will return to her prior I/Mod I functional activity level at home by 03/2017. *Q Meaningful Use (DIS) - VTE *Q VTE Criteria *Q: - Stroke *Q Stroke Criteria *Q: - AMI *Q AMI Criteria *Q:
--- NOTE | 2016-12-01 16:19 | US ---
INDICATION: Had a PICC line removed, red, tender, swollen - question DVT or abscess. DUPLEX ULTRASOUND, LEFT UPPER EXTREMITY VEINS: Multiple ultrasonic images revealed no evidence of an abscess formation. There is a superficial venous thrombosis in the anterior upper arm. However, no evidence of deep venous thrombosis is identified. IMPRESSION: 1. No evidence of deep venous thrombosis. 2. Superficial venous thrombosis noted over a moderately long segment of a superficial venous structure at the anterior upper arm. MTDD
== END 2016-12-01 16:00 | disposition swing bed (61) | DRG 871 ==
LOC: FB.ED 19:54 → FB.MS 21:03 → UNDODISIN 11-30 20:23
PROVIDERS: ADMIT Family Medicine; ATTEND Family Medicine
PROC: 05H333Z Insertion of Infusion Device into Right Innominate Vein, Percutaneous Approach (ICD-10-PCS; principal; 2016-11-29)
DX: A41.51 Sepsis due to Escherichia coli [E. coli] (principal); J18.9 Pneumonia, unspecified organism; J44.0 Chronic obstructive pulmonary disease with (acute) lower respiratory infection; N28.9 Disorder of kidney and ureter, unspecified; N30.01 Acute cystitis with hematuria; E87.1 Hypo-osmolality and hyponatremia; B96.20 Unspecified Escherichia coli [E. coli] as the cause of diseases classified elsewhere; E86.0 Dehydration; E11.65 Type 2 diabetes mellitus with hyperglycemia; Z79.4 Long term (current) use of insulin; E11.40 Type 2 diabetes mellitus with diabetic neuropathy, unspecified; Z66 Do not resuscitate; E03.9 Hypothyroidism, unspecified; F17.210 Nicotine dependence, cigarettes, uncomplicated; I50.9 Heart failure, unspecified; Z74.09 Other reduced mobility; R53.1 Weakness; R05 Cough; R50.9 Fever, unspecified; Z51.5 Encounter for palliative care; M19.90 Unspecified osteoarthritis, unspecified site; Z87.440 Personal history of urinary (tract) infections; H54.7 Unspecified visual loss; Z85.42 Personal history of malignant neoplasm of other parts of uterus; Z92.3 Personal history of irradiation; Z88.1 Allergy status to other antibiotic agents; Z91.041 Radiographic dye allergy status; Z91.040 Latex allergy status; Z91.018 Allergy to other foods; Z88.0 Allergy status to penicillin; Z99.89 Dependence on other enabling machines and devices
CPT/HCPCS: 36415; 36569; 71010; 71020; 76770; 80048; 80053; 80076; 81001; 82272; 82947; 82962; 83036; 83605; 83880; 84443; 84484; 85025; 85027; 85610; 86140; 87040; 87077; 87086; 87088; 87186; 87324; 93005; 93306; 93971-LT; 94150; 94640-76; 96365; 96368; 96375; 97116-GP; 97161-GP; 97165-GO; 99284; 99285; A9270-GY; C9113; J1200; J1650; J1940; J1956; J2185; J2405; J3370; J3480; J7030; J7040; J7050; J7620

== ENCOUNTER 2016-12-01 16:01 | Inpatient (IN) | payer MEDICARE, OTHER ==
[2016-12-01] MEDS ORDERED: Ondansetron 4 MG/2 ML SDV IV PRN (16:35)
[2016-12-01] MEDS ORDERED: Acetaminophen 325 MG Tab PO PRN (16:35)
--- NOTE | 2016-12-01 16:44 | PCM.HPR ---
H & P Addendum review - H & P Addendum Review Date of Original H & P: 12/01/16 Date Reviewed: 12/01/16 Time Reviewed: 16:41 Patient was examined: No Changes (Pt is transfer from [place] to Swing Bed for continued IV abx to complete 2 wk course due to ecoli urosepsis with secondary bilateral lower lobe pneumonia/COPD exacerbation. Will be getting PT/OT for strenghtening/ambulation. Comes from her own home outside of town where she lives alone. Daughter, very attentive and local resident. visits daily.)
[2016-12-01] MEDS ORDERED: LEVOFLOXACIN IV SCH (16:45)
[2016-12-01] MEDS ORDERED: WATER IV SCH (16:45)
[2016-12-01] MEDS ORDERED: [UNRECOGNIZED DRUG - OTHER] IV SCH (16:45)
[2016-12-01] MEDS ORDERED: [UNRECOGNIZED DRUG - OTHER] IV SCH (16:45)
[2016-12-01] MEDS ORDERED: SODIUM CHLORIDE 0.9% IV SCH (16:45)
[2016-12-01] MEDS ORDERED: DEXTROSE IV SCH (16:45)
--- NOTE | 2016-12-01 16:50 | PCM.SN ---
- Free Text/Narrative Note: Admission Diagnosis/Problem Admission Diagnosis/Problem Urosepsis Allergies Allergy/AdvReac Type Severity Reaction Status Date / Time amoxicillin Allergy Hives Verified 11/30/16 12:40 erythromycin base Allergy Swelling Verified 11/30/16 12:40 iodine Allergy Swelling Verified 11/30/16 12:40 latex Allergy Rash Verified 11/30/16 12:40 Penicillins Allergy Hives Verified 11/30/16 12:40 shellfish derived Allergy Difficulty Verified 11/30/16 12:41 Breathing Active/Suspected Problems Current Visit Only Table Problem Status Onset Sepsis Acute Acute hemorrhagic cystitis Acute COPD with acute lower respiratory infection Acute Blood bacterial culture positive Acute Superficial venous thrombosis of right upper extremity Acute Decreased mobility and endurance Acute Hyperglycemia due to type 2 diabetes mellitus Acute Hyponatremia Acute Palliative care status Acute CHF (congestive heart failure) Chronic DNI (do not intubate) Chronic DNR (do not resuscitate) Chronic IDDM (insulin dependent diabetes mellitus) Chronic Hypothyroidism Chronic Mobilizes using aids Chronic Tobacco dependence Chronic HTN, goal below 140/90 Chronic Active Orders 24 hr Category Date Time Status Patient Status [ADT] Routine ADT 12/01/16 16:00 Ordered Head of Bed Elevation [RC] ASDIRECTED Care 12/01/16 16:31 Ordered Height and Weight [RC] DAILY Care 12/01/16 16:31 Ordered Oxygen Therapy [RC] PRN Care 12/01/16 16:27 Ordered RT Incentive Spirometry [RC] Q4HWA Care 12/01/16 16:31 Ordered VTE/DVT Education [RC] Per Unit Routine Care 12/01/16 16:27 Ordered Vital Signs [RC] PER UNIT ROUTINE Care 12/01/16 16:27 Ordered OT Evaluation and Treatment [CONS] Routine Cons 12/01/16 16:31 Ordered PT Evaluation and Treatment [CONS] Routine Cons 12/01/16 16:31 Ordered Acetaminophen [Tylenol] Med 12/01/16 16:35 Ordered 650 mg PO Q4H PRN Albuterol/Ipratropium [DuoNeb 3.0-0.5 MG/3 ML] Med 12/01/16 21:00 Ordered 3 ml NEB QIDRT Emollient [Vanicream] Med 12/02/16 09:00 Ordered 1 applic TOP DAILY Enoxaparin [Lovenox] Med 12/02/16 09:00 Ordered 40 mg SUBCUT DAILY Furosemide [Lasix] Med 12/02/16 09:00 Ordered 40 mg PO DAILY Insulin Aspart [NovoLOG] Med 12/01/16 18:00 Ordered 5 unit SUBCUT TIDMEALS Insulin Aspart [NovoLOG] Med 12/01/16 16:35 Ordered See Protocol SUBCUT TIDMEALS PRN Insulin Detemir [Levemir] Med 12/02/16 09:00 Ordered 28 unit SUBCUT DAILY LORazepam [Ativan] Med 12/01/16 16:35 Ordered 0.25 mg PO Q6H PRN Levofloxacin/Dextrose 5%-Water [Levaquin in D5W 750 MG/ Med 12/01/16 16:45 Ordered 150 ML] 750 mg IV Q48H Levothyroxine Med 12/02/16 07:30 Ordered 75 mcg PO ACBREAKFAST Losartan [Cozaar] Med 12/02/16 09:00 Ordered 100 mg PO DAILY Metoprolol Succinate [Toprol XL] Med 12/02/16 09:00 Ordered 50 mg PO DAILY Multivitamins [Tab-A-Marco Antonio] Med 12/02/16 09:00 Ordered 1 tab PO DAILY Nicotine [Habitrol] Med 12/02/16 09:00 Ordered 14 mg TRDERM DAILY Ondansetron [Zofran] Med 12/01/16 16:35 Ordered 4 mg IV Q4H PRN Pantoprazole [ProTONIX IV] Med 12/02/16 09:00 Ordered 40 mg IVPUSH DAILY Potassium Chloride [Klor-Con 10] Med 12/01/16 18:00 Ordered 10 meq PO BIDMEALS Premix Bag [Premix Bag] Med 12/01/16 16:45 Ordered 1 bag IV Q48H Sodium Chloride 0.9% [Normal Saline] Med 12/01/16 16:45 Ordered 1 bag IV ASDIRECTED Sodium Chloride 0.9% [Saline Flush] Med 12/01/16 16:35 Ordered 10 ml FLUSH ASDIRECTED PRN amLODIPine [Norvasc] Med 12/02/16 09:00 Ordered 10 mg PO DAILY Antiembolic Hose [OM.PC] Routine Oth 12/01/16 16:31 Ordered Convert IV to Saline Lock [OM.PC] Routine Oth 12/01/16 16:31 Ordered Give supplemental Oxygen PRN [COMM] Routine Oth 12/01/16 16:31 Ordered Resuscitation Status Routine Resus Stat 12/01/16 16:27 Ordered Medication Orders Acetaminophen (Tylenol) 650 mg PO Q4H PRN PRN Reason: Pain Albuterol/Ipratropium (Duoneb 3.0-0.5 Mg/3 Ml) 3 ml NEB QIDRT [facility] Amlodipine Besylate (Norvasc) 10 mg PO DAILY [facility] Emollient Ointment (Vanicream) 0 gm TOP DAILY [facility] Enoxaparin Sodium (Lovenox) 40 mg SUBCUT DAILY [facility] Furosemide (Lasix) 40 mg PO DAILY [facility] Insulin Aspart (Novolog) 5 unit SUBCUT TIDMEALS [facility] Insulin Aspart (Novolog) 0 unit SUBCUT TIDMEALS PRN; Protocol PRN Reason: Hyperglycemia Insulin Detemir (Levemir) 28 unit SUBCUT DAILY [facility] Levofloxacin/Dextrose (Levaquin In D5w 750 Mg/150 Ml) 750 mg IV Q48H [facility] Levothyroxine Sodium (Levothyroxine) 75 mcg PO ACBREAKFAST [facility] Lorazepam (Ativan) 0.25 mg PO Q6H PRN PRN Reason: anxiety/insomnia Losartan Potassium (Cozaar) 100 mg PO DAILY [facility] Metoprolol Succinate (Toprol Xl) 50 mg PO DAILY [facility] Multivitamins/Minerals/Vitamin C (Tab-A-[place]co [place]) 1 tab PO DAILY [facility] Nicotine (Habitrol) 14 mg TRDERM DAILY [facility] Non-Formulary Medication (Sodium Chloride 0.9% [Normal Saline]) 1 bag IV ASDIRECTED [facility] Non-Formulary Medication (Premix Bag [Premix Bag]) 1 bag IV Q48H [facility] Ondansetron HCl (Zofran) 4 mg IV Q4H PRN PRN Reason: Nausea Pantoprazole Sodium (Protonix Iv) 40 mg IVPUSH DAILY [facility] Potassium Chloride (Klor-Con 10) 10 meq PO BIDMEALS [facility] Sodium Chloride (Saline Flush) 10 ml FLUSH ASDIRECTED PRN PRN Reason: Keep Vein Open
[2016-12-01] MEDS ORDERED: Sodium Chloride 0.9% 250 ML IV SCH (17:00)
[2016-12-01] MEDS: Insulin Aspart 100 Units/ML 3 ML Pen SUBCUT SCH (17:39)
[2016-12-01] MEDS: Insulin Aspart 100 Units/ML 3 ML Pen SUBCUT PRN (17:40)
[2016-12-01] MEDS: Potassium Chloride 10 MEQ Tab.ER PO SCH (18:00)
[2016-12-01] MEDS ORDERED: Albuterol/Ipratropium 3.0-0.5 MG/3 ML Neb Soln NEB PRN (18:52)
[2016-12-01] MEDS ORDERED: Albuterol/Ipratropium 3.0-0.5 MG/3 ML Neb Soln NEB SCH (21:00)
[2016-12-01] MEDS: Levofloxacin/Dextrose 5%-Water 750 MG in Premix Bag 1 BAG IV SCH (22:04)
[2016-12-01] MEDS: Albuterol/Ipratropium 3.0-0.5 MG/3 ML Neb Soln NEB SCH (22:06)
[2016-12-02] MEDS: LORazepam 0.5 MG Tab PO PRN (00:05)
[2016-12-02] MEDS: Levothyroxine 75 MCG Tab PO SCH (06:13)
[2016-12-02] MEDS: Insulin Detemir 100 Units/ML 3 ML Pen SUBCUT SCH (08:08)
[2016-12-02] MEDS: Losartan 100 MG Tab PO SCH (08:13)
[2016-12-02] MEDS: Potassium Chloride 10 MEQ Tab.ER PO SCH ×2 (08:15→17:53)
[2016-12-02] MEDS: Nicotine 14 MG/24 Hr Patch TRDERM SCH (08:16)
[2016-12-02] MEDS: Furosemide 40 MG Tab PO SCH (08:19)
[2016-12-02] MEDS: amLODIPine 10 MG Tab PO SCH (08:20)
[2016-12-02] MEDS: Multivitamin Tab PO SCH (08:21)
[2016-12-02] MEDS: Sodium Chloride 0.9% 10 ML Syringe FLUSH PRN (08:21)
[2016-12-02] MEDS: Metoprolol Succinate 50 MG Tab.ER PO SCH (08:21)
[2016-12-02] MEDS: Pantoprazole 40 MG Vial IVPUSH SCH (08:21)
[2016-12-02] MEDS: Emollient 454 GM Jar TOP SCH (08:23)
[2016-12-02] MEDS: Enoxaparin 40 MG/0.4 ML Syringe SUBCUT SCH (08:32)
[2016-12-02] MEDS: Insulin Aspart 100 Units/ML 3 ML Pen SUBCUT SCH ×3 (08:33→17:52)
[2016-12-02] MEDS: Albuterol/Ipratropium 3.0-0.5 MG/3 ML Neb Soln NEB SCH ×2 (09:40→21:03)
[2016-12-02] MEDS ORDERED: Fluconazole 150 MG Tab PO ONE (10:02)
[2016-12-02] MEDS: Psyllium 0.52 GM Cap PO SCH (10:56)
[2016-12-02] MEDS: Insulin Aspart 100 Units/ML 3 ML Pen SUBCUT PRN ×2 (11:44→17:51)
[2016-12-03] MEDS: Levothyroxine 75 MCG Tab PO SCH (06:05)
[2016-12-03] MEDS: Potassium Chloride 10 MEQ Tab.ER PO SCH ×2 (07:46→18:46)
[2016-12-03] MEDS: Insulin Aspart 100 Units/ML 3 ML Pen SUBCUT SCH ×3 (07:46→20:10)
[2016-12-03] MEDS: Albuterol/Ipratropium 3.0-0.5 MG/3 ML Neb Soln NEB SCH ×2 (08:19→21:15)
[2016-12-03] MEDS: Losartan 100 MG Tab PO SCH (08:30)
[2016-12-03] MEDS: Nicotine 14 MG/24 Hr Patch TRDERM SCH (08:31)
[2016-12-03] MEDS: Furosemide 40 MG Tab PO SCH (08:31)
[2016-12-03] MEDS: Insulin Detemir 100 Units/ML 3 ML Pen SUBCUT SCH (08:32)
[2016-12-03] MEDS: Enoxaparin 40 MG/0.4 ML Syringe SUBCUT SCH (08:33)
[2016-12-03] MEDS: Psyllium 0.52 GM Cap PO SCH (08:33)
[2016-12-03] MEDS: Pantoprazole 40 MG Vial IVPUSH SCH (08:34)
[2016-12-03] MEDS: amLODIPine 10 MG Tab PO SCH (08:34)
[2016-12-03] MEDS: Metoprolol Succinate 50 MG Tab.ER PO SCH (08:35)
[2016-12-03] MEDS: Multivitamin Tab PO SCH (08:35)
[2016-12-03] MEDS: Emollient 454 GM Jar TOP SCH (08:36)
[2016-12-03] MEDS: Sodium Chloride 0.9% 10 ML Syringe FLUSH PRN (08:37)
[2016-12-03] MEDS: Insulin Aspart 100 Units/ML 3 ML Pen SUBCUT PRN (11:33)
[2016-12-03] MEDS: Levofloxacin/Dextrose 5%-Water 750 MG in Premix Bag 1 BAG IV SCH (21:14)
[2016-12-04] MEDS: Levothyroxine 75 MCG Tab PO SCH (06:06)
[2016-12-04] MEDS: Insulin Aspart 100 Units/ML 3 ML Pen SUBCUT PRN ×2 (07:47→11:46)
[2016-12-04] MEDS: Insulin Aspart 100 Units/ML 3 ML Pen SUBCUT SCH ×3 (07:49→18:19)
[2016-12-04] MEDS: Potassium Chloride 10 MEQ Tab.ER PO SCH ×2 (08:30→18:19)
[2016-12-04] MEDS: Multivitamin Tab PO SCH (08:49)
[2016-12-04] MEDS: Furosemide 40 MG Tab PO SCH (08:49)
[2016-12-04] MEDS: Psyllium 0.52 GM Cap PO SCH (08:49)
[2016-12-04] MEDS: Losartan 100 MG Tab PO SCH (08:49)
[2016-12-04] MEDS: Metoprolol Succinate 50 MG Tab.ER PO SCH (08:50)
[2016-12-04] MEDS: amLODIPine 10 MG Tab PO SCH (08:50)
[2016-12-04] MEDS: Pantoprazole 40 MG Vial IVPUSH SCH (08:50)
[2016-12-04] MEDS: Nicotine 14 MG/24 Hr Patch TRDERM SCH (08:51)
[2016-12-04] MEDS: Enoxaparin 40 MG/0.4 ML Syringe SUBCUT SCH (08:51)
[2016-12-04] MEDS: Insulin Detemir 100 Units/ML 3 ML Pen SUBCUT SCH (08:52)
[2016-12-04] MEDS: Emollient 454 GM Jar TOP SCH (08:52)
[2016-12-04] MEDS: Albuterol/Ipratropium 3.0-0.5 MG/3 ML Neb Soln NEB SCH ×2 (09:09→20:36)
[2016-12-05] MEDS: Levothyroxine 75 MCG Tab PO SCH (06:14)
[2016-12-05] MEDS: Insulin Aspart 100 Units/ML 3 ML Pen SUBCUT SCH ×3 (07:48→18:05)
[2016-12-05] MEDS: Potassium Chloride 10 MEQ Tab.ER PO SCH ×2 (07:51→18:04)
[2016-12-05] MEDS: Albuterol/Ipratropium 3.0-0.5 MG/3 ML Neb Soln NEB SCH ×2 (08:49→20:35)
[2016-12-05] MEDS: Psyllium 0.52 GM Cap PO SCH (09:28)
[2016-12-05] MEDS: Losartan 100 MG Tab PO SCH (09:28)
[2016-12-05] MEDS: Nicotine 14 MG/24 Hr Patch TRDERM SCH (09:28)
[2016-12-05] MEDS: Enoxaparin 40 MG/0.4 ML Syringe SUBCUT SCH (09:29)
[2016-12-05] MEDS: Furosemide 40 MG Tab PO SCH (09:29)
[2016-12-05] MEDS: Metoprolol Succinate 50 MG Tab.ER PO SCH (09:29)
[2016-12-05] MEDS: amLODIPine 10 MG Tab PO SCH (09:29)
[2016-12-05] MEDS: Insulin Detemir 100 Units/ML 3 ML Pen SUBCUT SCH (09:29)
[2016-12-05] MEDS: Multivitamin Tab PO SCH (09:29)
[2016-12-05] MEDS: Emollient 454 GM Jar TOP SCH (09:42)
[2016-12-05] MEDS: Pantoprazole 40 MG Vial IVPUSH SCH (09:42)
[2016-12-05] MEDS: Insulin Aspart 100 Units/ML 3 ML Pen SUBCUT PRN (11:53)
[2016-12-05] MEDS ORDERED: Diclofenac Sodium 1% Gel 100 GM Tube TOP PRN (20:00)
[2016-12-05] MEDS: Levofloxacin/Dextrose 5%-Water 750 MG in Premix Bag 1 BAG IV SCH (20:34)
[2016-12-05] MEDS: Menthol/Methyl Salicylate 142 GM Jar TOP PRN (21:59)
[2016-12-06] MEDS: LORazepam 0.5 MG Tab PO PRN (01:12)
[2016-12-06] MEDS: Levothyroxine 75 MCG Tab PO SCH (06:05)
[2016-12-06] MEDS: Potassium Chloride 10 MEQ Tab.ER PO SCH ×2 (07:30→17:32)
[2016-12-06] MEDS: Insulin Aspart 100 Units/ML 3 ML Pen SUBCUT SCH ×3 (07:31→17:31)
[2016-12-06] MEDS: Albuterol/Ipratropium 3.0-0.5 MG/3 ML Neb Soln NEB SCH ×2 (08:35→20:15)
[2016-12-06] MEDS: Losartan 100 MG Tab PO SCH (09:21)
[2016-12-06] MEDS: Nicotine 14 MG/24 Hr Patch TRDERM SCH (09:22)
[2016-12-06] MEDS: Furosemide 40 MG Tab PO SCH (09:24)
[2016-12-06] MEDS: Sodium Chloride 0.9% 10 ML Syringe FLUSH PRN (09:25)
[2016-12-06] MEDS: Insulin Detemir 100 Units/ML 3 ML Pen SUBCUT SCH (09:26)
[2016-12-06] MEDS: Enoxaparin 40 MG/0.4 ML Syringe SUBCUT SCH (09:28)
[2016-12-06] MEDS: Psyllium 0.52 GM Cap PO SCH (09:28)
[2016-12-06] MEDS: Metoprolol Succinate 50 MG Tab.ER PO SCH (09:29)
[2016-12-06] MEDS: Multivitamin Tab PO SCH (09:29)
[2016-12-06] MEDS: Pantoprazole 40 MG Vial IVPUSH SCH (09:29)
[2016-12-06] MEDS: amLODIPine 10 MG Tab PO SCH (09:29)
[2016-12-06] MEDS: Emollient 454 GM Jar TOP SCH (09:30)
[2016-12-06] MEDS: Menthol/Methyl Salicylate 142 GM Jar TOP PRN (22:12)
[2016-12-07] MEDS: LORazepam 0.5 MG Tab PO PRN (01:59)
[2016-12-07] MEDS: Levothyroxine 75 MCG Tab PO SCH (06:22)
[2016-12-07] MEDS: Potassium Chloride 10 MEQ Tab.ER PO SCH (08:02)
[2016-12-07] MEDS: Insulin Aspart 100 Units/ML 3 ML Pen SUBCUT SCH ×2 (08:02→12:08)
[2016-12-07] MEDS: Losartan 100 MG Tab PO SCH (08:29)
[2016-12-07] MEDS: Nicotine 14 MG/24 Hr Patch TRDERM SCH (08:31)
[2016-12-07] MEDS: Furosemide 40 MG Tab PO SCH (08:34)
[2016-12-07] MEDS: Insulin Detemir 100 Units/ML 3 ML Pen SUBCUT SCH (08:36)
[2016-12-07 08:38] VITALS: BP 145/57
[2016-12-07] MEDS: Psyllium 0.52 GM Cap PO SCH (08:39)
[2016-12-07] MEDS: Enoxaparin 40 MG/0.4 ML Syringe SUBCUT SCH (08:39)
[2016-12-07] MEDS: amLODIPine 10 MG Tab PO SCH (08:40)
[2016-12-07] MEDS: Multivitamin Tab PO SCH (08:41)
[2016-12-07] MEDS: Metoprolol Succinate 50 MG Tab.ER PO SCH (08:44)
[2016-12-07] MEDS: Emollient 454 GM Jar TOP SCH (08:53)
[2016-12-07] MEDS: Albuterol/Ipratropium 3.0-0.5 MG/3 ML Neb Soln NEB SCH (09:15)
[2016-12-07] MEDS: Insulin Aspart 100 Units/ML 3 ML Pen SUBCUT PRN (11:55)
--- NOTE | 2016-12-07 15:21 | DISCH ---
DISCHARGE DATE: 12/07/2016 REASON FOR ADMISSION: 1. Urosepsis E. coli. 2. Pneumonia. 3. Chronic obstructive pulmonary disease. 4. Physical deconditioning and weakness. DISCHARGE DIAGNOSES: 1. Urosepsis E. coli. 2. Pneumonia. 3. Chronic obstructive pulmonary disease. 4. Physical deconditioning and weakness. 5. Type 2 diabetes. 6. Tobacco abuse syndrome. 7. Hypertension. 8. Congestive heart failure. 9. Hypothyroidism. 10.Constipation. BRIEF HISTORY AND HOSPITAL COURSE: This is an 86-year-old female admitted to [facility] by Dr. Nixon. She had positive blood cultures and recommendation was given for Levaquin 750 mg IV every 48 hours for 2 weeks. She also felt weak and needed some strengthening and ambulation by Physical Therapy. This was accomplished by the 07 of December. She was discharged home to finish oral Levaquin for one week. DISCHARGE MEDICATIONS: 1. Levaquin 750 mg every other day, 7 tablets. 2. Furosemide 40 mg a day (this is a change from the previous dose of 20 mg at home). 3. Nicotine patches 14 mg daily. 4. Metoprolol 50 mg a day (this was a change from home medications of 75). She will also go home on; 1. DuoNeb daily. 2. Vitamin D3 one a day. 3. 28 units of Lantus every night. 4. Levothyroxine 75 mcg a day. 5. Cozaar 100 mg daily. 6. One multivitamin a day. 7. Amlodipine 10 mg a day. 8. Acetaminophen p.r.n. 9. NovoLog 5 units with every meal. 10.Potassium chloride 10 mEq b.i.d. FOLLOWUP: I have recommended that she see her PCP within 1 week after discharge. Please note that I spent more than 35 minutes in discharge of this patient. /[id number] KIZZY/MASSIEL
== END 2016-12-07 13:10 | disposition home or self-care (01) | DRG 689 ==
LOC: FB.MS 16:01
PROVIDERS: ADMIT Family Medicine; ATTEND Family Medicine
DX: N30.01 Acute cystitis with hematuria (principal); J18.9 Pneumonia, unspecified organism; R78.81 Bacteremia; I82.612 Acute embolism and thrombosis of superficial veins of left upper extremity; B96.20 Unspecified Escherichia coli [E. coli] as the cause of diseases classified elsewhere; J44.9 Chronic obstructive pulmonary disease, unspecified; F17.210 Nicotine dependence, cigarettes, uncomplicated; E11.65 Type 2 diabetes mellitus with hyperglycemia; E11.40 Type 2 diabetes mellitus with diabetic neuropathy, unspecified; I50.9 Heart failure, unspecified; I10 Essential (primary) hypertension; R53.1 Weakness; Z66 Do not resuscitate; Z51.5 Encounter for palliative care; E03.9 Hypothyroidism, unspecified; Z79.4 Long term (current) use of insulin; Z79.2 Long term (current) use of antibiotics; K59.00 Constipation, unspecified; Z88.1 Allergy status to other antibiotic agents; Z91.040 Latex allergy status; Z88.0 Allergy status to penicillin; Z91.013 Allergy to seafood; Z88.8 Allergy status to other drugs, medicaments and biological substances
CPT/HCPCS: 36415; 80048; 82947; 82962; 94640-76; 97116-GP; A9270-GY; C9113; J1650; J1956; J7050; J7620

== ENCOUNTER 2017-03-13 09:56 | Inpatient (IN) | payer MEDICARE, OTHER ==
[2017-03-13] MEDS ORDERED: Sodium Chloride 0.9% 1,000 ML IV SCH (10:30)
--- NOTE | 2017-03-13 10:37 | EDM.PDOC ---
ED HPI GENERAL MEDICAL PROBLEM - General Chief Complaint: General Stated Complaint: weakness Time Seen by Provider: 03/13/17 10:15 Source of Information: Reports: Patient, Family, Old Records History Limitations: Reports: Other (incomplete access to clinic records) - History of Present Illness INITIAL COMMENTS - FREE TEXT/NARRATIVE: 86 yo female brought in by family when Dr. Angela was not available in the clinic today. She has been complaining for over a month of muscle pain associated with an elevated ESR(50), diarrhea with incontinence, 12# weight loss in the last 2-3 weeks, and depression. She is diabetic and her BS this am was about 400. Is unsteady on her feet and a fall risk. She has been living alone, but family is considering now finally [facility] or assisted living. There has not been a fever or any respiratory sx's. She is a life long smoker. Onset: Gradual Onset Date: 02/03/17 Duration: Week(s): (>4 weeks), Getting Worse Location: Reports: Generalized (muscle pain/weakness) Quality: Reports: Ache Severity: Moderate Improves with: Reports: Rest Worsens with: Reports: Movement (Or palpation of the muscles) Context: Reports: Other (uncertain) Associated Symptoms: Reports: Loss of Appetite, Malaise, Weakness. 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 whole body Pain Score (Numeric/FACES): 6 - Related Data Allergies Allergy/AdvReac Type Severity Reaction Status Date / Time amoxicillin Allergy Hives Verified 03/13/17 10:24 erythromycin base Allergy Swelling Verified 03/13/17 10:24 iodine Allergy Swelling Verified 03/13/17 10:24 latex Allergy Rash Verified 03/13/17 10:24 Penicillins Allergy Hives Verified 03/13/17 10:24 shellfish derived Allergy Difficulty Verified 03/13/17 10:24 Breathing Home Meds: Home Meds Insulin Glarg,Human.Rec.Analog [Lantus Solostar] 28 unit SUBCUT DAILY 11/30/15 [ History] Levothyroxine Sodium [Synthroid] 75 mcg PO ACBREAKFAST 11/30/15 [History] Losartan [Cozaar] 100 mg PO DAILY 11/30/15 [History] amLODIPine [Norvasc] 10 mg PO DAILY 11/30/15 [History] Albuterol/Ipratropium [DuoNeb 3.0-0.5 MG/3 ML] 1 inh INH DAILY 05/19/16 [History ] Cholecalciferol (Vitamin D3) [Vitamin D3] 1,000 unit PO DAILY 05/19/16 [History] Multivitamin [Multi-Vitamin Daily] 1 tab PO DAILY 05/19/16 [History] Acetaminophen [Tylenol] 650 mg PO Q4H PRN #0 tablet 12/01/16 [Rx] Emollient [Vanicream] 1 applic TOP DAILY #0 jar 12/01/16 [Rx] Insulin Aspart [NovoLOG] 5 unit SUBCUT TIDMEALS pen 12/01/16 [Rx] Potassium Chloride [Klor-Con 10] 10 meq PO BIDMEALS tab.er 12/01/16 [Rx] Furosemide [Lasix] 40 mg PO DAILY #30 tablet 12/07/16 [Rx] Levofloxacin [Levaquin] 750 mg PO Q48H #7 tablet 12/07/16 [Rx] Metoprolol Succinate [Toprol XL] 50 mg PO DAILY #30 tab.er 12/07/16 [Rx] Nicotine [Habitrol] 14 mg TRDERM DAILY #30 patch 12/07/16 [Rx] Past Medical History HEENT History: Reports: Impaired Vision Other HEENT History: wears glasses Cardiovascular History: Reports: Hypertension Other Cardiovascular History: CHF, HTN, has experienced HF after surgical procedures Respiratory History: Reports: Other (See Below) Other Respiratory History: smoker's cough Gastrointestinal History: Reports: Bowel Obstruction, Cholelithiasis, Chronic Diarrhea Other Gastrointestinal History: Small bowel obstruction with lysis of adhesions. 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 Neurological History: Reports: Neuropathy, Diabetic Other Neuro History: Seizure with low blood sugar episode. 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 - Infectious Disease History Infectious Disease History: Reports: Chicken Pox, Measles, Shingles - Past Surgical History HEENT Surgical History: Reports: Adenoidectomy, Cataract Surgery, Tonsillectomy Other Cardiovascular Surgeries/Procedures: had a superficial blood clot to the right arm from picc line. The line was pulled on 12/01/16. GI Surgical History: Reports: Appendectomy, Cholecystectomy, Colostomy, Other ( See Below) Musculoskeletal Surgical History: Reports: None Social & Family History - Family History Family Medical History: Noncontributory - Tobacco Use Smoking Status *Q: Current Every Day Smoker Years of Tobacco use: 40 Packs/Tins Daily: 1 Second Hand Smoke Exposure: No - Caffeine Use Caffeine Use: Reports: Coffee, Tea - Recreational Drug Use Recreational Drug Use: No ED ROS GENERAL - Review of Systems Review Of Systems: See Below Constitutional: Reports: Malaise, Weakness, Fatigue, Decreased Appetite HEENT: Reports: No Symptoms Respiratory: Reports: No Symptoms Cardiovascular: Reports: No Symptoms Endocrine: Reports: Fatigue, High Glucose GI/Abdominal: Reports: Anorexia, Diarrhea, Decreased Appetite, Stool Incontinence. Denies: Black Stool, Bloody Stool, Constipation, Difficulty Swallowing, Distension, Hematemesis, Hematochezia, Melena, Nausea, Vomiting : Reports: No Symptoms Musculoskeletal: Reports: Muscle Pain (diffusely) Skin: Reports: No Symptoms Neurological: Reports: Weakness (generalized) Psychiatric: Reports: No Symptoms ED EXAM, GI/ABD - Physical Exam Exam: See Below Exam Limited By: No Limitations General Appearance: Alert, WD/WN, No Apparent Distress Eyes: Bilateral: Normal Appearance Ears: Normal External Exam, Normal Canal, Hearing Grossly Normal Nose: Normal Inspection, Normal Mucosa, No Blood Throat/Mouth: Normal Inspection, Normal Lips, Normal Teeth, Normal Oropharynx, Normal Voice, No Airway Compromise Head: Atraumatic, Normocephalic Neck: Normal Inspection, Supple, Non-Tender Respiratory/Chest: No Respiratory Distress, Lungs Clear, Normal Breath Sounds, No Accessory Muscle Use Cardiovascular: Regular Rate, Rhythm, No Edema GI/Abdominal Exam: Normal Bowel Sounds, Soft, Non-Tender, No Distention Back Exam: Normal Inspection. No: CVA Tenderness (R), CVA Tenderness (L) Extremities: Normal Inspection, Normal Range of Motion, Non-Tender, No Pedal Edema Neurological: Alert, Oriented, CN II-XII Intact, Normal Cognition, No Motor/ Sensory Deficits Psychiatric: Normal Affect, Depressed Mood Skin Exam: Warm, Dry, Intact, Normal Color, No Rash Lymphatic: No Adenopathy Course - Vital Signs Last Recorded V/S: Last Vital Signs Temp 36.7 C 03/13/17 09:56 Pulse 79 03/13/17 09:56 Resp 18 03/13/17 09:56 BP 132/45 L 03/13/17 09:56 Pulse Ox 96 03/13/17 09:56 - Orders/Labs/Meds Orders: Active Orders 24 hr Category Date Time Status CDIFF TOXIN A+B GROUP [OP] Stat Lab 03/13/17 10:39 Uncollected Hemoccult [OCCULT BLOOD DIAGNOSTIC] [OP] Stat Lab 03/13/17 10:28 Uncollected UA W/MICROSCOPIC [URIN] Stat Lab 03/13/17 10:29 Uncollected Sodium Chloride 0.9% [Normal Saline] 1,000 ml Med 03/13/17 10:30 Active IV ASDIRECTED Medication Orders Sodium Chloride (Normal Saline) 1,000 mls @ 500 mls/hr IV ASDIRECTED NICKI Last Admin: 03/13/17 10:51 Dose: 500 mls/hr Labs: Laboratory Tests 03/13/17 03/13/17 03/13/17 Range/Units 10:40 10:40 10:40 WBC 11.7 (4.5-12.0) X10-3/uL RBC 3.60 (3.23-5.20) x10(6)uL Hgb 10.8 L (11.5-15.5) g/dL Hct 31.7 (30.0-51.3) % MCV 88.1 (80-96) fL MCH 30.0 (27.7-33.6) pg MCHC 34.0 (32.2-35.4) g/dL RDW 12.1 (11.5-15.5) % Plt Count 449 H (125-369) X10(3)uL ESR 42 H (0-20) mm/hr Sodium 127 L (135-145) mmol/L Potassium 4.4 (3.5-5.3) mmol/L Chloride 98 L (100-110) mmol/L Carbon Dioxide 20 L (23-29) mmol/L BUN 22 (8-23) mg/dL Creatinine 0.8 (0.6-1.3) mg/dL Est Cr Clr Drug Dosing 39.92 mL/min Estimated GFR (MDRD) > 60 (>60) BUN/Creatinine Ratio 27.5 H (9-20) Glucose 355 H D (80-116) mg/dL Calcium 8.3 L (8.6-10.2) mg/dL Total Bilirubin 0.7 (0.1-1.3) mg/dL AST 24 D (5-27) IU/L ALT 11 L D (14-26) IU/L Alkaline Phosphatase 70 (56-112) IU/L Total Protein 6.4 (6.0-8.0) g/dL Albumin 3.4 (3.2-4.6) g/dL Globulin 3.0 g/dL Albumin/Globulin Ratio 1.1 Meds: Medications Generic Name Dose Route Start Last Admin Trade Name Freq PRN Reason Stop Dose Admin Sodium Chloride 1,000 mls @ 500 mls/hr 03/13/17 10:30 03/13/17 10:51 Normal Saline IV 500 mls/hr ASDIRECTED NICKI Administration Discontinued Medications Generic Name Dose Route Start Last Admin Trade Name Freq PRN Reason Stop Dose Admin Prednisone 15 mg 03/13/17 10:43 03/13/17 11:09 Prednisone PO 03/13/17 10:44 15 mg NOW STA Administration Departure - Departure Time of Disposition: 12:45 Disposition: Refer to Observation Condition: Fair Clinical Impression: Elevated erythrocyte sedimentation rate, Hyponatremia, Weight loss, Muscle pain , Risk for falls Stool incontinence Qualifiers: Fecal incontinence type: unspecified Qualified Code(s): R15.9 - Full incontinence of feces Diarrhea Qualifiers: Diarrhea type: unspecified type Qualified Code(s): R19.7 - Diarrhea, unspecified - Discharge Information Referrals: Leola Ng MD [Primary Care Provider] - Forms: ED Department Discharge - My Orders Last 24 Hours: My Active Orders 03/13/17 10:28 Hemoccult [OCCULT BLOOD DIAGNOSTIC] [OP] Stat 03/13/17 10:29 UA W/MICROSCOPIC [URIN] Stat 03/13/17 10:30 Sodium Chloride 0.9% [Normal Saline] 1,000 ml IV ASDIRECTED 03/13/17 10:39 CDIFF TOXIN A+B GROUP [OP] Stat - Assessment/Plan Last 24 Hours: My Active Orders 03/13/17 10:28 Hemoccult [OCCULT BLOOD DIAGNOSTIC] [OP] Stat 03/13/17 10:29 UA W/MICROSCOPIC [URIN] Stat 03/13/17 10:30 Sodium Chloride 0.9% [Normal Saline] 1,000 ml IV ASDIRECTED 03/13/17 10:39 CDIFF TOXIN A+B GROUP [OP] Stat
[2017-03-13] MEDS ORDERED: predniSONE 5 MG Tab PO STA (10:43)
[2017-03-13] MEDS ORDERED: Acetaminophen 325 MG Tab PO PRN (12:36)
[2017-03-13] MEDS ORDERED: Insulin Aspart 100 Units/ML 3 ML Pen SUBCUT STA ×2 (12:41→21:46)
[2017-03-13] MEDS: Sodium Chloride 0.9% 1,000 ML IV SCH (12:57)
[2017-03-13] MEDS ORDERED: Non-Formulary Medication 1 Each (Acetaminophen [Tylenol] 650 MG) PO PRN (16:25)
[2017-03-13] MEDS ORDERED: Insulin Aspart 100 Units/ML 3 ML Pen ONE (17:49)
[2017-03-13] MEDS ORDERED: INSULIN ASPART SUBCUT SCH (18:00)
[2017-03-13] MEDS ORDERED: Insulin Aspart 100 Units/ML 3 ML Pen SUBCUT SCH (18:15)
[2017-03-13] MEDS: Potassium Chloride 10 MEQ Tab.ER PO SCH (18:31)
[2017-03-13] MEDS ORDERED: Potassium Chloride 10% 20 MEQ/15 ML Soln 15 ML UD Cup PO ONE (21:45)
[2017-03-14] MEDS: hydrOXYzine HCl 25 MG Tab PO PRN ×2 (03:14→21:15)
[2017-03-14] MEDS: Levothyroxine 75 MCG Tab PO SCH (08:44)
[2017-03-14] MEDS: Insulin Aspart 100 Units/ML 3 ML Pen SUBCUT SCH ×4 (08:44→21:08)
[2017-03-14] MEDS: Potassium Chloride 10 MEQ Tab.ER PO SCH ×2 (08:45→18:39)
[2017-03-14] MEDS: Losartan 100 MG Tab PO SCH (08:45)
[2017-03-14] MEDS: Nicotine 14 MG/24 Hr Patch TRDERM SCH (08:48)
[2017-03-14] MEDS: Cholecalciferol (Vitamin D3) 1,000 Unit Tab PO SCH (08:49)
[2017-03-14] MEDS: Multivitamin Tab PO SCH (08:49)
[2017-03-14] MEDS: amLODIPine 10 MG Tab PO SCH (08:49)
[2017-03-14] MEDS: Metoprolol Succinate 50 MG Tab.ER PO SCH (08:49)
[2017-03-14] MEDS: Insulin Detemir 100 Units/ML 3 ML Pen SUBCUT SCH (08:56)
[2017-03-14] MEDS ORDERED: Albuterol/Ipratropium 3.0-0.5 MG/3 ML Neb Soln INH SCH (09:00)
[2017-03-14] MEDS ORDERED: EMOLLIENT TOP SCH (09:00)
[2017-03-14] MEDS ORDERED: Non-Formulary Medication 1 Each (Furosemide [Lasix] 40 MG) PO SCH (09:00)
[2017-03-14] MEDS: Sodium Chloride 0.9% 1,000 ML IV SCH ×2 (09:12→22:10)
[2017-03-14] MEDS ORDERED: FLU Vacc QS 2017-18 (36mos UP)/PF 60 MCG/0.5 ML Syringe IM ONE (10:19)
--- NOTE | 2017-03-14 10:46 | CR ---
INDICATION: Weight loss, custodial smoker. CHEST: PA and lateral views of the chest 03/14/2017 were compared with 2016 and 11/28/2016, revealing the heart to be within normal limits in size and shape. The aorta is tortuous with calcification in the arch and descending portion. A mild dextroconvex scoliosis of the upper middle thoracic spine is noted. A definite active infiltrate or effusion was not identified. No definite mass lesion is seen. IMPRESSION: 1. No acute process. Little change is suggested compared with 11/29/2016. 2. ASD aorta. 3. Scoliosis. 4. Probable mild COPD with mildly prominent AP diameter, hyperaeration, and minimally flattened diaphragm leaves. MTDD
--- NOTE | 2017-03-14 12:35 | CT ---
INDICATION: Abdominal pain, diarrhea, 12-pound weight loss, dye allergy. CT ABDOMEN AND PELVIS WITHOUT CONTRAST: Spiral 1.25-mm axial sections were obtained through the abdomen and pelvis with oral contrast only apparently due to allergy to contrast, which is not designated. Sagittal and coronal reconstructions were obtained. Exam is 03/14/2017. Total Exam DLP = 705.66 mGy-cm. Findings were compared with 08/31/2012. Pneumonia and pleuritis seen at the right lung base and minimally at the left lung base on the previous study has resolved with no definite active infiltrate or effusion at this time. Minimal fibrotic change is seen at the lung bases. The heart did not appear enlarged. Air is noted in the biliary tree which may be on the basis of sphincterotomy and possibly cholecystectomy which is in evidence, there being clips at the cystic duct area and no evidence of a gallbladder. Except for the air in the biliary tree, the liver appeared to show no abnormal areas of density. There is a small oval nodular exophytic density seen along the posterior aspect of the liver from axial image #88 through #96, which is of questionable etiology. It may be a normal variant. It was present in 2012 and appeared slightly different, but not grossly increased in size. In the mid pole lateral anterior cortex of the right kidney, there is a low- density mass which may represent a simple cystic structure. Ultrasound may be helpful for confirmation, however. At any rate, this likely is benign in origin , having only increased from 19 to 25 mm in the interval from 2012. There is noted renal fascial thickening bilaterally, compatible with some mild cortical scarring, possibly on the basis of previous pyelonephritis. The kidneys were otherwise unremarkable, including the left kidney. The spleen appeared normal, as did the pancreas. The common bile duct did not appear to be significantly dilated. There is, however, noted air in the common bile duct, as well as the biliary tree, which was not present on the previous examination. Calcifications are noted in the abdominal aorta, splenic artery, iliac, and femoral arteries. The appendix was not visualized, compatible with history of its removal. Additionally, the uterus is absent, compatible with history of its removal. The ovaries were not visualized additionally. Sigmoid diverticulosis is noted without definite evidence of diverticulitis. Multiple phleboliths are noted in the pelvis. The urinary bladder had a normal appearance. No definite hernia was seen. There appears to be thickening of the wall of a few loops of jejunum proximally. This could be on the basis of a process such as Crohn's disease, but should be correlated clinically. No bowel obstruction was seen. There are some air-fluid levels, which could simply be on the basis of contrast ingestion , although a process such as gastroenteritis cannot be excluded. Compared with the previous study, no gross distention of the bowel was seen. Degenerative changes and disk disease are noted in the lumbar spine with vacuum disk phenomena and hypertrophic changes at L2-3, L3-4, and calcified disk with bulging at L4-5. There is minimal calcification in the L5-S1 disk, which is also bulging posteriorly. No free air or free fluid was noted in the abdomen or pelvis. No other organomegaly or other mass lesions were seen in the abdomen or pelvis. No retroperitoneal mass lesion was seen. IMPRESSION: 1. Diverticulosis sigmoid. No definite diverticulitis. 2. ASD. 3. Some thickening of the wall of the proximal jejunal loops of questionable etiology, possibly on the basis of Crohn's disease. However, there are air- fluid levels in the small and large bowel, raising question of additional process such as gastroenteritis - correlate clinically. 4. Slightly increased size of a probable benign right renal cyst. 5. Air is noted in the biliary tree, including the common bile duct. This may be on the basis of previous surgical procedure - less likely infection, and should be correlated clinically. It was not present on the previous examination of 2012. CT PELVIS: Examination of the pelvis was obtained by CT, as noted above. Air-fluid levels are noted, which may simply be on the basis of oral contrast ingestion, but should be correlated clinically, as gastroenteritis could also be present. Arterial calcifications are noted. Sigmoid diverticulosis is mild, but no definite evidence of diverticulitis is identified. Report was called to Dr. Moreno at 1125 hours, 03/14/2017. [facility]
[2017-03-14] MEDS ORDERED: Acetaminophen/Codeine 300-30 MG Tab PO SCH (14:00)
--- NOTE | 2017-03-14 15:14 | HP ---
ADMISSION DATE: 03/13/2017 REASON FOR VISIT: Progressive weakness, 12-pound weight loss, and chronic diarrhea. HISTORY OF PRESENT ILLNESS: Kelin Samuels is an 86-year-old female, resides in [place], [place], who was brought to [place] [facility]. Progressive weakness, protracted diarrhea, 12-pound weight loss, and lethargy and weakness necessitating hospitalization. Diarrhea is intermittent in nature, cramping, some accidents, and progressive weakness. She had been seen by Dr. Angela on two occasions. Laboratory studies were performed and were complementary. Medications were adjusted accordingly. Consideration for gabapentin for neuropathic pain, consideration for antidepressants. Intervention care and treatment appropriate. HOME MEDICATIONS: Include: 1. Acetaminophen 1000 mg t.i.d. p.r.n. for pain. 2. DuoNeb q.i.d. p.r.n. breathing difficulties. 3. Diclofenac. 4. Voltaren gel q.i.d. application joint pain. 5. Vanicream p.r.n. 6. Ibuprofen 600 b.i.d. pain. 7. Insulin 5 to 7 units of NovoLog premeal. 8. Amlodipine 10 mg 1 p.o. q. day, hypertension. 9. Furosemide 40 mg 1 p.o. q. day, edema. 10.Lantus insulin. 11.Levothyroxine 75 mcg 1 p.o. q. day, hypothyroidism. 12.Losartan 100 mg 1 p.o. b.i.d., hypertension. 13.Metoprolol 50 mg XL 1 p.o. q. day, blood pressure. 14.Multivitamin. 15.Potassium chloride 10 mEq b.i.d. ALLERGIES: Allergy to amoxicillin, erythromycin, iodine, latex, and shellfish. Amoxicillin with rash. Erythromycin with swelling. Iodine with swelling. Latex, rash. Penicillin, hives. Shellfish, difficulty bleeding. PAST MEDICAL HISTORY: Significant for previous total abdominal hysterectomy for uterine cancer in 2008. She has had an open cholecystectomy, incidental appendectomy, and two bilateral cataract surgery. Chronic illnesses include: Hypertension and diabetes. SOCIAL HISTORY: , 86 years of age, three kids, 2 sons, 1 daughter, and 9 grandkids. Continues to smoke one pack per day. No alcohol consumption. No illicit drug use. 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 FAMILY HISTORY: Negative for early heart disease, diabetes mellitus, or inheritable cancers. REVIEW OF SYSTEMS: CONSTITUTIONAL: Feeling weak. HEENT: Eyes; sees well and had a cataract surgery. Ears; hears well. Some difficulty in crowds. Oropharynx; intact dentition. No difficulty swallowing. CHEST: No cough, wheeze, or congestion. CARDIOVASCULAR: Denies chest pain, palpitations, or syncope. GASTROINTESTINAL: Complicated stools, vague abdominal pain. GENITOURINARY: Bladder without conflict. SKIN: No open sores or lesions. ENDOCRINE: No excessive thirst or urination. ALLERGIES: No chronic cough, wheeze, or congestion. PSYCHIATRIC: Mood stable. PHYSICAL EXAMINATION: VITAL SIGNS: 37.7, 99, 140/60, mean blood pressure 88, respirations 20, and O2 saturation 95%. GENERAL: Elderly, cooperative, conversant, and a bit cachectic. HEENT: Reveal funduscopic benign. Conjunctivae clear. Bright tympanic membranes. Clear nasal discharge. Mouth and oropharynx; clear. CHEST: Clear in all lung ordonez. HEART: Regular without ectopy or significant murmur. ABDOMEN: A little tender periumbilical. Bowel sounds are intact. GENITOURINARY: Deferred. RECTAL: Deferred. EXTREMITIES: Well perfused. SKIN: Without rash. ASSESSMENT: An 86-year-old female who presents with progressive weakness, complicated diarrhea, and unexpected weight loss, in the setting of an aging patient. PLAN: Admission to hospital is indicated, appropriate diagnostic studies, IV fluids, and intervention, complementary care and well being. CT abdomen. Diagnostic studies. Proceed accordingly. /[id number] /MASSIEL
--- NOTE | 2017-03-14 15:14 | PN ---
DATE SEEN: 03/14/2017 SUBJECTIVE: Kelin Samuels is a delightful 86-year-old female, admitted with significant weight loss, complicated diarrhea, diffuse generalized joint pain, and a sense of reduced well-being. Please see history and physical. She had a good night. IV fluids in place. The pain appears to be better controlled. She was given 50 mg of prednisone for uncertain reasons, PMR under consideration. Other reactive inflammatory tests are pending. LABORATORY DATA: Outstanding laboratory reports; chest x-ray, 03/14/2017 revealed no acute process, little interval change. CT of abdomen pending at the time of this dictation. OBJECTIVE: VITAL SIGNS: 130/51 is the blood pressure, mean blood pressure 77, O2 saturation 95% on room air, pulse of 81. GENERAL: Appears comfortable. NECK: Benign. Thyroid small. CHEST: Clear in all lung ordonez. HEART: Regular without ectopy or murmur. ABDOMEN: Benign. Soft and doughy. Unexpected weight gain, complicated diarrhea, diabetes mellitus. PLAN: Medications, care and treatment appropriate. CT provided, diagnostic studies for stool pending and to be provided. /[id number] LYNSEY/MASSIEL
[2017-03-14] MEDS: Acetaminophen/HYDROcodone 325-5 MG Tab PO PRN (19:11)
[2017-03-15] MEDS: Acetaminophen/HYDROcodone 325-5 MG Tab PO PRN (00:27)
[2017-03-15] MEDS: Levothyroxine 75 MCG Tab PO SCH (07:47)
[2017-03-15] MEDS: Insulin Aspart 100 Units/ML 3 ML Pen SUBCUT SCH ×4 (07:48→21:41)
[2017-03-15] MEDS: Potassium Chloride 10 MEQ Tab.ER PO SCH ×2 (07:49→18:46)
[2017-03-15] MEDS: Losartan 100 MG Tab PO SCH (08:47)
[2017-03-15] MEDS: Nicotine 14 MG/24 Hr Patch TRDERM SCH (08:48)
[2017-03-15] MEDS: Insulin Detemir 100 Units/ML 3 ML Pen SUBCUT SCH (08:49)
[2017-03-15] MEDS: amLODIPine 10 MG Tab PO SCH (08:50)
[2017-03-15] MEDS: Multivitamin Tab PO SCH (08:50)
[2017-03-15] MEDS: Cholecalciferol (Vitamin D3) 1,000 Unit Tab PO SCH (08:51)
[2017-03-15] MEDS: Metoprolol Succinate 50 MG Tab.ER PO SCH (08:51)
[2017-03-15] MEDS: Acetaminophen/Codeine 300-30 MG Tab PO SCH ×4 (09:19→21:40)
--- NOTE | 2017-03-15 10:41 | PN ---
DATE SEEN: 03/15/2017 SUBJECTIVE: Kelin Samuels is an 86-year-old female, admitted with generalized weakness, significant weight loss and lethargy. Myalgias are a major concern, soft tissue pain. Diagnostic studies performed including normal laboratory studies, normal CBC, electrolytes satisfactory, liver enzymes, satisfactory, C-reactive protein pending, sedimentation rate 42, CK 28, and normal studies. Radiology report; x-rays were unremarkable, abdomen CT revealed no significant consequences. Postoperative cholecystectomy changes, previous sphincterotomy, and benign cyst. Clinical response to prednisone had been noted. OBJECTIVE: VITAL SIGNS: 64.728 kg, 36.7 degrees centigrade, 145/61, mean blood pressure 89, respirations 17, O2 saturation 97%. GENERAL: In good spirits. Little groggy from [place]. Speech was fluent. NECK: Benign. Thyroid small. CHEST: Clear in all lung ordonez. HEART: Regular without ectopy or murmur. ABDOMEN: Benign. ASSESSMENT: Fatigue, myalgias, weakness, and weight loss. PLAN: CRP pending, full stool studies pending, clostridia was negative. We will start prednisone. Complementary care and well being. Proceed accordingly. Discharged to [facility]. Under consideration. /[id number] LYNSEY/MASSIEL
[2017-03-15] MEDS: predniSONE 20 MG Tab PO SCH (11:04)
[2017-03-15] MEDS: Albuterol/Ipratropium 3.0-0.5 MG/3 ML Neb Soln INH SCH (11:11)
[2017-03-15] MEDS: Psyllium 0.52 GM Cap PO SCH (21:41)
[2017-03-16] MEDS: Acetaminophen/Codeine 300-30 MG Tab PO SCH ×3 (00:34→08:43)
[2017-03-16 07:36] VITALS: BP 149/63
[2017-03-16] MEDS: Insulin Aspart 100 Units/ML 3 ML Pen SUBCUT SCH (07:36)
[2017-03-16] MEDS: Levothyroxine 75 MCG Tab PO SCH (07:38)
[2017-03-16] MEDS: Potassium Chloride 10 MEQ Tab.ER PO SCH (07:39)
[2017-03-16] MEDS: predniSONE 20 MG Tab PO SCH (07:39)
[2017-03-16] MEDS: Losartan 100 MG Tab PO SCH (08:42)
[2017-03-16] MEDS: Nicotine 14 MG/24 Hr Patch TRDERM SCH (08:44)
[2017-03-16] MEDS: Insulin Detemir 100 Units/ML 3 ML Pen SUBCUT SCH (08:44)
[2017-03-16] MEDS: Psyllium 0.52 GM Cap PO SCH (08:44)
[2017-03-16] MEDS: amLODIPine 10 MG Tab PO SCH (08:45)
[2017-03-16] MEDS: Multivitamin Tab PO SCH (08:46)
[2017-03-16] MEDS: Metoprolol Succinate 50 MG Tab.ER PO SCH (08:46)
[2017-03-16] MEDS: Cholecalciferol (Vitamin D3) 1,000 Unit Tab PO SCH (08:47)
[2017-03-16] MEDS: Albuterol/Ipratropium 3.0-0.5 MG/3 ML Neb Soln INH SCH (09:27)
--- NOTE | 2017-03-17 11:24 | DISCH ---
DISCHARGE DATE: 03/16/2017 DISCHARGE DIAGNOSES: 1. Acute gastroenteritis with nausea and vomiting and dehydration, resolved. 2. Complicated myalgias, consider polymyalgia rheumatica. 3. Diabetes mellitus. 4. Hypertension. HOSPITAL COURSE: Kelin Samuels is an 86-year-old female, admitted to [facility]. She presented with a two-day history of progressive decline in well-being. Really over some duration, more significant issues of a 12-pound weight loss, acute vomiting, and diarrhea. She has been seen by Dr. Angela on a couple of occasions with appropriate intervention. She was admitted to the hospital for treatment. She underwent appropriate diagnostic studies. Chest x-ray revealed no acute process, ASCD, and COPD. Abdomen and pelvis CT due to abdominal pain and vomiting revealed diverticulosis, ASCD, jejunal wall thickening, and free air in the bile duct from previous sphincterotomy, but no other pathology. Sedimentation rate was 42. C-reactive protein was 3.8, under suspicion for PMR. Was started on 20 mg of prednisone, and response was satisfactory. Return to home is difficult. Transfer to [facility] for rehab intervention and care. The patient is in agreement. Family is in agreement. SURGICAL PROCEDURES: None. CONSULTATIONS: None. DISCHARGE MEDICATIONS: Please see medication reconciliation list. /[id number] LYNSEY/MASSIEL
== END 2017-03-16 10:10 | DRG 392 ==
LOC: FB.ED 09:56 → FB.MS 12:35 → OBSVTOIN 19:35
PROVIDERS: ADMIT Emergency Medicine; ATTEND Family Medicine
DX: R15.9 Full incontinence of feces (principal); R19.7 Diarrhea, unspecified; K52.9 Noninfective gastroenteritis and colitis, unspecified; E86.0 Dehydration; I11.0 Hypertensive heart disease with heart failure; I50.9 Heart failure, unspecified; E11.40 Type 2 diabetes mellitus with diabetic neuropathy, unspecified; F17.210 Nicotine dependence, cigarettes, uncomplicated; E03.9 Hypothyroidism, unspecified; R63.4 Abnormal weight loss; R53.83 Other fatigue; R53.1 Weakness; M79.1 Myalgia; Z91.81 History of falling; Z23 Encounter for immunization; M19.90 Unspecified osteoarthritis, unspecified site; Z87.440 Personal history of urinary (tract) infections; H54.7 Unspecified visual loss; Z85.42 Personal history of malignant neoplasm of other parts of uterus; Z92.3 Personal history of irradiation; Z79.4 Long term (current) use of insulin; Z79.52 Long term (current) use of systemic steroids; Z88.1 Allergy status to other antibiotic agents; Z91.041 Radiographic dye allergy status; Z91.040 Latex allergy status; Z88.0 Allergy status to penicillin; Z91.013 Allergy to seafood; Z88.8 Allergy status to other drugs, medicaments and biological substances; M35.3 Polymyalgia rheumatica; K57.30 Diverticulosis of large intestine without perforation or abscess without bleeding
CPT/HCPCS: 36415; 80053; 81001; 82272; 82962; 85027; 85651; 87324; 87329; 96360; 96361; 96372; 99285; A9270 ×5; J7040 ×2; 71020; 74176; 80048; 80076; 82550; 84443; 86140; 87015; 87045; 87046; 87899; 90686; 94640; 97110-GP; 97116-GP; 97162-GP; 97165-GO; 97535-GO; 99284; G0008; J7620

== ENCOUNTER 2018-03-11 13:18 | Emergency (ER) | payer MEDICARE, OTHER ==
--- NOTE | 2018-03-11 13:58 | EDM.PDOC ---
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 She sprained her left ankle. She quickly put ice on it and presents to the ED accompanied by her daughter. The patient has polymyalgia rheumatica and has been tapering her prednisone from 20.10 mg of prednisone a day. This will interfere with any fracture healing process. He lives alone. She is . left ankle Pain Score (Numeric/FACES): 6 - Related Data Allergies Allergy/AdvReac Type Severity Reaction Status Date / Time amoxicillin Allergy Hives Verified 03/11/18 13:38 erythromycin base Allergy Swelling Verified 03/11/18 13:38 iodine Allergy Swelling Verified 03/11/18 13:38 latex Allergy Rash Verified 03/11/18 13:38 Penicillins Allergy Hives Verified 03/11/18 13:38 shellfish derived Allergy Difficulty Verified 03/11/18 13:38 Breathing Home Meds: Home Meds Insulin Glarg,Human.Rec.Analog [Lantus Solostar] 25 unit SUBCUT DAILY 11/30/15 [ History] Levothyroxine Sodium [Synthroid] 75 mcg PO ACBREAKFAST 11/30/15 [History] Losartan [Cozaar] 100 mg PO DAILY 11/30/15 [History] amLODIPine [Norvasc] 10 mg PO DAILY 11/30/15 [History] Albuterol/Ipratropium [DuoNeb 3.0-0.5 MG/3 ML] 3 ml INH DAILY 05/19/16 [History] Multivitamin [Multi-Vitamin Daily] 1 tab PO DAILY 05/19/16 [History] Furosemide [Lasix] 40 mg PO DAILY #30 tablet 12/07/16 [Rx] Acetaminophen [Tylenol Extra Strength] 1,000 mg PO TID PRN 03/13/17 [History] Albuterol/Ipratropium [DuoNeb 3.0-0.5 MG/3 ML] 3 ml IH DAILY PRN 03/13/17 [ History] Diclofenac Sodium [Voltaren] 1 applic TOP QID PRN 03/13/17 [History] Emollient [Vanicream] 1 applic TOP DAILY PRN 03/13/17 [History] Ibuprofen 600 mg PO BID PRN 03/13/17 [History] Insulin Aspart [NovoLOG] 5 unit SUBCUT TIDMEALS 03/13/17 [History] Nicotine [Habitrol] 14 mg TRDERM DAILY patch 03/16/17 [Rx] hydrOXYzine HCl [hydrOXYzine] 25 mg PO BEDTIME PRN #30 tablet 03/16/17 [Rx] Albuterol [Proventil HFA] 2 puff INH Q4H PRN 03/11/18 [History] Bifidobacterium Infantis [Align] 4 mg PO DAILY 03/11/18 [History] Ketorolac [Toradol] 10 mg PO Q6H PRN 03/11/18 [History] Loperamide HCl [Imodium A-D] 2 mg PO QID PRN 03/11/18 [History] Metoprolol Succinate [Toprol XL] 75 mg PO DAILY 03/11/18 [History] Potassium Chloride [Klor-Con 10] 20 meq PO DAILY 03/11/18 [History] predniSONE [Prednisone] 4 mg PO ASDIRECTED 03/11/18 [History] Past Medical History HEENT History: Reports: Impaired Vision Other HEENT History: wears glasses Cardiovascular History: Reports: Hypertension Other Cardiovascular History: CHF, HTN, has experienced HF after surgical procedures Respiratory History: Reports: Other (See Below) Other Respiratory History: smoker's cough Gastrointestinal History: Reports: Bowel Obstruction, Cholelithiasis, Chronic Diarrhea Other Gastrointestinal History: Small bowel obstruction with lysis of adhesions. 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 Neurological History: Reports: Neuropathy, Diabetic Other Neuro History: Seizure with low blood sugar episode. 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 - Infectious Disease History Infectious Disease History: Reports: Chicken Pox, Measles, Shingles - Past Surgical History HEENT Surgical History: Reports: Adenoidectomy, Cataract Surgery, Tonsillectomy Other Cardiovascular Surgeries/Procedures: had a superficial blood clot to the right arm from picc line. The line was pulled on 12/01/16. GI Surgical History: Reports: Appendectomy, Cholecystectomy, Colostomy, Other ( See Below) Musculoskeletal Surgical History: Reports: None Social & Family History - Family History Family Medical History: Noncontributory - Caffeine Use Caffeine Use: Reports: Coffee, Tea Review of Systems - Review of Systems Review Of Systems: See Below Constitutional: Reports: No Symptoms Eyes: Reports: No Symptoms Ears: Reports: No Symptoms Nose: Reports: No Symptoms Mouth/Throat: Reports: No Symptoms Respiratory: Reports: No Symptoms Cardiovascular: Reports: No Symptoms GI/Abdominal: Reports: No Symptoms Genitourinary: Reports: Incontinence Musculoskeletal: Reports: Joint Pain, Other (Left ankle joint pain with today' sinversion ankle sprain) Skin: Reports: No Symptoms Neurological: Reports: No Symptoms Psychiatric: Reports: No Symptoms ED EXAM, GENERAL - Physical Exam Exam: See Below Free Text/Narrative:: A pleasant 87-year-old woman accompanied by her daughter is sitting in the wheelchair and has wrapped her left ankle with ice wilmer wrap she is in mild distress Exam Limited By: No Limitations General Appearance: Alert, WD/WN Eye Exam: Bilateral Eye: Normal Inspection Ears: Normal External Exam Ear Exam: Bilateral Ear: Auricle Normal Throat/Mouth: Normal Inspection Head: Atraumatic, Normocephalic Neck: Normal Inspection, Supple, Non-Tender Respiratory/Chest: No Respiratory Distress, No Accessory Muscle Use, Other ( Rales noted anterior lower 50% chest bilaterally with quiet expiratory wheeze) Cardiovascular: Normal Peripheral Pulses, Regular Rate, Rhythm, No Edema, No Gallop, No JVD, No Murmur, No Rub, Other (1+ bilateral pedal edema) Peripheral Pulses: 1+: Radial (L), Radial (R), Dorsalis Pedis (L), Dorsalis Pedis (R) GI/Abdominal: Normal Bowel Sounds, Soft, Non-Tender, No Organomegaly, No Distention, No Abnormal Bruit, No Mass (Female) Exam: Deferred Rectal (Female) Exam: Deferred Back Exam: Normal Inspection Extremities: Other (Left lower extremity had an Wilmer ice wrapped removed under this there is minimal swelling of the left ankle mortise. Most pain C left lateral fibula calcaneal units anteriorly and posteriorly and his tenderness no proximal fifth metatarsal tenderness dorsalis pedis and posterior tibialis pulses intact range of motion is decreased but patient's pain no deformity of the ankle) Neurological: Alert, Oriented, Normal Cognition, No Motor/Sensory Deficits Skin Exam: Warm, Dry, Intact Lymphatic: No Adenopathy Course - Vital Signs Last Recorded V/S: Last Vital Signs Temp 36.5 C 03/11/18 13:20 Pulse 71 03/11/18 13:20 Resp 15 03/11/18 13:20 BP 148/41 H 03/11/18 13:20 Pulse Ox 98 03/11/18 13:20 - Orders/Labs/Meds Orders: Active Orders 24 hr Category Date Time Status Ankle Min 3V Lt [CR] Stat Exams 03/11/18 13:40 Taken Departure - Departure Time of Disposition: 14:50 Disposition: Home, Self-Care 01 Clinical Impression: Closed fibular fracture Qualifiers: Encounter type: initial encounter Fibula location: shaft Fracture morphology: oblique Fracture alignment: nondisplaced Laterality: left Qualified Code(s): S82.435A - Nondisplaced oblique fracture of shaft of left fibula, initial encounter for closed fracture - Discharge Information *PRESCRIPTION DRUG MONITORING PROGRAM REVIEWED*: Not Applicable *COPY OF PRESCRIPTION DRUG MONITORING REPORT IN PATIENT MALLORY: Not Applicable Instructions: Fibular Ankle Fracture Treated With or Without Immobilization, Adult Referrals: Albert Angela MD [Primary Care Provider] - - My Orders Last 24 Hours: My Active Orders 03/11/18 13:40 Ankle Min 3V Lt [CR] Stat - Assessment/Plan Last 24 Hours: My Active Orders 03/11/18 13:40 Ankle Min 3V Lt [CR] Stat
[2018-03-11 15:23] VITALS: BP 143/48
--- NOTE | 2018-03-12 13:12 | CR ---
INDICATION: Fell, hurt her ankle, rolled ankle on steps. LEFT ANKLE: Three views of the left ankle revealed an oblique fracture through the distal shaft, extending through the metaphysis of the fibula, which is in good position and alignment. The ankle mortise appeared fairly intact. A mild degree of demineralization may be present, raising question of osteoporosis - correlate clinically. Posterior calcaneal spur is noted of small size with very tiny plantar calcaneal spur and some minimal calcification in that area, which could be due to calcific tendinitis. Calcifications are noted in calf arteries. IMPRESSION: 1. Fibular fracture in good position and alignment. 2. Possible osteoporosis - correlate clinically. 3. Probable ASD. MTDD
== END 2018-03-11 15:15 | disposition home or self-care (01) ==
LOC: FB.ED 13:18
DX: S82.435A Nondisplaced oblique fracture of shaft of left fibula, initial encounter for closed fracture (principal); I11.0 Hypertensive heart disease with heart failure; I50.9 Heart failure, unspecified; E11.40 Type 2 diabetes mellitus with diabetic neuropathy, unspecified; F17.210 Nicotine dependence, cigarettes, uncomplicated; Z79.4 Long term (current) use of insulin; Z88.1 Allergy status to other antibiotic agents; Z88.0 Allergy status to penicillin; Z91.013 Allergy to seafood; Z91.040 Latex allergy status; W10.9XXA Fall (on) (from) unspecified stairs and steps, initial encounter; X50.1XXA Overexertion from prolonged static or awkward postures, initial encounter
CPT/HCPCS: 29515; 73610-LT; 99283

== ENCOUNTER 2018-12-19 20:47 | Emergency (ER) | payer MEDICARE, OTHER ==
[2018-12-19] MEDS ORDERED: Triamcinolone Acetonide 40 MG/ML 1 ML MDV IM ONE (21:12)
[2018-12-19] MEDS ORDERED: diphenhydrAMINE 50 MG/ML SDV IM ONE (21:12)
--- NOTE | 2018-12-19 21:24 | EDM.PDOC ---
ED HPI GENERAL MEDICAL PROBLEM - General Stated Complaint: SWELLING ON LIP Time Seen by Provider: 12/19/18 21:18 Source of Information: Reports: Patient History Limitations: Reports: No Limitations - History of Present Illness INITIAL COMMENTS - FREE TEXT/NARRATIVE: Kelin come in with swelling in the lips,lower lip of the mouth for the last 3- 4 hours.Getting better,but was initially associated with a 'funny" feeling to the mouth and throat. Denies any chest pain,dysphagia or SOB. Has HTN,stable. - Related Data Allergies Allergy/AdvReac Type Severity Reaction Status Date / Time amoxicillin Allergy Hives Verified 03/24/18 12:06 erythromycin base Allergy Swelling Verified 03/24/18 12:06 iodine Allergy Swelling Verified 03/24/18 12:06 latex Allergy Rash Verified 03/24/18 12:06 Penicillins Allergy Hives Verified 03/24/18 12:06 shellfish derived Allergy Difficulty Verified 03/24/18 12:06 Breathing Home Meds: Home Meds Insulin Glarg,Human.Rec.Analog [Lantus Solostar] 22 unit SUBCUT DAILY 11/30/15 [ History] Levothyroxine Sodium [Synthroid] 75 mcg PO ACBREAKFAST 11/30/15 [History] Losartan [Cozaar] 100 mg PO DAILY 11/30/15 [History] amLODIPine [Norvasc] 10 mg PO DAILY 11/30/15 [History] Multivitamin [Multi-Vitamin Daily] 1 tab PO DAILY 05/19/16 [History] Furosemide [Lasix] 40 mg PO DAILY #30 tablet 12/07/16 [Rx] Albuterol/Ipratropium [DuoNeb 3.0-0.5 MG/3 ML] 3 ml IH DAILY PRN 03/13/17 [ History] Diclofenac Sodium [Voltaren] 1 applic TOP QID PRN 03/13/17 [History] Insulin Aspart [NovoLOG] See Protocol SUBCUT TIDMEALS 03/13/17 [History] Albuterol [Proventil HFA] 2 puff INH Q4H PRN 03/11/18 [History] Bifidobacterium Infantis [Align] 4 mg PO DAILY 03/11/18 [History] Loperamide HCl [Imodium A-D] 2 mg PO DAILY 03/11/18 [History] Metoprolol Succinate [Toprol XL] 75 mg PO DAILY 03/11/18 [History] predniSONE [Prednisone] 4 mg PO WITHBREAKFAST 03/11/18 [History] Acetaminophen/Codeine [Tylenol with Codeine No.3 300MG/30MG] 2 tab PO Q4H PRN # 0 tablet 03/24/18 [Rx] Nicotine [Habitrol] 14 mg TOP DAILY 03/24/18 [History] Potassium Chloride 10 meq PO BID 03/24/18 [History] Sodium Chloride 1 gm PO DAILY 03/24/18 [History] Past Medical History HEENT History: Reports: Impaired Vision Other HEENT History: wears glasses Cardiovascular History: Reports: Heart Failure, Hypertension, Syncope Other Cardiovascular History: CHF, HTN, has experienced HF after surgical procedures Respiratory History: Reports: COPD, Other (See Below) Other Respiratory History: smoker's cough, O2 @ hs @ 2L/NC Gastrointestinal History: Reports: Bowel Obstruction, Cholelithiasis, Chronic Diarrhea Other Gastrointestinal History: Small bowel obstruction with lysis of adhesions. Genitourinary History: Reports: Renal Disease, UTI, Recurrent KEY FILER History: Reports: Other KEY FILER History: Musculoskeletal History: Reports: Arthritis, Back Pain, Chronic, Fracture Other Musculoskeletal History: Hx fx R wrist, ribs, L ankle, DJD, Neurological History: Reports: Neuropathy, Diabetic, Seizure Other Neuro History: Seizure with low blood sugar episode. Psychiatric History: Reports: Depression Endocrine/Metabolic History: Reports: Diabetes, Type II, Hypothyroidism Hematologic History: Reports: Anemia, Other (See Below) Other Hematologic History: polymyalgia Immunologic History: Reports: None Oncologic (Cancer) History: Reports: Uterine Other Oncologic History: vaginal radiation Dermatologic History: Reports: Eczema Other Dermatologic History: Dry skin areas on face. - Infectious Disease History Infectious Disease History: Reports: Chicken Pox, Measles, Shingles - Past Surgical History HEENT Surgical History: Reports: Adenoidectomy, Cataract Surgery, Tonsillectomy Other HEENT Surgeries/Procedures: bilat cataract surgery GI Surgical History: Reports: Appendectomy, Cholecystectomy, Colostomy, Other ( See Below) Other GI Surgeries/Procedures: LATESHA Female Surgical History: Reports: Hysterectomy, Salpingo-Oophorectomy Musculoskeletal Surgical History: Reports: None Social & Family History - Family History Family Medical History: Noncontributory - Caffeine Use Caffeine Use: Reports: Coffee ED ROS ALLERGIC REACTION - Review of Systems Review Of Systems: ROS reveals no pertinent complaints other than HPI. ED EXAM GENERAL NO PERIP PULSE - Physical Exam Exam: See Below Exam Limited By: No Limitations General Appearance: Alert, WD/WN Nose: Normal Inspection Throat/Mouth: Other (edema of lower lip of mouth). No: Normal Lips, Dysphagia Head: Atraumatic Neck: Normal Inspection Respiratory/Chest: No Respiratory Distress Cardiovascular: Normal Peripheral Pulses Course - Orders/Labs/Meds Meds: Medications Discontinued Medications Generic Name Dose Route Start Last Admin Trade Name Moisés PRN Reason Stop Dose Admin Diphenhydramine HCl 25 mg 12/19/18 21:12 Benadryl IM 12/19/18 21:13 ONETIME ONE Triamcinolone Acetonide 40 mg 12/19/18 21:12 Kenalog-40 IM 12/19/18 21:13 ONETIME ONE Departure - Departure Time of Disposition: 21:22 Disposition: Home, Self-Care 01 Condition: Good Clinical Impression: Allergic reaction - Discharge Information Instructions: Drug Allergy Referrals: Albert Angela MD [Primary Care Provider] - Additional Instructions: I have recommended to stop Losartan,please call Dr Angela in the morning to see if he can recommend an alternative - Problem List & Annotations (1) HTN, goal below 140/90 SNOMED Code(s): 45943925 Code(s): I10 - ESSENTIAL (PRIMARY) HYPERTENSION Status: Chronic (2) Allergic reaction SNOMED Code(s): 121502465 Code(s): T78.40XA - ALLERGY, UNSPECIFIED, INITIAL ENCOUNTER Status: Acute Qualifiers: Encounter type: initial encounter Qualified Code(s): T78.40XA - Allergy, unspecified, initial encounter - Problem List Review Problem List Initiated/Reviewed/Updated: Yes - Assessment/Plan Plan: I gave her Benadryl and Kenalog IM,and will discharge her. My feeling is that is it may be to angioedema. I have recommended to stop Losartan and have Dr Angela recommend an alternative.
[2018-12-20] VITALS: BP 147/49; PULSE 69
== END 2018-12-19 21:30 | disposition home or self-care (01) ==
LOC: FB.ED 20:47
DX: T78.40XA Allergy, unspecified, initial encounter (principal); I11.0 Hypertensive heart disease with heart failure; I50.9 Heart failure, unspecified; J44.9 Chronic obstructive pulmonary disease, unspecified; F32.9 Major depressive disorder, single episode, unspecified; E11.9 Type 2 diabetes mellitus without complications; E03.9 Hypothyroidism, unspecified; Z88.1 Allergy status to other antibiotic agents; Z91.048 Other nonmedicinal substance allergy status; Z91.040 Latex allergy status; Z91.013 Allergy to seafood; Z79.4 Long term (current) use of insulin; Z79.899 Other long term (current) drug therapy
CPT/HCPCS: 96372; 99283; J1200; J3301; 99282

== ENCOUNTER 2019-04-24 11:21 | Emergency (ER) | payer MEDICARE, OTHER ==
[2019-04-24] MEDS ORDERED: Sodium Chloride 0.9% 1,000 ML IV SCH (12:45)
[2019-04-24] MEDS ORDERED: Insulin Lispro 100 Unit/ML 3 ML KwikPen SUBCUT ONE (13:16)
[2019-04-24] MEDS ORDERED: Sodium Chloride 0.9% 10 ML Syringe FLUSH PRN (14:28)
--- NOTE | 2019-04-24 15:15 | EDM.PDOC ---
ED HPI GENERAL MEDICAL PROBLEM - General Chief Complaint: Diabetic Complaint Stated Complaint: SENT FROM CLINIC Time Seen by Provider: 04/24/19 11:25 Source of Information: Reports: Patient History Limitations: Reports: No Limitations - History of Present Illness INITIAL COMMENTS - FREE TEXT/NARRATIVE: Patient presented to the Ed because of hyperglycemia and lethargy. Per NH staff patient is currently being treated beacuse of C dif colitis and is taking vancomycin. Lately she has been sleeping a lot more than usual and her BS has been out of control, more than 500 usually in the morning. There is no associated fever,chills,N/V except for the loose stools. - Related Data Allergies Allergy/AdvReac Type Severity Reaction Status Date / Time amoxicillin Allergy Hives Verified 04/24/19 12:20 erythromycin base Allergy Swelling Verified 04/24/19 12:20 iodine Allergy Swelling Verified 04/24/19 12:20 latex Allergy Rash Verified 04/24/19 12:20 Penicillins Allergy Hives Verified 04/24/19 12:20 shellfish derived Allergy Difficulty Verified 04/24/19 12:20 Breathing Home Meds: Home Meds Insulin Glarg,Human.Rec.Analog [Lantus Solostar] 22 unit SUBCUT DAILY 11/30/15 [ History] Levothyroxine Sodium [Synthroid] 75 mcg PO ACBREAKFAST 11/30/15 [History] Losartan [Cozaar] 100 mg PO DAILY 11/30/15 [History] amLODIPine [Norvasc] 10 mg PO DAILY 11/30/15 [History] Multivitamin [Multi-Vitamin Daily] 1 tab PO DAILY 05/19/16 [History] Furosemide [Lasix] 40 mg PO DAILY #30 tablet 12/07/16 [Rx] Albuterol/Ipratropium [DuoNeb 3.0-0.5 MG/3 ML] 3 ml IH DAILY PRN 03/13/17 [ History] Diclofenac Sodium [Voltaren] 1 applic TOP QID PRN 03/13/17 [History] Insulin Aspart [NovoLOG] See Protocol SUBCUT TIDMEALS 03/13/17 [History] Albuterol [Proventil HFA] 2 puff INH Q4H PRN 03/11/18 [History] Bifidobacterium Infantis [Align] 4 mg PO DAILY 03/11/18 [History] Loperamide HCl [Imodium A-D] 2 mg PO DAILY 03/11/18 [History] Metoprolol Succinate [Toprol XL] 75 mg PO DAILY 03/11/18 [History] predniSONE [Prednisone] 4 mg PO WITHBREAKFAST 03/11/18 [History] Acetaminophen/Codeine [Tylenol with Codeine No.3 300MG/30MG] 2 tab PO Q4H PRN # 0 tablet 03/24/18 [Rx] Nicotine [Habitrol] 14 mg TOP DAILY 03/24/18 [History] Potassium Chloride 10 meq PO BID 03/24/18 [History] Sodium Chloride 1 gm PO DAILY 03/24/18 [History] Sulfamethoxazole/Trimethoprim [Bactrim Ds Tablet] 1 each PO BID #6 tablet [Rx] Past Medical History HEENT History: Reports: Impaired Vision Other HEENT History: wears glasses Cardiovascular History: Reports: Heart Failure, Hypertension, Syncope Other Cardiovascular History: CHF, HTN, has experienced HF after surgical procedures Respiratory History: Reports: COPD, Other (See Below) Other Respiratory History: smoker's cough, O2 @ hs @ 2L/NC Gastrointestinal History: Reports: Bowel Obstruction, Cholelithiasis, Chronic Diarrhea Other Gastrointestinal History: Small bowel obstruction with lysis of adhesions. Genitourinary History: Reports: Renal Disease, UTI, Recurrent DRAG SEINER History: Reports: Other DRAG SEINER History: Musculoskeletal History: Reports: Arthritis, Back Pain, Chronic, Fracture Other Musculoskeletal History: Hx fx R wrist, ribs, L ankle, DJD, L hip fx Neurological History: Reports: Neuropathy, Diabetic, Seizure Other Neuro History: Seizure with low blood sugar episode. 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 - Infectious Disease History Infectious Disease History: Reports: C-Difficile, Measles - Past Surgical History HEENT Surgical History: Reports: Adenoidectomy, Cataract Surgery, Tonsillectomy Other HEENT Surgeries/Procedures: bilat cataract surgery GI Surgical History: Reports: Appendectomy, Cholecystectomy, Colostomy, Other ( See Below) Other GI Surgeries/Procedures: LATESHA Female Surgical History: Reports: Hysterectomy, Salpingo-Oophorectomy Musculoskeletal Surgical History: Reports: Hip Replacement Other Musculoskeletal Surgeries/Procedures:: L hip Social & Family History - Family History Family Medical History: Noncontributory - Tobacco Use Smoking Status *Q: Current Some Day Smoker Years of Tobacco use: 60 Packs/Tins Daily: 0.1 - Caffeine Use Caffeine Use: Reports: Coffee, Tea - Recreational Drug Use Recreational Drug Use: No ED ROS GENERAL - Review of Systems Review Of Systems: See Below Constitutional: Reports: No Symptoms HEENT: Reports: No Symptoms Respiratory: Reports: No Symptoms Cardiovascular: Reports: No Symptoms Endocrine: Reports: No Symptoms GI/Abdominal: Reports: No Symptoms : Reports: No Symptoms Musculoskeletal: Reports: No Symptoms Skin: Reports: No Symptoms Neurological: Reports: Weakness, Other (letharygy) ED EXAM GENERAL NO PERIP PULSE - Physical Exam Exam: See Below Exam Limited By: No Limitations General Appearance: No Apparent Distress, Lethargic Ears: Normal External Exam, Normal Canal, Hearing Grossly Normal, Normal TMs Nose: Normal Inspection, Normal Mucosa, No Blood Throat/Mouth: Normal Inspection, Normal Lips, Normal Teeth, Normal Gums Head: Atraumatic, Normocephalic Neck: Normal Inspection, Supple, Non-Tender, Full Range of Motion Respiratory/Chest: No Respiratory Distress, Lungs Clear, Normal Breath Sounds, No Accessory Muscle Use, Chest Non-Tender Cardiovascular: Normal Peripheral Pulses, Regular Rate, Rhythm, No Edema, No Gallop, No JVD GI/Abdominal: Normal Bowel Sounds, Soft, Non-Tender, No Organomegaly, No Distention, No Abnormal Bruit, No Mass Neurological: Oriented, CN II-XII Intact, Normal Cognition, Normal Gait, No Motor/Sensory Deficits Psychiatric: Normal Affect, Normal Mood Skin Exam: Warm, Dry, Intact, Normal Color, No Rash Lymphatic: No Adenopathy Course - Vital Signs Text/Narrative:: reviewed with patient and family NS 1 L bolus She did improved significantly after IVF hydration Last Recorded V/S: Last Vital Signs Temp 36.4 C 04/24/19 11:21 Pulse 85 04/24/19 15:15 Resp 18 04/24/19 15:15 BP 135/83 04/24/19 15:15 Pulse Ox 98 04/24/19 15:15 - Orders/Labs/Meds Labs: Laboratory Tests 04/24/19 04/24/19 04/24/19 Range/Units 11:25 11:25 12:26 WBC 18.5 H (4.5-12.0) X10-3/uL RBC 3.46 (3.23-5.20) x10(6)uL Hgb 10.8 L (11.5-15.5) g/dL Hct 31.2 (30.0-51.3) % MCV 90.2 (80-96) fL MCH 31.4 (27.7-33.6) pg MCHC 34.8 (32.2-35.4) g/dL RDW 13.0 (11.5-15.5) % Plt Count 404 H (125-369) X10(3)uL MPV 8.9 (7.4-10.4) fL Add Manual Diff Yes Neutrophils % (Manual) 91 H (46-82) % Lymphocytes % (Manual) 5 L (13-37) % Monocytes % (Manual) 4 (4-12) % Sodium 131 L (135-145) mmol/L Potassium 4.5 (3.5-5.3) mmol/L Chloride 97 L (100-110) mmol/L Carbon Dioxide 22 (21-32) mmol/L BUN 34 H D (7-18) mg/dL Creatinine 1.5 H (0.55-1.02) mg/dL Est Cr Clr Drug Dosing 22.39 mL/min Estimated GFR (MDRD) 33 L (>60) BUN/Creatinine Ratio 22.7 H (9-20) Glucose 388 H D (80-116) mg/dL POC Glucose 337 H D (80-116) mg/dL Calcium 9.2 (8.6-10.2) mg/dL Total Bilirubin 0.5 (0.1-1.3) mg/dL AST 16 D (5-25) IU/L ALT 18 D (12-36) U/L Alkaline Phosphatase 106 (56-112) IU/L Total Protein 7.4 (6.0-8.0) g/dL Albumin 3.8 (3.2-4.6) g/dL Globulin 3.6 g/dL Albumin/Globulin Ratio 1.1 Urine Color (YELLOW) Urine Appearance (CLEAR) Urine pH (5.0-6.5) Ur Specific [place] (1.010-1.025) Urine Protein (NEGATIVE) mg/dL Urine Glucose (UA) (NORMAL) mg/dL Urine Ketones (NEGATIVE) mg/dL Urine Occult Blood (NEGATIVE) Urine Nitrite (NEGATIVE) Urine Bilirubin (NEGATIVE) Urine Urobilinogen (NEGATIVE) mg/dL Ur Leukocyte Esterase (NEGATIVE) Urine RBC (0-5) Urine WBC (0-5) Ur Squamous Epith Cells (NS,R,O) Amorphous Sediment Urine Bacteria (NS) 04/24/19 04/24/19 Range/Units 14:06 15:09 WBC (4.5-12.0) X10-3/uL RBC (3.23-5.20) x10(6)uL Hgb (11.5-15.5) g/dL Hct (30.0-51.3) % MCV (80-96) fL MCH (27.7-33.6) pg MCHC (32.2-35.4) g/dL RDW (11.5-15.5) % Plt Count (125-369) X10(3)uL MPV (7.4-10.4) fL Add Manual Diff Neutrophils % (Manual) (46-82) % Lymphocytes % (Manual) (13-37) % Monocytes % (Manual) (4-12) % Sodium (135-145) mmol/L Potassium (3.5-5.3) mmol/L Chloride (100-110) mmol/L Carbon Dioxide (21-32) mmol/L BUN (7-18) mg/dL Creatinine (0.55-1.02) mg/dL Est Cr Clr Drug Dosing mL/min Estimated GFR (MDRD) (>60) BUN/Creatinine Ratio (9-20) Glucose (80-116) mg/dL POC Glucose 282 H (80-116) mg/dL Calcium (8.6-10.2) mg/dL Total Bilirubin (0.1-1.3) mg/dL AST (5-25) IU/L ALT (12-36) U/L Alkaline Phosphatase (56-112) IU/L Total Protein (6.0-8.0) g/dL Albumin (3.2-4.6) g/dL Globulin g/dL Albumin/Globulin Ratio Urine Color Yellow (YELLOW) Urine Appearance Clear (CLEAR) Urine pH 5.0 (5.0-6.5) Ur Specific [place] 1.010 (1.010-1.025) Urine Protein Negative (NEGATIVE) mg/dL Urine Glucose (UA) >1000 H (NORMAL) mg/dL Urine Ketones 15 H (NEGATIVE) mg/dL Urine Occult Blood Negative (NEGATIVE) Urine Nitrite Negative (NEGATIVE) Urine Bilirubin Negative (NEGATIVE) Urine Urobilinogen Normal (NEGATIVE) mg/dL Ur Leukocyte Esterase Small H (NEGATIVE) Urine RBC 0-5 (0-5) Urine WBC 5-10 H (0-5) Ur Squamous Epith Cells Few H (NS,R,O) Amorphous Sediment Few Urine Bacteria Few H (NS) Meds: Medications Discontinued Medications Generic Name Dose Route Start Last Admin Trade Name Freq PRN Reason Stop Dose Admin Sodium Chloride 1,000 mls @ 999 mls/hr 04/24/19 12:45 04/24/19 14:13 Normal Saline IV 999 mls/hr ASDIRECTED NICKI Administration Insulin Human Lispro 16 unit 04/24/19 13:16 04/24/19 13:24 Humalog SUBCUT 04/24/19 13:17 16 units ONETIME ONE Administration Sodium Chloride 10 ml 04/24/19 14:28 04/24/19 14:29 Saline Flush FLUSH 10 ml ASDIRECTED PRN Administration KEEP VEIN OPEN Departure - Departure Time of Disposition: 15:10 Disposition: DC/Tfer to [facility] 03 Condition: Good Clinical Impression: Hyperglycemia, UTI (urinary tract infection), Clostridium difficile colitis - Discharge Information Prescriptions: Sulfamethoxazole/Trimethoprim [Bactrim Ds Tablet] 1 each PO BID #6 tablet Instructions: Clostridium Difficile Infection, [id number], Urinary Tract Infection, Adult, [id number], Hyperglycemia, [id number] Referrals: Albert Angela MD [Primary Care Provider] - Forms: ED Department Discharge Additional Instructions: Please read discharge instructions on c dif colitis,UTI, hyperglycemia increase oral fluids Bactrim DS 1 tablet twice daily for 3 days follow up urine culture result continue vancomycin increase evening novolog to 8 U SC hold lasix/furosemide for 3 days due to dehydration
[2019-04-24 20:47] VITALS: BP 135/83; PULSE 85
== END 2019-04-24 15:34 ==
LOC: FB.ED 11:21
DX: E11.65 Type 2 diabetes mellitus with hyperglycemia (principal); N39.0 Urinary tract infection, site not specified; A04.72 Enterocolitis due to Clostridium difficile, not specified as recurrent; I11.0 Hypertensive heart disease with heart failure; I50.9 Heart failure, unspecified; F17.210 Nicotine dependence, cigarettes, uncomplicated; Z88.1 Allergy status to other antibiotic agents; Z91.048 Other nonmedicinal substance allergy status; Z91.040 Latex allergy status; Z88.0 Allergy status to penicillin; Z91.013 Allergy to seafood; Z79.4 Long term (current) use of insulin; Z79.899 Other long term (current) drug therapy; Z90.49 Acquired absence of other specified parts of digestive tract
CPT/HCPCS: 36415; 71046; 80053; 81001; 82962; 85025; 87086; 96372; 99283; J1815; J7030; 99284